=== PATIENT | female | born 1985 | race Caucasian/White ===

== ENCOUNTER 2020-05-10 14:27 | Outpatient (REF) | payer MEDICARE, MEDICAID, SELFPAY ==
[2020-05-10 17:29] LABS: Syphilis Screen Nonreactive (Nonreactive)
[2020-05-11 04:06] LABS: HBsAGNum1 0.26 S/CO (0.00-0.99); HIV AB/AG Nonreactive (Nonreactive); HIV Num 1 0.13 S/CO (0.00-0.99); Hepatitis B Surface Antigen Negative (Negative); ~Hepatitis C Antibody Nonreactive (Nonreactive)
[2020-05-11 09:36] LABS: BV Int Neg Control Negative (Negative); BV Int Pos Control Positive (Positive)
[2020-05-16 11:34] LABS: CT PCR DETECTED (Not Detect.); NG PCR DETECTED (Not Detect.)
== END 2020-05-10 14:28 | disposition home or self-care (01) ==
LOC: HO.LAB 14:27
PROVIDERS: Visit Provider Advanced Practice Midwife
DX: Z01.419 Encounter for gynecological examination (general) (routine) without abnormal findings (principal); Z20.2 Contact with and (suspected) exposure to infections with a predominantly sexual mode of transmission
CPT/HCPCS: 86780; 86803; 87340; 87389; 87480; 87491; 87510; 87591; 87660

== ENCOUNTER 2020-07-08 15:14 | Emergency (ER) | payer MEDICARE, MEDICAID, SELFPAY ==
[2020-07-08 15:38] VITALS: BP 122/60; PULSE 75; RESP 16; TEMP 36.8; O2SAT 97; BMI 23.1
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
[2020-07-08 19:43] VITALS: BP 121/62; PULSE 60; RESP 20; O2SAT 97
[2020-07-08] MEDS: Ibuprofen 600 MG TABLET PO (20:02)
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
== END 2020-07-08 20:10 | disposition home or self-care (01) ==
PROVIDERS: Emergency Provider Internal Medicine
DX: S06.0X0A Concussion without loss of consciousness, initial encounter (principal); S22.32XA Fracture of one rib, left side, initial encounter for closed fracture; S01.81XA Laceration without foreign body of other part of head, initial encounter; Y04.2XXA Assault by strike against or bumped into by another person, initial encounter; Y93.9 Activity, unspecified; Y92.9 Unspecified place or not applicable; Y99.9 Unspecified external cause status; Z95.0 Presence of cardiac pacemaker
CPT/HCPCS: 70450; 71250; 72125; 90471; 90715; 99284

== ENCOUNTER → 2020-07-31 13:22 | Outpatient (BNVA) | payer MEDICARE, MEDICAID, SELFPAY | PROVIDERS: Visit Provider Internal Medicine | DX: I49.5 Sick sinus syndrome (principal); I49.8 Other specified cardiac arrhythmias; Z95.0 Presence of cardiac pacemaker | CPT/HCPCS: 93005; 99212 ==

== ENCOUNTER → 2020-08-09 11:33 | Outpatient (BNVA) | payer MEDICARE, MEDICAID, SELFPAY | PROVIDERS: Visit Provider Advanced Practice Midwife ==

== ENCOUNTER 2020-09-07 12:35 | Emergency (ER) | payer OTHER, SELFPAY ==
--- NOTE | ~2020-09-07 | XR_ITS ---
EXAMINATION: XR SHOULDER, RIGHT CLINICAL INFORMATION: Post reduction COMPARISON: 09/07/2020 TECHNIQUE: There are 2 additional views of the right shoulder with an additional post reduction view of the right shoulder. FINDINGS: On the initial 2 images, there is residual anterior subluxation of the right humeral head in relation to the glenoid. On the final internal rotation image, alignment at the glenohumeral joint appears improved and now anatomic. There is no acute fracture. There is a depression along the superolateral aspect of the humeral head, consistent with a Hill-Sachs deformity. XR/XR shoulder RT min 2V IMPRESSION: Reduction of the right shoulder dislocation. Appropriate alignment on the final image.
--- NOTE | ~2020-09-07 | XR_ITS ---
EXAMINATION: XR SHOULDER, RIGHT CLINICAL INFORMATION: Fall in shower. Shoulder dislocation. COMPARISON: 01/04/2019 TECHNIQUE: Two views of the right shoulder. FINDINGS: There is anterior dislocation of the humeral head in relation to the glenoid. No acute fractures are seen. The acromioclavicular joint is intact. Overlying ribs are intact. The visualized lung is clear. XR/XR shoulder RT min 2V IMPRESSION: Anterior right shoulder dislocation.
--- NOTE | ~2020-09-07 | XR_ITS ---
EXAMINATION: XR SHOULDER, RIGHT CLINICAL INFORMATION: Post reduction COMPARISON: 09/07/2020 TECHNIQUE: There are 2 additional views of the right shoulder with an additional post reduction view of the right shoulder. FINDINGS: On the initial 2 images, there is residual anterior subluxation of the right humeral head in relation to the glenoid. On the final internal rotation image, alignment at the glenohumeral joint appears improved and now anatomic. There is no acute fracture. There is a depression along the superolateral aspect of the humeral head, consistent with a Hill-Sachs deformity. XR/XR shoulder RT 1V IMPRESSION: Reduction of the right shoulder dislocation. Appropriate alignment on the final image.
[2020-09-07 12:51] VITALS: BP 140/62; PULSE 68; RESP 18; TEMP 36.8; O2SAT 94; BMI 22.4
--- NOTE | 2020-09-07 13:54 | ED_ITS ---
HPI - Extremity Problem General Chief complaint: Extremity Injury, Upper Stated complaint: R SHOULDER OUT Time Seen by Provider: 09/07/20 13:47 Source: patient Mode of arrival: ambulatory Limitations: no limitations History of Present Illness HPI Narrative: States having right shoulder dislocation after reaching over and drying herself after shower has had history of dislocation in the past. MD Complaint: extremity pain (Right shoulder) Onset (ago): hour(s) (1 hour prior to arrival) Location: right and upper extremity Quality: aching Radiation: none Relieving factors: immobilization Exacerbating factors: range of motion and palpation Associated symptoms: denies other symptoms Related Data Home Medications Medication Instructions Recorded Confirmed divalproex 500 mg tablet,delayed 500 mg PO DAILY tab 07/31/20 07/31/20 release quetiapine 50 mg tablet 100 mg PO BEDTIME 07/31/20 07/31/20 Previous Rx's Medication Instructions Recorded cyclobenzaprine 5 mg PO TID PRN #14 tab 09/07/20 ibuprofen 800 mg PO Q8H PRN #30 tab 09/07/20 Allergies Allergy/AdvReac Type Severity Reaction Status Date / Time No Known Allergies Allergy Verified 08/09/20 11:34 [No Known Allergies*] Review of Systems Review of Systems: Constitutional: No Weight loss, No Fever, No Chills, No Night Sweats, No Fatigue, No Malaise ENT/Mouth: No Hearing loss, No Ear Pain, No Nasal Congestion, No Sinus Pain, No Hoarseness, No sore throat, No Rhinorrhea, No Swallowing Difficulty Eyes: No Eye Pain, No Swelling, No Redness, No Foreign Body, No Discharge, No Vision Changes Cardiovascular: No Chest Pain, No SOB, No Dyspnea on Exertion, No Orthopnea, No Edema, No Palpitations Respiratory: No Cough, No Sputum, No Wheezing, No Dyspnea Gastrointestinal: No Nausea, No Vomiting, No Diarrhea, No Constipation, No abdominal Pain, No Hematochezia, No Melena Genitourinary: no irregular bleeding, No Dysuria, No Urinary Frequency, No Hematuria, No Urinary Incontinence, No Urgency, No Flank Pain, No Urinary Flow Changes, No Hesitancy Musculoskeletal: No joint pain, No Myalgias, No Joint Swelling, as noted per HPI Skin: No Skin Lesions, No rash Neuro: No Weakness, No Numbness, No Paresthesias, No Loss of Consciousness, No Dizziness, No Headache Psych: No Social Issues Heme/Lymph: No Bruising, No Bleeding,No Lymphadenopathy Endocrine: No Polyuria, No Polydipsia, No Temperature Intolerance Yes all other systems are reviewed and are negative [facility] Past Medical History Medical History Atrial arrhythmia Bradycardia Hx of bipolar disorder Normally functioning cardiac pacemaker present Pacemaker Sick sinus syndrome Speech impediment Surgical History Hx of cardiac pacemaker (~2014) Hx of laparoscopy Family History Family History (Updated 07/31/20 @ 13:52 by DEZ Geiger) Father No problems noted. Mother No problems noted. Social History Social History Alcohol intake: never Smoking Status: Never smoker Advance Directives: No Advance Directives Information Provided: Yes Sexual orientation: Straight/Heterosexual Physical Exam Vital Signs: Vital Signs: Last Vital Signs Temp 98.3 F 09/07/20 12:51 Pulse 50 09/07/20 14:20 Resp 12 09/07/20 14:20 BP 109/63 09/07/20 14:20 Pulse Ox 98 09/07/20 14:20 Body Mass Index 22.4 Reviewedf Const: General: cooperative and healthy appearing; No acute distress or intoxicated appearing Nutritional Appearance: average body habitus Orientation/consciousness: patient oriented x3 HENMT: Head: Yes normal to inspection Ears: hearing grossly normal bilaterally Eyes: General: appearance normal, both eyes and all related structures Visual Ruiz: normal visual ruiz by confrontation Neck: Neck: Yes normal visual inspection, No positive Brudzinski's sign, No positive Kernig's sign and No tender Thyroid: Thyroid normal Chest: Chest palpation & inspection: normal inspection of the chest Resp: Effort & Inspection: normal respiratory effort Auscultation: clear to auscultation bilaterally Cardio: Jugular venous distension: no JVD Rhythm: regular rhythm Heart sounds: S1 normal heart sound present and S2 normal heart sound present GI: Inspection: Yes normal to inspection Percussion: Yes normal to percussion Auscultation: normal bowel sounds : General: Yes no CVA tenderness Back/Spine/Pelvis: Back: no CVA tenderness Skin: General skin exam: no rashes or lesions noted Neuro: General: patient oriented x3 Extrem: Other: Distally cap refill within normal limits, no tenting, pulses within normal limits. Sensation within normal limits. No swelling. General: Yes normal to inspection Right upper extremity: shoulder/upper arm Details: abnormal to inspection Details: obvious dislocation (Anterior) and tenderness Course Course Course Narrative: Interview 34-year-old female with above history presenting with complaint of right shoulder pain feels like her shoulder dislocated has history of it had x-rays done upon arrival showed findings consistent with anterior dislocation subsequently brought to ED room and IV placed she has had this done before and did well with reduction in the past IV line established and given 100 mcqs of fentanyl and shoulder was reduced with ease using the Barnwell method and post reduction x-ray was done to confirm and it showed: Reduction of the right shoulder dislocation. Appropriate alignment on the final image. Patient placed in a shoulder immobilizer and given follow-up with Orthopedics. Will give her ibuprofen for pain, home care, return, follow-up instructions provided. She is stable for discharge. Procedures Orthopedic Joint Reduction Joint #1: Time Out Performed: Yes Side: right Joint Reduction Location: shoulder Analgesia: other (100 mcg of fentanyl) Shoulder Technique Used (if applicable): other ( Barnwell method) Post-reduction neuro exam: intact Post Reduction X-Ray Obtained: Yes Splint Applied: Yes Patient Tolerated Procedure: well MDM - Extremity (Nontraumatic) Imaging Data Right shoulder x-ray: Radiologist's impression: [address] [id number] ReportSigned Patient: Domingo Pa#: [id number]: 1985Acct:[id number]/Sex: 34 / FADM Date: 09/07/20Loc: HO.EDAttending Dr: Ordering Physician: Generic ED Physician Date of Service: 09/07/20 Procedure(s): XR shoulder RT min 2V Accession Number(s): [id number] cc: Generic ED Physician~ EXAMINATION: XR SHOULDER, RIGHT CLINICAL INFORMATION: Fall in shower. Shoulder dislocation. COMPARISON: 01/04/2019 TECHNIQUE: Two views of the right shoulder. FINDINGS: There is anterior dislocation of the humeral head in relation to the glenoid. No acute fractures are seen. The acromioclavicular joint is intact. Overlying ribs are intact. The visualized lung is clear. XR/XR shoulder RT min 2V IMPRESSION: Anterior right shoulder dislocation. Dictated By:Danis Echavarria MDSigned By:<Electronically signed by Danis Echavarria MD in [place]>09/07/20 1324 DD/ 1320TD/TT: Water Resource Manager: EDINSON Right shoulder x-ray post reduction: Radiologist's impression: [address] [id number] ReportSigned Patient: Domingo Pa#: [id number]: 1985Acct:[id number]/Sex: 34 / FADM Date: 09/07/20Loc: [facility].EDAttending Dr: Ordering Physician: Ramos Silvestre NP Date of Service: 09/07/20 Procedure(s): XR shoulder RT min 2V Accession Number(s): [id number] cc: Ramos Silvestre NP~ EXAMINATION: XR SHOULDER, RIGHT CLINICAL INFORMATION: Post reduction COMPARISON: 09/07/2020 TECHNIQUE: There are 2 additional views of the right shoulder with an additional post reduction view of the right shoulder. FINDINGS: On the initial 2 images, there is residual anterior subluxation of the right humeral head in relation to the glenoid. On the final internal rotation image, alignment at the glenohumeral joint appears improved and now anatomic. There is no acute fracture. There is a depression along the superolateral aspect of the humeral head, consistent with a Hill-Sachs deformity. XR/XR shoulder RT min 2V IMPRESSION: Reduction of the right shoulder dislocation. Appropriate alignment on the final image. Dictated By:Danis Echavarria MDSigned By:<Electronically signed by Danis Echavarria MD in [place]>09/07/20 1500 DD/ 1445TD/TT: Water Resource Manager: EDINSON Discharge Plan Discharge Clinical Impression: Dislocation of shoulder Qualifiers: Encounter type: initial encounter Laterality: right Qualified Code(s): S43.004A - Unspecified dislocation of right shoulder joint, initial encounter Patient Disposition: Home, Self-Care Instructions: Closed Reduction (ED) Additional Instructions: Wear splint for comfort Limit activity as reviewed Follow-up with Orthopedics as discussed Return if any concerns Otherwise follow-up as discussed Thank you Prescriptions: New ibuprofen 800 mg tablet 800 mg PO Q8H PRN (Reason: pain) Qty: 30 RF: 0 cyclobenzaprine 5 mg tablet 5 mg PO TID PRN (Reason: muscle spasm) Qty: 14 RF: 0 No Action quetiapine 50 mg tablet 100 mg PO BEDTIME RF: 0 divalproex [Depakote] 500 mg tablet,delayed release (DR/EC) 500 mg PO DAILY RF: 0 Referrals: Norah Henley MD [Physician] - 1 week
[2020-09-07] MEDS: 0.9 % Sodium Chloride 1,000 ML 999 ML IV (14:17)
[2020-09-07] MEDS: ondansetron HCL 4 MG/2 ML VIAL IVPUSH (14:17)
[2020-09-07] MEDS: fentaNYL citrate/PF 100 MCG/2 ML VIAL IVPUSH (14:17)
[2020-09-07 14:20] VITALS: BP 109/63; PULSE 50; RESP 12; O2SAT 98
== END 2020-09-07 16:08 | disposition home or self-care (01) ==
PROVIDERS: Emergency Provider Emergency Medicine Emergency Medical Services
DX: S43.004A Unspecified dislocation of right shoulder joint, initial encounter (principal); X50.1XXA Overexertion from prolonged static or awkward postures, initial encounter; Y93.E1 Activity, personal bathing and showering; Y92.012 Bathroom of single-family (private) house as the place of occurrence of the external cause; Y99.9 Unspecified external cause status
CPT/HCPCS: 23650; 73020; 73030; 96361; 96374; 96375; 99284; J2405; J3010

== ENCOUNTER 2021-06-29 06:20 | Emergency (ER) | payer OTHER, SELFPAY ==
--- NOTE | ~2021-06-29 | XR_ITS ---
EXAMINATION: XR SHOULDER, RIGHT CLINICAL INFORMATION: Pain COMPARISON: 09/07/2020 TECHNIQUE: Two views of the right shoulder. FINDINGS: Limited exam with 2 views of the right shoulder. No dislocation. No displaced fracture appreciated. Acromioclavicular joint is intact. Soft tissues unremarkable. XR/XR shoulder RT min 2V IMPRESSION: Limited exam with 2 views, no clear dislocation or fracture.
[2021-06-29 06:30] VITALS: BP 127/79; PULSE 82; RESP 16; TEMP 36.6; O2SAT 96; BMI 22.3
[2021-06-29 06:52] VITALS: BP 80/54; PULSE 78; RESP 16; TEMP 36.6; O2SAT 100
[2021-06-29 08:18] VITALS: BP 101/54
--- NOTE | 2021-06-29 08:18 | ED_ITS ---
HPI - Extremity Problem General Chief complaint: Extremity Injury, Upper Stated complaint: dislocated/broken bone Time Seen by Provider: 06/29/21 06:59 Source: patient Mode of arrival: ambulatory Limitations: no limitations History of Present Illness HPI Narrative: Patient is a 35-year-old female with a past medical history of sick sinus syndrome, and pacemaker, bipolar disorder. She reports a few hours prior to arrival she was sleeping and turned onto her side when she felt a sudden pop to her right shoulder with stabbing pain and hand numbness. At the time of my exam, she reports that she thinks her shoulder was dislocated but has since popped back into place. Her pain has improved, and she is no longer endorsing hand numbness. She does report a past right shoulder dislocation 1 year ago. She denies any associated fevers, chills, chest pain palpitations, shortness of breath, nausea, vomiting, abdominal pain. MD Complaint: extremity pain Onset (ago): hour(s) Pain Consistency: constant Location: right and upper extremity Severity scale (1-10): 3 Quality: stabbing Radiation: none Relieving factors: nothing Exacerbating factors: range of motion Associated symptoms: denies other symptoms Related Data Home Medications Medication Instructions Recorded Confirmed divalproex 500 mg tablet,delayed 500 mg PO DAILY tab 07/31/20 07/31/20 release (Depakote) quetiapine 50 mg tablet 100 mg PO BEDTIME 07/31/20 07/31/20 Previous Rx's Medication Instructions Recorded cyclobenzaprine 5 mg tablet 5 mg PO TID PRN #14 tab 09/07/20 ibuprofen 800 mg tablet 800 mg PO Q8H PRN #30 tab 09/07/20 Allergies Allergy/AdvReac Type Severity Reaction Status Date / Time No Known Allergies Allergy Verified 08/09/20 11:34 [No Known Allergies*] Review of Systems Review of Systems: Constitutional : No Weight loss, No Fever, No Chills, ENT/Mouth : No Hearing loss, No Ear Pain, No Nasal Congestion, No Sinus Pain, No Hoarseness, No sore throat, No Rhinorrhea, No Swallowing Difficulty Cardiovascular : No Chest Pain, No SOB Respiratory : No Cough, No Dyspnea Gastrointestinal : No Nausea, No Vomiting, No Diarrhea, No abdominal Pain, No Hematochezia, No Melena Genitourinary : No Dysuria, No Urinary Frequency, No Hematuria, No Urinary Incontinence, Musculoskeletal : resolving right shoulder pain. Skin : No Skin Lesions, No rash Neuro : No Weakness, No Numbness, No headache All other systems reviewed and are negative [facility] Past Medical History Attestation statement: The following information was validated with the patient. Source: old records reviewed Medical History Atrial arrhythmia Bradycardia Hx of bipolar disorder Normally functioning cardiac pacemaker present Pacemaker Sick sinus syndrome Speech impediment Surgical History Hx of cardiac pacemaker (~2014) Hx of laparoscopy Family History Family History Father No problems noted. Mother No problems noted. Social History Social History Alcohol intake: never Patient Tobacco Use Status: Never used Tobacco Use of substances other than those prescribed or required for medical reasons: No Advance Directives: No Advance Directives Information Provided: No Sexual orientation: Straight/Heterosexual Physical Exam Vital Signs: Vital Signs: Last Vital Signs Temp 97.9 F 06/29/21 06:52 Pulse 51 06/29/21 08:46 Resp 16 06/29/21 08:46 BP 97/57 L 06/29/21 08:46 Pulse Ox 99 06/29/21 08:46 BMI result Body Mass Index 22.3 Vital signs have been reviewed as normal and appeared to be correct. Blood pressure normal. Heart rate normal.? Respiration rate normal. Temperature normal.? Oxygen saturation normal. Appearance: Alert.?Oriented to person, place and time. No acute distress.?Normal affect. Eyes: Pupils equal, round and reactive to light.? ENT: Pharynx normal.?? Neck: Normal inspection.? Neck supple.?? CVS: Heart sounds normal. Normal heart rate and rhythm.? Pulses normal.?? Respiratory: No respiratory distress.? Lung sounds clear to auscultation bilaterally?? Abdomen: Soft and non-tender. Normoactive bowel sounds. No pulsatile mass.?? Skin: Skin warm and dry.? Normal skin color.? Normal skin turgor.?? MSK: active range of motion to right shoulder intact; full forward flexion, extension, lateral rotation, medial rotation, abduction just beyond greater than 90?, does have some pain beyond that. No obvious deformity. Palpable radial pulse 2+ Extremities: No lower extremity edema.? Neuro: Moves all extremities spontaneously. Sensation intact bilaterally. No focal neuro deficits. Course Course Course Narrative: The patient is a 35-year-old female being evaluated in the emergency department for right shoulder pain, which she presumed to be dislocated. X-ray of the right shoulder reveals no dislocation or fracture. Active range of motion intact. Patient to be discharged home, discussed return precautions, patient agreeable with plan of care, questions answered. MDM - Extremity (Nontraumatic) Medical Records Attestation: I reviewed the patient's medical records. Imaging Data shoulder x-ray: Attestation: I personally reviewed and interpreted this imaging study as follows: Radiologist's impression: IMPRESSION: Limited exam with 2 views, no clear dislocation or fracture. Discharge Plan Discharge Clinical Impression: Acute shoulder pain Patient Disposition: Home, Self-Care Instructions: Shoulder Pain (ED) Additional Instructions: Your were evaluated the emergency department for right shoulder pain, which you thought was dislocated. As we discussed the x-ray obtained of your shoulder indicated that you do not have any dislocation or fracture. While you were here you were able to move your right arm and shoulder through different ranges of motion without difficulty. If you continue to have any mild pain you can use Tylenol or ibuprofen in addition to topical heat and cold therapy. Please return to the emergency department for any new or worsening symptoms or concerns Prescriptions: No Action ibuprofen 800 mg tablet 800 mg PO Q8H PRN (Reason: pain) Qty: 30 RF: 0 cyclobenzaprine 5 mg tablet 5 mg PO TID PRN (Reason: muscle spasm) Qty: 14 RF: 0 quetiapine 50 mg tablet 100 mg PO BEDTIME RF: 0 divalproex [Depakote] 500 mg tablet,delayed release (DR/EC) 500 mg PO DAILY RF: 0 Interventions: ED Discharge Assessment Last Done: 06/29/21 08:46
[2021-06-29 08:46] VITALS: BP 97/57; PULSE 51; RESP 16; O2SAT 99
== END 2021-06-29 09:02 | disposition home or self-care (01) ==
PROVIDERS: Emergency Provider Emergency Medicine Emergency Medical Services
DX: M25.511 Pain in right shoulder (principal); Z95.0 Presence of cardiac pacemaker
CPT/HCPCS: 73030; 99283; 99284

== ENCOUNTER 2022-03-04 09:08 | Emergency (ER) | payer OTHER, SELFPAY ==
[2022-03-04] VITALS (9 sets, daily range): BP systolic 85–130; BP diastolic 53–82; PULSE 50–110; RESP 10–17; O2SAT 97–100; BMI 24.0
--- NOTE | ~2022-03-04 | XR_ITS ---
EXAMINATION: XR SHOULDER, RIGHT CLINICAL INFORMATION: Postreduction evaluation COMPARISON: 06/29/2021 TECHNIQUE: AP external rotation, Grashey, scapular Y, and axillary views of the right shoulder. FINDINGS: There is no dislocation. No fracture or alignment abnormality. XR/XR shoulder RT min 2V IMPRESSION: Unremarkable study. No fracture or dislocation seen at this time.
--- NOTE | 2022-03-04 09:16 | ED_ITS ---
HPI - Extremity Injury (Upper) General Chief Complaint: Extremity Injury, Upper Stated Complaint: RT SHOULDER DISLOCATION Time Seen by Provider: 03/04/22 09:09 Source: patient Mode of arrival: EMS Limitations: no limitations History of Present Illness HPI narrative: dislocation while putting shoulder on hx of chronic dislocations complaint: injury to: right and shoulder Onset (ago): hour(s) (12) Other Extremity Injury: right: arm Other injuries: none Handedness: right Place: home Severity: severe Relieving factors: immobilization Exacerbating factors: movement of extremity Context: other (stretched arm too far chronic issue) Associated symptoms: denies other symptoms Treatments prior to arrival: other (kept it immobilized) Related Data Home Medications Medication Instructions Recorded Confirmed divalproex 500 mg tablet,delayed 500 mg PO DAILY 07/31/20 07/31/20 release (Depakote) quetiapine 50 mg tablet 100 mg PO BEDTIME 07/31/20 07/31/20 Previous Rx's Medication Instructions Recorded cyclobenzaprine 5 mg tablet 5 mg PO TID PRN muscle spasm #14 09/07/20 tabs ibuprofen 800 mg tablet 800 mg PO Q8H PRN pain #30 tabs 09/07/20 cyclobenzaprine 10 mg tablet 10 mg PO TID PRN muscle spasm #14 03/04/22 tabs ibuprofen 600 mg tablet 600 mg PO Q6H PRN pain #30 tabs 03/04/22 Allergies Allergy/AdvReac Type Severity Reaction Status Date / Time No Known Allergies Allergy Verified 08/09/20 11:34 [No Known Allergies*] Review of Systems Review of Systems: Constitutional : No Fever, No Chills ENT/Mouth : No Ear Pain, No Hoarseness, No sore throat Eyes: No Eye Pain, No Swelling, No Redness, No Foreign Body Cardiovascular : No Chest Pain, No SOB Respiratory : No Cough, No Dyspnea Gastrointestinal : No Nausea, No Vomiting, No Diarrhea, No abdominal Pain Genitourinary : No Dysuria, No Hematuria Musculoskeletal : positive joint pain, No Myalgias, No Joint Swelling Skin : No Skin lacerations, No rash Neuro : No Weakness, No Numbness, No Loss of Consciousness, No Dizziness, No Headache Psych : No Anxiety/Panic, No Depression Heme/Lymph: no easy bruising, no Lymphadenopathy Endocrine : No Polyuria, No Polydipsia All other systems reviewed and are negative PMFSH Past Medical History Attestation statement: The following information was validated with the patient. Medical History Atrial arrhythmia Bradycardia Hx of bipolar disorder Normally functioning cardiac pacemaker present Pacemaker Sick sinus syndrome Speech impediment Surgical History Hx of cardiac pacemaker (~2015) Hx of laparoscopy Family History Family History Father No problems noted. Mother No problems noted. Social History Social History Alcohol intake: never Patient Tobacco Use Status: Never used Tobacco Advance Directives: No Advance Directives Information Provided: No Sexual orientation: Straight/Heterosexual Physical Exam Vital Signs: Vital Signs: Last Vital Signs Pulse 53 03/04/22 11:22 Resp 10 L 03/04/22 11:22 BP 101/57 L 03/04/22 11:27 Pulse Ox 99 03/04/22 11:22 O2 Del Method 03/04/22 11:22 Oxygen Flow Rate 0 03/04/22 09:42 BMI result Body Mass Index 24.0 Appearance: Alert. Oriented X3. in pain mild acute distress. Eyes: Pupils equal, round and reactive to light. ENT: Pharynx normal. Neck: Normal inspection. Neck supple. CVS: Normal heart rate and rhythm. Pulses normal. Respiratory: No respiratory distress. Breath sounds normal. Abdomen: Soft and nontender. Skin: Skin warm and dry. Normal skin color. Normal skin turgor. Extremities: No lower extremity edema. R shoulder deltoid sensation intact, R shoulder deformity obvious deformity consistent with dislocation. Distal 2+ radial pulse Neuro: Oriented X 3. No motor deficit. No sensory deficit. Course Course Course Narrative: back to baseline. eating, wants to leave, xrays improved MDM - Extremity Injury (Upper) MDM Narrative Medical decision making narrative: 36 yo female with hx of multiple shoulder dislocations she was supposed to have surgery in the past, reached for a shirt last night and her R shoulder dislocation will need sedation and reduction. Procedures Orthopedic Joint Reduction Joint #1: Time Out Performed: Yes Side: right Joint Reduction Location: shoulder Analgesia: procedural sedation Shoulder Technique Used (if applicable): external rotation Technique used: direct manipulation Post-reduction neuro exam: intact Post-reduction vascular: intact Post Reduction X-Ray Obtained: Yes Post Reduction X-Ray Results: reduced Splint Applied: Yes Patient Tolerated Procedure: well and no complications Orthopedic Splinting/Casting Injury #1: Side: right Upper Extremity Injury Location: shoulder Upper Extremity Immobilizer: sling/shoulder immobilizer Additional Comments: NV intact post sling Procedural Sedation Indication: fracture/dislocation reduction ASA Class: II Mallampati Class: I Time of Last PO Intake: 21:00 Preparation: potline monitor applied, pulse oximeter, capnometry used, supplemental O2 applied, reversal agents at bedside, suction/airway equipment at bedside and IV secured IV Propofol dose (mg): 70 Patient Tolerated Procedure: well and no complications Complications: none Critical Care Time Critical Care Time Critical Care Time: Yes Total Critical Care Time: 35 Attestation: repeat assessments, treatment of shoulder dislocation I attest to this time spent taking care of the patient Discharge Plan Discharge Clinical Impression: Dislocated shoulder Qualifiers: Encounter type: initial encounter Laterality: right Qualified Code(s): S43.004A - Unspecified dislocation of right shoulder joint, initial encounter Patient Disposition: Home, Self-Care Instructions: Shoulder Dislocation (ED), Moderate Sedation (ED) Additional Instructions: return to ED for any worsening symptoms or concerns sling x 1 week - move wrist and elbow start slow movements, no reaching over head or behind you for two weeks follow up with orthopedics Prescriptions: New cyclobenzaprine 10 mg tablet 10 mg PO TID PRN (Reason: muscle spasm) Qty: 14 0RF ibuprofen 600 mg tablet 600 mg PO Q6H PRN (Reason: pain) Qty: 30 0RF No Action ibuprofen 800 mg tablet 800 mg PO Q8H PRN (Reason: pain) Qty: 30 0RF cyclobenzaprine 5 mg tablet 5 mg PO TID PRN (Reason: muscle spasm) Qty: 14 0RF quetiapine 50 mg tablet 100 mg PO BEDTIME divalproex [Depakote] 500 mg tablet,delayed release (DR/EC) 500 mg PO DAILY Referrals: Carlos A Guan MD [Physician] - 1 week Stand Alone Forms: Work/School Release Interventions: ED Discharge Assessment Last Done: 03/04/22 11:40 Discharge Date/Time: 03/04/22 11:57
[2022-03-04] MEDS: ondansetron HCL 4 MG/2 ML VIAL IVPUSH (09:38)
[2022-03-04] MEDS: 0.9 % Sodium Chloride 1,000 ML 999 ML IV (09:38)
[2022-03-04] MEDS: propofoL 200 MG/20 ML VIAL 100 MG IVPUSH (09:42)
--- NOTE | 2022-03-04 09:55 | PC.NURSE ---
procedural sedation started at 937, IVF 1000ml NS hung at this time and Zofran given per AUG 941 50mg Diprivan given per MD 943 another 20mg Diprivan given per . 944 procedure end time, xray at bedside to complete imaging. pt tolerated procedure well. alert and oriented x4 at this time
== END 2022-03-04 11:57 | disposition home or self-care (01) ==
LOC: HO.ED 11:44
PROVIDERS: Emergency Provider Emergency Medicine
DX: M24.411 Recurrent dislocation, right shoulder (principal); M25.511 Pain in right shoulder
CPT/HCPCS: 23655; 73030; 96361; 96374; 96375; 99284; J2405

== ENCOUNTER 2022-07-30 03:42 | Emergency (ER) | payer OTHER, SELFPAY ==
--- NOTE | ~2022-07-30 | XR_ITS ---
EXAMINATION: XR SHOULDER, RIGHT CLINICAL INFORMATION: Pain COMPARISON: 03/04/2022 TECHNIQUE: One view of the right shoulder. FINDINGS: Suboptimal assessment of glenohumeral alignment with only a single view obtained. However, alignment does not appear anatomic and is most suspicious for anterior glenohumeral dislocation. No acute fracture is seen. Acromioclavicular joint is intact. XR/XR shoulder RT 1V IMPRESSION: Appearance suspicious for anterior glenohumeral dislocation, though only a single view was obtained; this could be confirmed with an axillary or scapular Y view.
--- NOTE | ~2022-07-30 | XR_ITS ---
EXAMINATION: XR SHOULDER, RIGHT CLINICAL INFORMATION: Post reduction COMPARISON: Shoulder radiographs from earlier today TECHNIQUE: Two views of the right shoulder. FINDINGS: Suboptimal assessment of the scapular Y view, with technologist's note indicating difficulties with patient positioning. On the AP view of the glenohumeral alignment now appears anatomic. Hill-Sachs deformity is suspected in the humeral head. No acute fracture is seen. Soft tissue calcification noted inferior to the glenohumeral joint. Acromioclavicular joint is intact. XR/XR shoulder RT min 2V IMPRESSION: Glenohumeral alignment now appears anatomic.
[2022-07-30 03:50] VITALS: BP 118/60; PULSE 78; O2SAT 99
[2022-07-30 03:56] VITALS: BP 108/49; PULSE 54; RESP 16; TEMP 36.1; O2SAT 99; BMI 22.3
--- OUTSIDE RECORDS SUMMARY | 2022-07-30 04:28 | XMS_ITS | Continuity of Care Document ---
:1985 Author Organization [facility] Address [address] [place] [phone]- Care Team Providers Name Role Phone Ada CANELA, Jake S Primary Care Physician Encounter [facility] Date(s): 07/30/19 - 09/08/19 [facility] [address] [place] [id number]- [facility] Attending Physician: Xuan Bowles MD Admitting Physician: Xuan Bowles MD Referring Physician: Rachana Balderas DO Allergies, Adverse Reactions, Alerts Substance Reaction Severity Status NKA Active Immunizations Given and Recorded Vaccine Date Status Refusal Reason influenza virus vaccine, inactivated1 07/29/19 Recorded Hepatitis B Vaccine (old term) 05/13/01 Given Hepatitis B Vaccine (old term)2 09/05/00 Given Hepatitis B Vaccine (old term) 02/27/00 Given tetanus-diphtheria toxoids (Td)3 02/05/99 Given Measles/Mumps/Rubella Virus Vaccine4 04/07/96 Given Measles/Mumps/Rubella Virus Vaccine 03/08/89 Given Miscellaneous Vaccine5 03/08/93 Given Miscellaneous Vaccine6 07/08/89 Given Miscellaneous Vaccine7 06/07/88 Given Miscellaneous Vaccine8 03/08/88 Given Diphth/Pertussis,Acel/Tetanus (oldterm)9 03/08/93 Given Diphth/Pertussis,Acel/Tetanus (oldterm)10 07/08/89 Given Diphth/Pertussis,Acel/Tetanus (oldterm)11 08/06/88 Given Diphth/Pertussis,Acel/Tetanus (oldterm)12 06/07/88 Given Diphth/Pertussis,Acel/Tetanus (oldterm)13 03/08/88 Given Haemophilus B Conj Vaccine (oldterm)14 07/08/89 Given 1Result Comment: administered left amw9Bcbuh Note: exact date crrawia1Dsgui Note: exact date zetxjii5Pgoxl Note: exact date ubsqdtm1Wcpro Note: POLIO(oral) exact date amlekpm9Hdrtf Note: POLIO(oral) exact date bmqfzrl8Uoqqp Note: POLIO(oral) exact date lqhlfmc7Uiwlr Note: POLIO(oral) exact date jsxmfqm3Kcima Note: exact date xxoqmey00Xzpwg Note: exact date sgetxeh33Sjuog Note: exact date hhwfvuf73Pbgim Note: exact date boxvdad24Tnedh Note: exact date vhamofo61Dixty Note: exact date unknown Medications Multivitamins with Folic Acid 1 mg oral capsule See Instructions, TAKE ONE DAILY BY MOUTH, # 100 tablet, 2 Refills, Maintenance, 05/12/19 15:04:00 EST, TAKE ONE DAILY BY MOUTH Start Date: 05/12/19 Status: Ordered Problem List Condition Effective Dates Status Health Status Informant Bipolar disorder(Confirmed)1 Active Cardiac pacemaker(Confirmed)2, 3 2014 Active History of depression(Confirmed)4 Active 1[facility] at [facility] Hhsjwk5cbpbhpudeura: Dr. GarciaLbgfrvkzvpq5drh severe bradycardia 4zoloft in the past Social History Social History Type Response Tobacco Use: 4 or less cigarettes(le ss than 1/4 pack)/day in last 30 days. Sex Female
--- OUTSIDE RECORDS SUMMARY | 2022-07-30 04:28 | XMS_ITS | Continuity of Care Document ---
:1985 Author Organization [facility] ic Address [address] [place] [id number]- Care Team Providers Name Role Phone Jake Caballero NP Primary Care Physician Encounter [facility] Date(s): 03/02/21 - 04/01/[address] [id number] Allergies, Adverse Reactions, Alerts Substance Reaction Severity Status NKA Active Immunizations Given and Recorded Vaccine Date Status Refusal Reason tetanus/diphtheria/pertussis, acel(Tdap) 09/13/19 Given influenza virus vaccine, inactivated1 07/29/19 Recorded Hepatitis [...] (oldterm)14 07/08/89 Given 1Result Comment: administered left pfe5Vvzcf Note: exact date uuawpng9Lxkzg Note: exact date rljttoe6Azivq Note: exact date sdtafgc8Lkqgo Note: POLIO(oral) exact date mlxmzqf1Unhen Note: POLIO(oral) exact date dfivsxj8Nvuoz Note: POLIO(oral) exact date dnwbabc4Ktqhu Note: POLIO(oral) exact date wkvwtog4Okwvr Note: exact date elyqzgb48Lgeww Note: exact date zkfogdv85Xaxgi Note: exact date zltaqls22Htqfn Note: exact date ieqvomp65Ibisu Note: exact date wszmuef21Kdhih Note: exact date unknown Medications acetaminophen 325 mg oral tablet 650 mg, By Mouth, Every 4 hours, PRN, Patient should only receive a total of 650mg of Acetaminophen every 4 hours., # 30 tablet, Refills 0, Tot. Refills 0, Maintenance, Pain , Mild, 12/07/19 5:41:00 EDT, Route to Pharmacy Electronically, [facility]/pharmacy... Start Date: 12/07/19 Status: Ordereddocusate sodium 100 mg oral capsule 1 capsule = 100 mg, By Mouth, 2 times a day, # 60 capsule, 0 Refills, Maintenance, 12/07/19 5:41:00 EDT, Capsule, [facility]/pharmacy #[id number], 168, cm, 12/07/19 0:26:00 EDT, Height, 84.3, kg, 12/05/19 21:27:00 EDT, Dry Weight Start Date: 12/07/19 Status: Orderedferrous sulfate 325 mg oral tablet 1 tablet = 325 mg, By Mouth, 2 times a day, # 90 tablet, 2 Refills, Maintenance, 09/16/19 9:16:00 EDT, Tablet, [facility]/pharmacy #[id number], 163, cm, 09/13/19 15:12:00 EDT, Height, 73, kg, 08/22/19 19:22:00 EDT,Dry Weight Start Date: 09/16/19 Status: Orderedibuprofen 600 mg oral tablet 600 mg, 1, tablet, By Mouth, 4 times a day, # 60 tablet, Refills 0, Tot. Refills 0, Maintenance, 12/07/19 5:41:00 EDT, Route to Pharmacy Electronically, [facility]/pharmacy #[id number], 168, cm, 12/07/19 0:26:00 EDT, Height, 84.3, kg, 12/05/19 21:27:00 EDT, Dry We... Start Date: 12/07/19 Status: OrderedPrenatal Plus Low Iron oral tablet 1 tablet, By Mouth, Daily, # 90 tablet, 1 Refills, Maintenance, 02/04/20 10:42:00 EDT, [id number], 90, TAKE 1 TABLET BY MOUTH EVERY DAY, 168, cm, 02/01/20 13:59:00 EDT, Height, 84.3, kg, 12/05/19 21:27:00 EDT, Dry Weight Start Date: 02/04/20 Status: Ordered Problem List Condition Effective Dates Status Health Status Informant Anemia(Confirmed) Active Bipolar disorder(Confirmed)1 Active Cardiac pacemaker(Confirmed)2, 3 2014 Active History of depression(Confirmed)4 Active (Confirmed) Active 1counselor at [facility] Ronmxo2cqhrxpjlbhce: Dr. GarciaXbluiyvwsov3wss severe bradycardia 4zoloft in the past Social History Social History Type Response Smoking Status Never (less than 100 in life time) entered on: 12/05/19 Sex
--- OUTSIDE RECORDS SUMMARY | 2022-07-30 04:28 | XMS_ITS | Continuity of Care Document ---
:1985 Author Organization [facility] ic Address [address] [place] [id number]- Care Team Providers Name Role Phone Ada CANELA, Jake Nair Primary Care Physician Encounter [facility] Date(s): 01/04/21 - 02/03/[address] [id number]- Allergies, Adverse Reactions, Alerts Substance Reaction Severity [...] (oldterm)14 07/08/89 Given 1Result Comment: administered left qxm7Xbggy Note: exact date phxhnee3Nvtjr Note: exact date mortomq9Gzssy Note: exact date mywvggz5Fnkme Note: POLIO(oral) exact date lvtjvhu4Jvoqb Note: POLIO(oral) exact date rksgtyt5Firyw Note: POLIO(oral) exact date xibszby9Mdrwo Note: POLIO(oral) exact date uheyzql7Dogov Note: exact date erqtaqg01Wjasw Note: exact date emjqiog38Sflmo Note: exact date ozjuqsr28Znbgg Note: exact date dfhwpqp21Eajum Note: exact date eykegnx88Otvbd Note: exact date unknown Medications acetaminophen 325 mg oral tablet 650 mg, By Mouth, Every 4 hours, PRN, Patient should only receive a total of 650mg of Acetaminophen every 4 hours., # 30 tablet, Refills 0, Tot. Refills 0, Maintenance, Pain , Mild, 12/07/19 5:41:00 EDT, Route to Pharmacy Electronically, [facility]/pharmacy... Start Date: 12/07/19 Status: Ordereddocusate sodium 100 mg oral capsule 1 capsule = 100 mg, By Mouth, 2 times a day, # 60 capsule, 0 Refills, Maintenance, 12/07/19 5:41:00 EDT, Capsule, [facility]/pharmacy #[id number], 168, cm, 12/07/19 0:26:00 EDT, Height, 84.3, kg, 12/05/19 21:27:00 EDT, Dry Weight Start Date: 12/07/19 Status: Orderedferrous sulfate 325 mg oral tablet 1 tablet = 325 mg, By Mouth, 2 times a day, # 90 tablet, 2 Refills, Maintenance, 09/16/19 9:16:00 EDT, Tablet, [facility]/pharmacy #[id number], 163, cm, 09/13/19 15:12:00 EDT, Height, 73, kg, 08/22/19 19:22:00 EDT,Dry Weight Start Date: 09/16/19 Status: Orderedibuprofen 600 mg oral tablet 600 mg, 1, tablet, By Mouth, 4 times a day, # 60 tablet, Refills 0, Tot. Refills 0, Maintenance, 12/07/19 5:41:00 EDT, Route to Pharmacy Electronically, [facility]/pharmacy #[id number], 168, cm, 12/07/19 0:26:00 EDT, Height, 84.3, kg, 12/05/19 21:27:00 EDT, Dry We... Start Date: 12/07/19 Status: OrderedPrenatal Plus Low Iron oral tablet 1 tablet, By Mouth, Daily, # 90 tablet, 1 Refills, Maintenance, 02/04/20 10:42:00 EDT, [id number], 90, TAKE 1 TABLET BY MOUTH EVERY DAY, 168, cm, 02/01/20 13:59:00 EDT, Height, 84.3, kg, 12/05/19 21:27:00 EDT, Dry Weight Start Date: 02/04/20 Status: Ordered Problem List Condition Effective Dates Status Health Status Informant Anemia(Confirmed) Active Bipolar disorder(Confirmed)1 Active Cardiac pacemaker(Confirmed)2, 3 2014 Active History of depression(Confirmed)4 Active (Confirmed) Active 1counselor at [facility] Jfoltt4dqmavpjmiryk: Dr. GarciaRmtkcfajvcu1jlv severe bradycardia 4zoloft in the past Social History Social History Type Response Smoking Status Never (less than 100 in life time) entered on: 12/05/19 Sex
--- OUTSIDE RECORDS SUMMARY | 2022-07-30 04:28 | XMS_ITS | Continuity of Care Document ---
:1985 Author Organization [facility] ic Address [address] [place] [address]- Care Team Providers Name Role Phone Jake Caballero NP Primary Care Physician [facility] Date[facility]): [facility] - 05/04/[address] [address] Attending Physician: Admtr, Merritt Allergies, Adverse Reactions, Alerts Substance Reaction Severity [...] Given Diphth/Pertussis,Acel/Tetanus (oldterm)12 06/07/88 Given Diphth/Pertussis,Acel/Tetanus (oldterm)13 9/30/88 Given Haemophilus B Conj Vaccine (oldterm)14 07/08/89 Given 1Result Comment: administered left xsx1Ggllm Note: exact date vhsnmep3Nkyju Note: exact date cohepmd2Nnhpr Note: exact date mevscvy4Ugfns Note: POLIO(oral) exact date qynrvsa2Tggxq Note: POLIO(oral) exact date iusicsh9Suxib Note: POLIO(oral) exact date yjsnwag6Otqev Note: POLIO(oral) exact date ocsqxlw5Tyaim Note: exact date mnnmogw35Epvei Note: exact date xygegrs12Ktvxp Note: exact date nwnyhji60Zramr Note: exact date jrbnyro07Ugnyr Note: exact date keblrld99Hincy Note: exact date unknown Medications acetaminophen 325 mg oral tablet 650 mg, By Mouth, Every 4 hours, PRN, Patient should only receive a total of 650mg of Acetaminophen every 4 hours., # 30 tablet, Refills 0, Tot. Refills 0, Maintenance, Pain , Mild, 12/07/19 5:41:00 EDT, Route to Pharmacy Electronically, [facility]/pharmacy... Start Date: 12/07/19 Status: Ordereddocusate sodium 100 mg oral capsule 1 capsule = 100 mg, By Mouth, 2 times a day, # 60 capsule, 0 Refills, Maintenance, 12/07/19 5:41:00 EDT, Capsule, [facility]/pharmacy #[id number], 168, cm, 12/07/19 0:26:00 EDT, Height, 84.3, kg, 12/05/19 21:27:00 EDT, Dry Weight Start Date: 12/07/19 Status: Orderedferrous sulfate 325 mg oral tablet 1 tablet = 325 mg, By Mouth, 2 times a day, # 90 tablet, 2 Refills, Maintenance, 09/16/19 9:16:00 EDT, Tablet, [facility]/pharmacy #[id number], 163, cm, 09/13/19 15:12:00 EDT, Height, 73, kg, 08/22/19 19:22:00 EDT,Dry Weight Start Date: 09/16/19 Status: Orderedibuprofen 600 mg oral tablet 600 mg, 1, tablet, By Mouth, 4 times a day, # 60 tablet, Refills 0, Tot. Refills 0, Maintenance, 12/07/19 5:41:00 EDT, Route to Pharmacy Electronically, [facility]/pharmacy #[id number], 168, cm, 12/07/19 0:26:00 EDT, Height, 84.3, kg, 12/05/19 21:27:00 EDT, Dry We... Start Date: 12/07/19 Status: OrderedPrenatal Plus Low Iron oral tablet 1 tablet, By Mouth, Daily, # 90 tablet, 1 Refills, Maintenance, 02/04/20 10:42:00 EDT, [id number], 90, TAKE 1 TABLET BY MOUTH EVERY DAY, 168, cm, 02/01/20 13:59:00 EDT, Height, 84.3, kg, 12/05/19 21:27:00 EDT, Dry Weight Start Date: 02/04/20 Status: Ordered Problem List Condition Effective Dates Status Health Status Informant Anemia(Confirmed) Active Bipolar disorder(Confirmed)1 Active Cardiac pacemaker(Confirmed)2, 3 2014 Active History of depression(Confirmed)4 Active (Confirmed) Active 1[facility]or at [facility] Egcuie8qkeauztgqdsu: Dr. GarciaTizegzilkds4vmm severe bradycardia 4zoloft in the past Procedures Procedure Date Related Diagnosis Body Site Status Insertion of cardiac pacemaker 2014 Completed Diagnostic laparoscopy1 12/22/12 Comp leted 1hemorragic cyst with hemoperitoneum Vital Signs Most recent to oldest [Reference Range]: 1 Height 163.00 cm (07/07/19 12:53 PM) Social History Social History Type Response Smoking Status Never (less than 100 in life time) entered on: 12/05/19 Sex
--- OUTSIDE RECORDS SUMMARY | 2022-07-30 04:28 | XMS_ITS | Continuity of Care Document ---
:1985 Author Organization [facility] ic Address [address] [place] [address]- Care Team Providers Name Role Phone Jake Caballero NP Primary Care Physician [facility] 12/08/19 - 01/12/[address] [address] [facility] Attending Physician: Not on Staff, Attending MD Allergies, Adverse Reactions, Alerts Substance Reaction Severity [...] (oldterm)14 07/08/89 Given 1Result Comment: administered left eyu6Hujbi Note: exact date ogjpmsn2Qehgc Note: exact date ghqyiwq8Nevlk Note: exact date oyrshfa7Htfjr Note: POLIO(oral) exact date cufmdxl3Ngfya Note: POLIO(oral) exact date wtsvpxz1Jzkyy Note: POLIO(oral) exact date rqueshc4Ymxyy Note: POLIO(oral) exact date laqzxmk4Btcib Note: exact date oiszmel53Fvhbw Note: exact date uoyisoi85Unepm Note: exact date xjtnizw04Dpsbs Note: exact date rslkbix43Vqoyh Note: exact date yeiiikp37Benfa Note: exact date unknown Medications acetaminophen 325 mg oral tablet 650 mg, By Mouth, Every 4 hours, PRN, Patient should only receive a total of 650mg of Acetaminophen every 4 hours., # 30 tablet, Refills 0, Tot. Refills 0, Maintenance, Pain , Mild, 12/07/19 5:41:00 EDT, Route to Pharmacy Electronically, [facility]/pharmacy... Start Date: 12/07/19 Status: Ordereddocusate sodium 100 mg oral capsule 1 capsule = 100 mg, By Mouth, 2 times a day, # 60 capsule, 0 Refills, Maintenance, 12/07/19 5:41:00 EDT, Capsule, [facility]/pharmacy #[id number], 168, cm, 12/07/19 0:26:00 EDT, Height, 84.3, kg, 12/05/19 21:27:00 EDT, Dry Weight Start Date: 12/07/19 Status: Orderedferrous sulfate 325 mg oral tablet 1 tablet = 325 mg, By Mouth, 2 times a day, # 90 tablet, 2 Refills, Maintenance, 09/16/19 9:16:00 EDT, Tablet, [facility]/pharmacy #[id number], 163, cm, 09/13/19 15:12:00 EDT, Height, 73, kg, 08/22/19 19:22:00 EDT,Dry Weight Start Date: 09/16/19 Status: Orderedibuprofen 600 mg oral tablet 600 mg, 1, tablet, By Mouth, 4 times a day, # 60 tablet, Refills 0, Tot. Refills 0, Maintenance, 12/07/19 5:41:00 EDT, Route to Pharmacy Electronically, [facility]/pharmacy #[id number], 168, cm, 12/07/19 0:26:00 EDT, Height, 84.3, kg, 12/05/19 21:27:00 EDT, Dry We... Start Date: 12/07/19 Status: OrderedPrenatal Multivitamins with Folic Acid 1 mg oral capsule 1 capsule, By Mouth, Daily, # 100 capsule, 0 Refills, Maintenance, 09/27/19 14:01:00 EDT, [facility]apsule, [id number], 1 capsule By Mouth Daily, 163, cm, 09/27/19 13:59:00 EDT, Height, 73, kg, 08/21/2018:22:00 EDT, Dry Weight Start Date: 09/27/19 Status: Ordered Problem List Condition Effective Dates Status Health Status Informant Anemia(Confirmed) Active Bipolar disorder(Confirmed)1 Active Cardiac pacemaker(Confirmed)2, 3 2014 Active History of depression(Confirmed)4 Active (Confirmed) Active 1counselor at [facility] Xcdofp5rsgjhwiqxkhe: Dr. GarciaZxnrcszpzxg7zkk severe bradycardia 4zoloft in the past Social History Social History Type Response Smoking Status Never (less than 100 in life time) entered on: 12/05/19 Sex
--- OUTSIDE RECORDS SUMMARY | 2022-07-30 04:28 | XMS_ITS | Continuity of Care Document ---
:1985 Author Organization [facility] ic Address [address] [place] [address]- Care Team Providers Name Role Phone Ada CANELA, Jake Nair Primary Care Physician [facility] 12[facility]07/19 - 02/17/[address] [address]- [facility] Attending Physician: Not on Staff, Attending MD [...] (oldterm)14 07/08/89 Given 1Result Comment: administered left skk6Fftps Note: exact date xzxehfr5Fxwkt Note: exact date fwidoqo0Jzioz Note: exact date ebpwwpn4Keppz Note: POLIO(oral) exact date rbfdgsf8Mzghc Note: POLIO(oral) exact date agygvsx5Ulzhm Note: POLIO(oral) exact date tfkzmei8Knwzb Note: POLIO(oral) exact date caubmwd9Wxtdi Note: exact date octkqtg53Iezuj Note: exact date wqdosyi05Zmhhm Note: exact date ncrpgvm40Flnaw Note: exact date ckddutj09Pexib Note: exact date qvudzox89Lkyxi Note: exact date unknown Medications acetaminophen 325 mg oral tablet 650 mg, By Mouth, Every 4 hours, PRN, Patient should only receive a total of 650mg of Acetaminophen every 4 hours., # 30 tablet, Refills 0, Tot. Refills 0, Maintenance, Pain , Mild, 12/07/19 5:41:00 EDT, Route to Pharmacy Electronically, [facility]/pharmacy... Start Date: 12/07/19 Status: Ordereddocusate sodium 100 mg oral capsule 1 capsule = 100 mg, By Mouth, 2 times a day, # 60 capsule, 0 Refills, Maintenance, 12/07/19 5:41:00 EDT, Capsule, [facility]/pharmacy #[id number], 168, cm, 12/07/19 0:26:00 EDT, Height, 84.3, kg, 12/05/19 21:27:00 EDT, Dry Weight Start Date: 12/07/19 Status: Orderedferrous sulfate 325 mg oral tablet 1 tablet = 325 mg, By Mouth, 2 times a day, # 90 tablet, 2 Refills, Maintenance, 09/16/19 9:16:00 EDT, Tablet, [facility]/pharmacy #[id number], 163, cm, 09/13/19 15:12:00 EDT, Height, 73, kg, 08/22/19 19:22:00 EDT,Dry Weight Start Date: 09/16/19 Status: Orderedibuprofen 600 mg oral tablet 600 mg, 1, tablet, By Mouth, 4 times a day, # 60 tablet, Refills 0, Tot. Refills 0, Maintenance, 12/07/19 5:41:00 EDT, Route to Pharmacy Electronically, [facility]/pharmacy #[id number], 168, cm, 12/07/19 0:26:00 EDT, Height, 84.3, kg, 12/05/19 21:27:00 EDT, Dry We... Start Date: 12/07/19 Status: OrderedPrenatal Plus Low Iron oral tablet 1 tablet, By Mouth, Daily, # 90 tablet, 1 Refills, Maintenance, 02/04/20 10:42:00 EDT, [id number], 90, TAKE 1 TABLET BY MOUTH EVERY DAY, 168, cm, 02/01/20 13:59:00 EDT, Height, 84.3, kg, 12/05/19 21:27:00 EDT, Dry Weight Start Date: 02/04/20 Status: Ordered Problem List Condition Effective Dates Status Health Status Informant Anemia(Confirmed) Active Bipolar disorder(Confirmed)1 Active Cardiac pacemaker(Confirmed)2, 3 2014 Active History of depression(Confirmed)4 Active (Confirmed) Active 1counselor at [facility] Plkaqn0tmkcpxuzldbp: Dr. GarciaOasfiigisdx3tpr severe bradycardia 4zoloft in the past Social History Social History Type Response Smoking Status Never (less than 100 in life time) entered on: 12/05/19 Sex
--- OUTSIDE RECORDS SUMMARY | 2022-07-30 04:28 | XMS_ITS | Continuity of Care Document ---
:1985 Author Organization [facility] ic Address [address] [place] [address]- Care Team Providers Name Role Phone Jake Caballero NP Primary Care Physician [facility] 11/10/20 - 12/10/[address] [address] Allergies, Adverse Reactions, Alerts Substance Reaction Severity [...] (oldterm)14 07/08/89 Given 1Result Comment: administered left ocd1Yrdet Note: exact date qjcloon9Mfjlc Note: exact date lfgdjlu1Xtzzq Note: exact date tekvsbv3Bdhjp Note: POLIO(oral) exact date thbeqdb5Kxnvs Note: POLIO(oral) exact date ejnbwry5Tnbfp Note: POLIO(oral) exact date vglklkl9Xjyea Note: POLIO(oral) exact date cbpeame7Zvnyg Note: exact date cjigrth41Bfmmc Note: exact date qyqunty67Lrygv Note: exact date akbaysy43Iihin Note: exact date hcdwlso39Buynm Note: exact date aldwoox93Ngkfy Note: exact date unknown Medications acetaminophen 325 mg oral tablet 650 mg, By Mouth, Every 4 hours, PRN, Patient should only receive a total of 650mg of Acetaminophen every 4 hours., # 30 tablet, Refills 0, Tot. Refills 0, Maintenance, Pain , Mild, 12/07/19 5:41:00 EDT, Route to Pharmacy Electronically, [facility]/pharmacy... Start Date: 12/07/19 Status: Ordereddocusate sodium 100 mg oral capsule 1 capsule = 100 mg, By Mouth, 2 times a day, # 60 capsule, 0 Refills, Maintenance, 12/07/19 5:41:00 EDT, Capsule, [facility]/pharmacy #[id number], 168, cm, 12/07/19 0:26:00 EDT, Height, 84.3, kg, 12/05/19 21:27:00 EDT, Dry Weight Start Date: 12/07/19 Status: Orderedferrous sulfate 325 mg oral tablet 1 tablet = 325 mg, By Mouth, 2 times a day, # 90 tablet, 2 Refills, Maintenance, 09/16/19 9:16:00 EDT, Tablet, [facility]/pharmacy #[id number], 163, cm, 09/13/19 15:12:00 EDT, Height, 73, kg, 08/22/19 19:22:00 EDT,Dry Weight Start Date: 09/16/19 Status: Orderedibuprofen 600 mg oral tablet 600 mg, 1, tablet, By Mouth, 4 times a day, # 60 tablet, Refills 0, Tot. Refills 0, Maintenance, 12/07/19 5:41:00 EDT, Route to Pharmacy Electronically, [facility]/pharmacy #[id number], 168, cm, 12/07/19 0:26:00 EDT, Height, 84.3, kg, 12/05/19 21:27:00 EDT, Dry We... Start Date: 12/07/19 Status: OrderedPrenatal Plus Low Iron oral tablet 1 tablet, By Mouth, Daily, # 90 tablet, 1 Refills, Maintenance, 02/04/20 10:42:00 EDT, [id number], 90, TAKE 1 TABLET BY MOUTH EVERY DAY, 168, cm, 02/01/20 13:59:00 EDT, Height, 84.3, kg, 12/05/19 21:27:00 EDT, Dry Weight Start Date: 02/04/20 Status: Ordered Problem List Condition Effective Dates Status Health Status Informant Anemia(Confirmed) Active Bipolar disorder(Confirmed)1 Active Cardiac pacemaker(Confirmed)2, 3 2014 Active History of depression(Confirmed)4 Active (Confirmed) Active 1counselor at [facility] Tyssyx9mgsdfspqadri: Dr. GarciaLurwooownpa3uzh severe bradycardia 4zoloft in the past Social History Social History Type Response Smoking Status Never (less than 100 in life time) entered on: 12/05/19 Sex
--- OUTSIDE RECORDS SUMMARY | 2022-07-30 04:28 | XMS_ITS | Continuity of Care Document ---
:1985 Author Organization [facility] ic Address [address] [place] [address]- Care Team Providers Name Role Phone Ada CANELA, Jake Nair Primary Care Physician [facility] 01/25/20 - 02/24/[address] [address]- [facility] Allergies, Adverse Reactions, Alerts Substance Reaction Severity [...] (oldterm)14 07/08/89 Given 1Result Comment: administered left lvb1Bxwsf Note: exact date sasblmz5Ojfbx Note: exact date frvrjos7Qmcuu Note: exact date jliktlo2Ikjkx Note: POLIO(oral) exact date eluapwe5Uogei Note: POLIO(oral) exact date febgwpc7Qkyah Note: POLIO(oral) exact date xzfifra6Cxnmn Note: POLIO(oral) exact date wwmltwc8Krvaq Note: exact date onkygbo34Ymues Note: exact date uurqfgi77Ilthv Note: exact date mteehpb91Omqpb Note: exact date awgkzhs00Dbyzl Note: exact date jhizxxq04Bzzjt Note: exact date unknown Medications acetaminophen 325 mg oral tablet 650 mg, By Mouth, Every 4 hours, PRN, Patient should only receive a total of 650mg of Acetaminophen every 4 hours., # 30 tablet, Refills 0, Tot. Refills 0, Maintenance, Pain , Mild, 12/07/19 5:41:00 EDT, Route to Pharmacy Electronically, [facility]/pharmacy... Start Date: 12/07/19 Status: Ordereddocusate sodium 100 mg oral capsule 1 capsule = 100 mg, By Mouth, 2 times a day, # 60 capsule, 0 Refills, Maintenance, 12/07/19 5:41:00 EDT, Capsule, [facility]/pharmacy #[id number], 168, cm, 12/07/19 0:26:00 EDT, Height, 84.3, kg, 12/05/19 21:27:00 EDT, Dry Weight Start Date: 12/07/19 Status: Orderedferrous sulfate 325 mg oral tablet 1 tablet = 325 mg, By Mouth, 2 times a day, # 90 tablet, 2 Refills, Maintenance, 09/16/19 9:16:00 EDT, Tablet, [facility]/pharmacy #[id number], 163, cm, 09/13/19 15:12:00 EDT, Height, 73, kg, 08/22/19 19:22:00 EDT,Dry Weight Start Date: 09/16/19 Status: Orderedibuprofen 600 mg oral tablet 600 mg, 1, tablet, By Mouth, 4 times a day, # 60 tablet, Refills 0, Tot. Refills 0, Maintenance, 12/07/19 5:41:00 EDT, Route to Pharmacy Electronically, [facility]/pharmacy #[id number], 168, cm, 12/07/19 0:26:00 EDT, Height, 84.3, kg, 12/05/19 21:27:00 EDT, Dry We... Start Date: 12/07/19 Status: OrderedPrenatal Plus Low Iron oral tablet 1 tablet, By Mouth, Daily, # 90 tablet, 1 Refills, Maintenance, 02/04/20 10:42:00 EDT, [facility], 90, TAKE 1 TABLET BY MOUTH EVERY DAY, 168, cm, 02/01/20 13:59:00 EDT, Height, 84.3, kg, 12/05/19 21:27:00 EDT, Dry Weight Start Date: 02/04/20 Status: Ordered Problem List Condition Effective Dates Status Health Status Informant Anemia(Confirmed) Active Bipolar disorder(Confirmed)1 Active Cardiac pacemaker(Confirmed)2, 3 2014 Active History of depression(Confirmed)4 Active (Confirmed) Active 1counselor at [facility] Jqhpdm5vqrrbxilwlsw: Dr. GarciaOylmdmihkip4niy severe bradycardia 4zoloft in the past Social History Social History Type Response Smoking Status Never (less than 100 in life time) entered on: 12/05/19 Sex
--- OUTSIDE RECORDS SUMMARY | 2022-07-30 04:28 | XMS_ITS | Continuity of Care Document ---
:1985 Author Organization [facility] ic Address [address] [place] [id number]- Care Team Providers Name Role Phone Jake Caballero NP Primary Care Physician [facility] 01/10/21 - 02/09/[address] [address] Attending Physician: Admtr, Merritt Allergies, Adverse Reactions, [...] (oldterm)14 07/08/89 Given 1Result Comment: administered left tel2Pocsl Note: exact date idemvcs8Auykr Note: exact date kmtpetf2Twizv Note: exact date hwmdcmo0Tqcio Note: POLIO(oral) exact date newghfn2Huidr Note: POLIO(oral) exact date etahnqs9Jrasc Note: POLIO(oral) exact date aczzvxl2Cvvuf Note: POLIO(oral) exact date tbxcxmh8Agvco Note: exact date nfpaknw99Fbhau Note: exact date uuajred37Uvbfl Note: exact date ticloro81Zpbqm Note: exact date pohsdcf86Tqcqy Note: exact date jfobvtr66Mxcvu Note: exact date unknown Medications acetaminophen 325 mg oral tablet 650 mg, By Mouth, Every 4 hours, PRN, Patient should only receive a total of 650mg of Acetaminophen every 4 hours., # 30 tablet, Refills 0, Tot. Refills 0, Maintenance, Pain , Mild, 12/07/19 5:41:00 EDT, Route to Pharmacy Electronically, [facility]/pharmacy... Start Date: 12/07/19 Status: Ordereddocusate sodium 100 mg oral capsule 1 capsule = 100 mg, By Mouth, 2 times a day, # 60 capsule, 0 Refills, Maintenance, 12/07/19 5:41:00 EDT, Capsule, [facility]/pharmacy #[id number], 168, cm, 12/07/19 0:26:00 EDT, Height, 84.3, kg, 12/05/19 21:27:00 EDT, Dry Weight Start Date: 12/07/19 Status: Orderedferrous sulfate 325 mg oral tablet 1 tablet = 325 mg, By Mouth, 2 times a day, # 90 tablet, 2 Refills, Maintenance, 09/16/19 9:16:00 EDT, Tablet, [facility]/pharmacy #[id number], 163, cm, 09/13/19 15:12:00 EDT, Height, 73, kg, 08/22/19 19:22:00 EDT,Dry Weight Start Date: 09/16/19 Status: Orderedibuprofen 600 mg oral tablet 600 mg, 1, tablet, By Mouth, 4 times a day, # 60 tablet, Refills 0, Tot. Refills 0, Maintenance, 12/07/19 5:41:00 EDT, Route to Pharmacy Electronically, [facility]/pharmacy #[id number], 168, cm, 12/07/19 0:26:00 EDT, Height, 84.3, kg, 12/05/19 21:27:00 EDT, Dry We... Start Date: 12/07/19 Status: OrderedPrenatal Plus Low Iron oral tablet 1 tablet, By Mouth, Daily, # 90 tablet, 1 Refills, Maintenance, 02/04/20 10:42:00 EDT, [id number], 90, TAKE 1 TABLET BY MOUTH EVERY DAY, 168, cm, 02/01/20 13:59:00 EDT, Height, 84.3, kg, 12/05/19 21:27:00 EDT, Dry Weight Start Date: 02/04/20 Status: Ordered Problem List Condition Effective Dates Status Health Status Informant Anemia(Confirmed) Active Bipolar disorder(Confirmed)1 Active Cardiac pacemaker(Confirmed)2, 3 2014 Active History of depression(Confirmed)4 Active (Confirmed) Active 1counselor at [facility] Qxdzmx4nwmvxjeyzuxq: Dr. GarciaMbpanyzmnff6mvy severe bradycardia 4zoloft in the past Procedures [...]
--- OUTSIDE RECORDS SUMMARY | 2022-07-30 04:29 | XMS_ITS | Continuity of Care Document ---
:1985 Author Organization [facility] Address [address] [place] [address]- Care Team Providers Name Role Phone Ada CANELA, Jake S Primary Care Physician [facility] 08[facility] - 09/04/[facility] [address] [place] [address]- [facility] Attending Physician: Merritt [place] Admitting Physician: Merritt [place] Referring Physician: AdmtrMerritt Allergies, Adverse Reactions, Alerts Substance Reaction Severity [...] (oldterm)14 07/08/89 Given 1Result Comment: administered left adn0Wibwc Note: exact date wbggfeq8Zmjen Note: exact date dyqeaqj8Lahzg Note: exact date ssuedze7Dmnfm Note: POLIO(oral) exact date xucgnww7Jfyso Note: POLIO(oral) exact date conqzrm2Vmefl Note: POLIO(oral) exact date ghjydln6Snvrj Note: POLIO(oral) exact date kidxpsx0Ltkgt Note: exact date bfvvuzb02Ctuam Note: exact date eozorkr52Eiexs Note: exact date kfosbxw55Fyhgf Note: exact date hdoimsd26Oeonz Note: exact date bdfokji31Zpnbk Note: exact date unknown Medications Multivitamins with Folic Acid 1 mg oral capsule See Instructions, TAKE ONE DAILY BY MOUTH, # 100 tablet, 2 Refills, Maintenance, 05/12/19 15:04:00 EST, TAKE ONE DAILY BY MOUTH Start Date: 05/12/19 Status: Ordered Problem List Condition Effective Dates Status Health Status Informant Bipolar disorder(Confirmed)1 Active Cardiac pacemaker(Confirmed)2, 3 2014 Active History of depression(Confirmed)4 Active 1counselor at [facility] Clxdsb7lgbrhzdpqpkk: Dr. GarciaLsevklnulzp3pnb severe bradycardia 4zoloft in the past Social History Social History Type Response Tobacco Use: 4 or less cigarettes(le ss than 1/4 pack)/day in last 30 days. Sex Female
--- OUTSIDE RECORDS SUMMARY | 2022-07-30 04:29 | XMS_ITS | Continuity of Care Document ---
:1985 Author Organization [facility] ic Address [address] [place] [address]- Care Team Providers Name Role Phone Ada CANELA, Jake Nair Primary Care Physician [facility] 10/27/19 - 01/08/[address] [address]- [facility] Attending Physician: Not on Staff, Attending MD [...] (oldterm)14 07/08/89 Given 1Result Comment: administered left wjk6Ieooy Note: exact date iajiktx1Tywcs Note: exact date ywcblqx6Dgkcw Note: exact date ponkiup0Uqnlm Note: POLIO(oral) exact date irccncr6Lbyno Note: POLIO(oral) exact date jvdtkdg7Nbgzy Note: POLIO(oral) exact date dajprzj4Qevhu Note: POLIO(oral) exact date jkaycxf0Idxas Note: exact date rzfyztq32Beigs Note: exact date ktzcazo30Uwhed Note: exact date ppqeuck84Welwc Note: exact date oouhhme58Uhypw Note: exact date suslyzj98Zkqcv Note: exact date unknown Medications acetaminophen 325 mg oral tablet 650 mg, By Mouth, Every 4 hours, PRN, Patient should only receive a total of 650mg of Acetaminophen every 4 hours., # 30 tablet, Refills 0, Tot. Refills 0, Maintenance, Pain , Mild, 12/07/19 5:41:00 EDT, Route to Pharmacy Electronically, [facility]/pharmacy... Start Date: 12/07/19 Status: Ordereddocusate sodium 100 mg oral capsule 1 capsule = 100 mg, By Mouth, 2 times a day, # 60 capsule, 0 Refills, Maintenance, 12/07/19 5:41:00 EDT, Capsule, [facility]/pharmacy #[id number], 168, cm, 12/07/19 0:26:00 EDT, Height, 84.3, kg, 12/05/19 21:27:00 EDT, Dry Weight Start Date: 12/07/19 Status: Orderedferrous sulfate 325 mg oral tablet 1 tablet = 325 mg, By Mouth, 2 times a day, # 90 tablet, 2 Refills, Maintenance, 09/16/19 9:16:00 EDT, Tablet, [facility]/pharmacy #[id number], 163, cm, 09/13/19 15:12:00 EDT, Height, 73, kg, 08/22/19 19:22:00 EDT,Dry Weight Start Date: 09/16/19 Status: Orderedibuprofen 600 mg oral tablet 600 mg, 1, tablet, By Mouth, 4 times a day, # 60 tablet, Refills 0, Tot. Refills 0, Maintenance, 12/07/19 5:41:00 EDT, Route to Pharmacy Electronically, [facility]/pharmacy #[id number], 168, cm, 12/07/19 0:26:00 EDT, Height, 84.3, kg, 12/05/19 21:27:00 EDT, Dry We... Start Date: 12/07/19 Status: OrderedPrenatal Multivitamins with Folic Acid 1 mg oral capsule 1 capsule, By Mouth, Daily, # 100 capsule, 0 Refills, Maintenance, 09/27/19 14:01:00 EDT, [facility], 1 capsule By Mouth Daily, 163, cm, 09/27/19 13:59:00 EDT, Height, 73, kg, 08/21/2018:22:00 EDT, Dry Weight Start Date: 09/27/19 Status: Ordered Problem List Condition Effective Dates Status Health Status Informant Anemia(Confirmed) Active Bipolar disorder(Confirmed)1 Active Cardiac pacemaker(Confirmed)2, 3 2014 Active History of depression(Confirmed)4 Active (Confirmed) Active 1counselor at [facility] Wgalcz7ympiuylcbxmu: Dr. GarciaImzlezqbplw9rvl severe bradycardia 4zoloft in the past Social History Social History Type Response Smoking Status Never (less than 100 in life time) entered on: 12/05/19 Sex
--- OUTSIDE RECORDS SUMMARY | 2022-07-30 04:29 | XMS_ITS | Continuity of Care Document ---
:1985 Author Organization [facility] ic Address [address] [place] [address]- Care Team Providers Name Role Phone Jake Caballero NP Primary Care Physician Encounter [facility] Date(s): 03/06/21 - 04/12/[address] [address] Attending Physician: Not on Staff, Attending MD [...] (oldterm)14 07/08/89 Given 1Result Comment: administered left nwe8Yogvi Note: exact date spiwjoy0Qubjb Note: exact date gprdibl1Bdnxg Note: exact date jjlsjqr6Ufmpa Note: POLIO(oral) exact date pupwojt6Qklej Note: POLIO(oral) exact date pcpozdg7Qisgu Note: POLIO(oral) exact date xitnznl4Qkybr Note: POLIO(oral) exact date agrizja4Lfdss Note: exact date vpitsme74Lcnpp Note: exact date mekqgte16Vchic Note: exact date inqjkec86Rplkj Note: exact date icfqxoc45Tsthk Note: exact date cdgxsqa49Fkhxm Note: exact date unknown Medications acetaminophen 325 mg oral tablet 650 mg, By Mouth, Every 4 hours, PRN, Patient should only receive a total of 650mg of Acetaminophen every 4 hours., # 30 tablet, Refills 0, Tot. Refills 0, Maintenance, Pain , Mild, 12/07/19 5:41:00 EDT, Route to Pharmacy Electronically, [facility]/pharmacy... Start Date: 12/07/19 Status: Ordereddocusate sodium 100 mg oral capsule 1 capsule = 100 mg, By Mouth, 2 times a day, # 60 capsule, 0 Refills, Maintenance, 12/07/19 5:41:00 EDT, Capsule, [facility]/pharmacy #[id number], 168, cm, 12/07/19 0:26:00 EDT, Height, 84.3, kg, 12/05/19 21:27:00 EDT, Dry Weight Start Date: 12/07/19 Status: Orderedferrous sulfate 325 mg oral tablet 1 tablet = 325 mg, By Mouth, 2 times a day, # 90 tablet, 2 Refills, Maintenance, 09/16/19 9:16:00 EDT, Tablet, [facility]/pharmacy #[id number], 163, cm, 09/13/19 15:12:00 EDT, Height, 73, kg, 08/22/19 19:22:00 EDT,Dry Weight Start Date: 09/16/19 Status: Orderedibuprofen 600 mg oral tablet 600 mg, 1, tablet, By Mouth, 4 times a day, # 60 tablet, Refills 0, Tot. Refills 0, Maintenance, 12/07/19 5:41:00 EDT, Route to Pharmacy Electronically, [facility]/pharmacy #[id number], 168, cm, 12/07/19 0:26:00 EDT, Height, 84.3, kg, 12/05/19 21:27:00 EDT, Dry We... Start Date: 12/07/19 Status: OrderedPrenatal Plus Low Iron oral tablet 1 tablet, By Mouth, Daily, # 90 tablet, 1 Refills, Maintenance, 02/04/20 10:42:00 EDT, [id number], 90, TAKE 1 TABLET BY MOUTH EVERY DAY, 168, cm, 02/01/20 13:59:00 EDT, Height, 84.3, kg, 12/05/19 21:27:00 EDT, Dry Weight Start Date: 02/04/20 Status: Ordered Problem List Condition Effective Dates Status Health Status Informant Anemia(Confirmed) Active Bipolar disorder(Confirmed)1 Active Cardiac pacemaker(Confirmed)2, 3 2014 Active History of depression(Confirmed)4 Active (Confirmed) Active 1counselor at [facility] Amlasf5ingusgzxxyin: Dr. 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
--- OUTSIDE RECORDS SUMMARY | 2022-07-30 04:29 | XMS_ITS | Continuity of Care Document ---
:1985 Author Organization [facility] Address [address] [place] [id number]- Care Team Providers Name Role Phone Ada CANELA, Jake Nair Primary Care Physician Encounter [facility] Date(s): 08/06/19 - 08/06/[address] [address]- [facility] Discharge Disposition: A-D/C Home Attending Physician: Natalie Balderrama MD Admitting Physician: Natalie Balderrama MD Referring Physician: Natalie Balderrama MD Allergies, Adverse Reactions, Alerts Substance Reaction [...] (oldterm)14 07/08/89 Given 1Result Comment: administered left urz6Nwvoq Note: exact date agxclzl1Xnowu Note: exact date xfpeobr1Yaepo Note: exact date vuqfoja4Cczuy Note: POLIO(oral) exact date kjvoeol8Ajrfv Note: POLIO(oral) exact date pxsybjo1Uhzyv Note: POLIO(oral) exact date blrpiiw0Oqiek Note: POLIO(oral) exact date hlzlfpn7Jewfh Note: exact date cwoosar89Ksuez Note: exact date nzpakch30Daswe Note: exact date jelpock69Wcjxc Note: exact date ghklple92Lthnk Note: exact date mvqsoqa41Rkksb Note: exact date unknown Medications Multivitamins with Folic Acid 1 mg oral capsule See Instructions, TAKE ONE DAILY BY MOUTH, # 100 tablet, 2 Refills, Maintenance, 05/12/19 15:04:00 EST, TAKE ONE DAILY BY MOUTH Start Date: 05/12/19 Status: Ordered Problem List Condition Effective Dates Status Health Status Informant Bipolar disorder(Confirmed)1 Active Cardiac pacemaker(Confirmed)2, 3 2014 Active History of depression(Confirmed)4 [facility] Dr. 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 Sex Female
--- OUTSIDE RECORDS SUMMARY | 2022-07-30 04:29 | XMS_ITS | Continuity of Care Document ---
:1985 Author Organization [facility] ic Address [address] [place] [address]- Care Team Providers Name Role Phone Jake Caballero NP Primary Care Physician Encounter [facility] Date(s): 03/20/21 - 04/20/[address] [address] Attending Physician: Omayra London CNM Admitting Physician: Omayra London CNM Allergies, Adverse Reactions, Alerts Substance Reaction Severity [...] (oldterm)14 07/08/89 Given 1Result Comment: administered left vek4Nuboh Note: exact date vbysydi3Ggmui Note: exact date sqrshuz0Pftvv Note: exact date xackyww2Kbyiv Note: POLIO(oral) exact date fwejmbl6Cxhib Note: POLIO(oral) exact date jtzeuog7Ieaor Note: POLIO(oral) exact date qelbheh3Rtrpa Note: POLIO(oral) exact date danrxcf5Undfl Note: exact date tzufrcx99Bfgsm Note: exact date wjuyhkk70Bmskd Note: exact date evipjrj07Dssup Note: exact date kfbiwtp91Gxbyl Note: exact date affahie95Pzrmx Note: exact date unknown Medications acetaminophen 325 mg oral tablet 650 mg, By Mouth, Every 4 hours, PRN, Patient should only receive a total of 650mg of Acetaminophen every 4 hours., # 30 tablet, Refills 0, Tot. Refills 0, Maintenance, Pain , Mild, 12/07/19 5:41:00 EDT, Route to Pharmacy Electronically, [facility]/pharmacy... Start Date: 12/07/19 Status: Ordereddocusate sodium 100 mg oral capsule 1 capsule = 100 mg, By Mouth, 2 times a day, # 60 capsule, 0 Refills, Maintenance, 12/07/19 5:41:00 EDT, Capsule, [facility]/pharmacy #[id number], 168, cm, 12/07/19 0:26:00 EDT, Height, 84.3, kg, 12/05/19 21:27:00 EDT, Dry Weight Start Date: 12/07/19 Status: Orderedferrous sulfate 325 mg oral tablet 1 tablet = 325 mg, By Mouth, 2 times a day, # 90 tablet, 2 Refills, Maintenance, 09/16/19 9:16:00 EDT, Tablet, [facility]/pharmacy #[id number], 163, cm, 09/13/19 15:12:00 EDT, Height, 73, kg, 08/22/19 19:22:00 EDT,Dry Weight Start Date: 09/16/19 Status: Orderedibuprofen 600 mg oral tablet 600 mg, 1, tablet, By Mouth, 4 times a day, # 60 tablet, Refills 0, Tot. Refills 0, Maintenance, 12/07/19 5:41:00 EDT, Route to Pharmacy Electronically, [facility]/pharmacy #[id number], 168, cm, 12/07/19 0:26:00 EDT, Height, 84.3, kg, 12/05/19 21:27:00 EDT, Dry We... Start Date: 12/07/19 Status: OrderedPrenatal Plus Low Iron oral tablet 1 tablet, By Mouth, Daily, # 90 tablet, 1 Refills, Maintenance, 02/04/20 10:42:00 EDT, [id number], 90, TAKE 1 TABLET BY MOUTH EVERY DAY, 168, cm, 02/01/20 13:59:00 EDT, Height, 84.3, kg, 12/05/19 21:27:00 EDT, Dry Weight Start Date: 02/04/20 Status: Ordered Problem List Condition Effective Dates Status Health Status Informant Anemia(Confirmed) Active Bipolar disorder(Confirmed)1 Active Cardiac pacemaker(Confirmed)2, 3 2014 Active History of depression(Confirmed)4 Active (Confirmed) Active 1counselor at [facility] Oagoje5pfburgydkwrq: Dr. GarciaVkkdodndlon3pad severe bradycardia 4zoloft in the past Social History Social History Type Response Smoking Status Never (less than 100 in life time) entered on: 12/05/19 Sex
--- OUTSIDE RECORDS SUMMARY | 2022-07-30 04:29 | XMS_ITS | Continuity of Care Document ---
:1985 Author Organization [facility] ic Address [address] [place] [address]- Care Team Providers Name Role Phone Jake Caballero NP Primary Care Physician Encounter [facility] Date(s): 01/04/21 - 02/09/[address] [address] Attending Physician: Not on Staff, Attending MD [...] (oldterm)14 07/08/89 Given 1Result Comment: administered left ztf0Hedcl Note: exact date zqvfzdg4Ibakf Note: exact date ltentsm2Slwcc Note: exact date uvlegge2Drfha Note: POLIO(oral) exact date tijnufh2Jeync Note: POLIO(oral) exact date yuslwxv4Udhjm Note: POLIO(oral) exact date hxdgxbo7Oelgh Note: POLIO(oral) exact date kfwfpfb2Oewmc Note: exact date mnetdiq76Srxmq Note: exact date kjfvnsq97Waxng Note: exact date gltlsey93Sqgvt Note: exact date kwwbeeb70Ftxly Note: exact date cylgmne61Brhjd Note: exact date unknown Medications acetaminophen 325 [...] Refills, Maintenance, 02/04/20 10:42:00 EDT, [id number], 90, TAKE 1 TABLET BY MOUTH EVERY DAY, 168, cm, 02/01/20 13:59:00 EDT, Height, 84.3, kg, 12/05/19 21:27:00 EDT, Dry Weight Start Date: 02/04/20 Status: Ordered Problem List Condition Effective Dates Status Health Status Informant Anemia(Confirmed) Active Bipolar disorder(Confirmed)1 Active Cardiac pacemaker(Confirmed)2, 3 2014 Active History of depression(Confirmed)4 Active (Confirmed) Active 1counselor at [facility] Fohtzj7uvgkykuinfzk: Dr. GarciaCubqgwukjkf3emz severe bradycardia 4zoloft in the past Social History Social History Type Response Smoking Status Never (less than 100 in life time) entered on: 12/05/19 Sex
--- OUTSIDE RECORDS SUMMARY | 2022-07-30 04:29 | XMS_ITS | Continuity of Care Document ---
:1985 Author Organization [facility] ic Address [address] [place] [address]- Care Team Providers Name Role Phone Ada CANELA, Jake Nair Primary Care Physician Encounter [facility] Date(s): 01/26/20 - 02/26/[address] [address]- [facility] Attending Physician: Not on Staff, Attending MD [...] (oldterm)14 07/08/89 Given 1Result Comment: administered left vls2Iuxcs Note: exact date mqvrtse5Wyoji Note: exact date edtaiem1Mutdc Note: exact date zaqbnpf1Ttyhw Note: POLIO(oral) exact date ahywejo6Scnws Note: POLIO(oral) exact date ramoqfj4Wjgdx Note: POLIO(oral) exact date apidmii7Gcaeu Note: POLIO(oral) exact date hpjxbud0Lkhdk Note: exact date iyecyrm37Jnyjy Note: exact date ibhurgn11Xbtpx Note: exact date bfafjmz05Inzxv Note: exact date mxvzyep81Fgsbc Note: exact date emromur95Qjujj Note: exact date unknown Medications acetaminophen 325 mg oral tablet 650 mg, By Mouth, Every 4 hours, PRN, Patient should only receive a total of 650mg of Acetaminophen every 4 hours., # 30 tablet, Refills 0, Tot. Refills 0, Maintenance, Pain , Mild, 12/07/19 5:41:00 EDT, Route to Pharmacy Electronically, [facility]/pharmacy... Start Date: 12/07/19 Status: Ordereddocusate sodium 100 mg oral capsule 1 capsule = 100 mg, By Mouth, 2 times a day, # 60 capsule, 0 Refills, Maintenance, 12/07/19 5:41:00 EDT, Capsule, [facility]/pharmacy #[id number], 168, cm, 12/07/19 0:26:00 EDT, Height, 84.3, kg, 12/05/19 21:27:00 EDT, Dry Weight Start Date: 12/07/19 Status: Orderedferrous sulfate 325 mg oral tablet 1 tablet = 325 mg, By Mouth, 2 times a day, # 90 tablet, 2 Refills, Maintenance, 09/16/19 9:16:00 EDT, Tablet, [facility]/pharmacy #[id number], 163, cm, 09/13/19 15:12:00 EDT, Height, 73, kg, 08/22/19 19:22:00 EDT,Dry Weight Start Date: 09/16/19 Status: Orderedibuprofen 600 mg oral tablet 600 mg, 1, tablet, By Mouth, 4 times a day, # 60 tablet, Refills 0, Tot. Refills 0, Maintenance, 12/07/19 5:41:00 EDT, Route to Pharmacy Electronically, [facility]/pharmacy #[id number], 168, cm, 12/07/19 0:26:00 EDT, Height, 84.3, kg, 12/05/19 21:27:00 EDT, Dry We... Start Date: 12/07/19 Status: OrderedPrenatal Plus Low Iron oral tablet 1 tablet, By Mouth, Daily, # 90 tablet, 1 Refills, Maintenance, 02/04/20 10:42:00 EDT, [facility], 90, TAKE 1 TABLET BY MOUTH EVERY DAY, 168, cm, 02/01/20 13:59:00 EDT, Height, 84.3, kg, 12/05/19 21:27:00 EDT, Dry Weight Start Date: 02/04/20 Status: Ordered Problem List Condition Effective Dates Status Health Status Informant Anemia(Confirmed) Active Bipolar disorder(Confirmed)1 Active Cardiac pacemaker(Confirmed)2, 3 2014 Active History of depression(Confirmed)4 Active (Confirmed) Active 1counselor at [facility] Dqwass5cljzgkloxtgo: Dr. GarciaOzvttmpwbwk5rvf severe bradycardia 4zoloft in the past Social History Social History Type Response Smoking Status Never (less than 100 in life time) entered on: 12/05/19 Sex
--- OUTSIDE RECORDS SUMMARY | 2022-07-30 04:29 | XMS_ITS | Continuity of Care Document ---
:1985 Author Organization [facility] ic Address [address] [place] [address]- Care Team Providers Name Role Phone Ada CANELA, Jake Nair Primary Care Physician Encounter [facility] Date(s): 02/10/20 - 03/11/[address] [address] [facility] Attending Physician: Admtr, [place] Allergies, Adverse Reactions, [...] (oldterm)14 07/08/89 Given 1Result Comment: administered left mqt2Munzt Note: exact date tkoojpx5Lrokt Note: exact date dchinkl7Iawla Note: exact date jpydqlg7Rzzmq Note: POLIO(oral) exact date tsvzlbz0Txmus Note: POLIO(oral) exact date ovqdwhc8Bgxws Note: POLIO(oral) exact date qmfevaq2Xgxpz Note: POLIO(oral) exact date gyxqeih4Vpoau Note: exact date blnaqjc43Hggdd Note: exact date kwrfdio73Rdlmy Note: exact date jeokbnb88Pmxsl Note: exact date lpgzgad50Wyzcf Note: exact date pndaqlu54Pqhng Note: exact date unknown Medications acetaminophen 325 mg oral tablet 650 mg, By Mouth, Every 4 hours, PRN, Patient should only receive a total of 650mg of Acetaminophen every 4 hours., # 30 tablet, Refills 0, Tot. Refills 0, Maintenance, Pain , Mild, 12/07/19 5:41:00 EDT, Route to Pharmacy Electronically, [facility]/pharmacy... Start Date: 12/07/19 Status: Ordereddocusate sodium 100 mg oral capsule 1 capsule = 100 mg, By Mouth, 2 times a day, # 60 capsule, 0 Refills, Maintenance, 12/07/19 5:41:00 EDT, Capsule, [facility]/pharmacy #[id number], 168, cm, 12/07/19 0:26:00 EDT, Height, 84.3, kg, 12/05/19 21:27:00 EDT, Dry Weight Start Date: 12/07/19 Status: Orderedferrous sulfate 325 mg oral tablet 1 tablet = 325 mg, By Mouth, 2 times a day, # 90 tablet, 2 Refills, Maintenance, 09/16/19 9:16:00 EDT, Tablet, [facility]/pharmacy #[id number], 163, cm, 09/13/19 15:12:00 EDT, Height, 73, kg, 08/22/19 19:22:00 EDT,Dry Weight Start Date: 09/16/19 Status: Orderedibuprofen 600 mg oral tablet 600 mg, 1, tablet, By Mouth, 4 times a day, # 60 tablet, Refills 0, Tot. Refills 0, Maintenance, 12/07/19 5:41:00 EDT, [id number], 168, cm, 12/07/19 0:26:00 EDT, Height, 84.3, kg, 12/05/19 21:27:00 EDT, Dry We... Start Date: 12/07/19 Status: OrderedPrenatal Plus Low Iron oral tablet 1 tablet, By Mouth, Daily, # 90 tablet, 1 Refills, Maintenance, 02/04/20 10:42:00 EDT, [facility], 90, TAKE 1 TABLET BY MOUTH EVERY DAY, 168, cm, 02/01/20 13:59:00 EDT, Height, 84.3, kg, 12/05/19 21:27:00 EDT, Dry Weight Start Date: 02/04/20 Status: Ordered Problem List Condition Effective Dates Status Health Status Informant Anemia(Confirmed) Active Bipolar disorder(Confirmed)1 Active Cardiac pacemaker(Confirmed)2, 3 2014 Active History of depression(Confirmed)4 Active (Confirmed) Active 1counselor at [facility] Nceaix8aqoofmwcuzgh: Dr. GarciaRuswzffjrdr0uxx severe bradycardia 4zoloft in the past Procedures [...]
--- OUTSIDE RECORDS SUMMARY | 2022-07-30 04:29 | XMS_ITS | Continuity of Care Document ---
:1985 Author Organization [facility] ic Address [address] [place] [address]- Care Team Providers Name Role Phone Jake Caballero NP Primary Care Physician Encounter [facility] Date(s): 09/27/19 - 10/04/[address] [address]- [facility] Attending Physician: Juany Kenyon MD Referring Physician: Jake Caballero NP Allergies, Adverse Reactions, Alerts Substance Reaction Severity [...] (oldterm)14 07/08/89 Given 1Result Comment: administered left fjh8Aiatk Note: exact date cvvxplb9Zoasf Note: exact date mfbnwpe9Mcsbo Note: exact date ountzpa5Knwmr Note: POLIO(oral) exact date fdnftiv4Ypyhf Note: POLIO(oral) exact date aydcocp9Nrdhd Note: POLIO(oral) exact date xztdsrl6Bjzha Note: POLIO(oral) exact date eofdpbo9Uxgbg Note: exact date otihvsk74Uskqw Note: exact date xuxrsjh09Vonfq Note: exact date tnmofzo08Mpznk Note: exact date aypayfm90Pietk Note: exact date faemyvs35Kkxis Note: exact date unknown Medications docusate-senna 50 mg-187 mg oral tablet 1 tablet, By Mouth, Daily at bedtime, # 60 tablet, 0 Refills, Maintenance, 09/16/19 9:16:00 EDT, [facility], [id number], 1 tablet By Mouth Daily at bedtime, 163, cm, 09/13/19 15:12:00 EDT, Height, 73, kg, 08/22/19 19:22:00 EDT, Dry Weight Start Date: 09/16/19 Status: Orderedferrous sulfate 325 mg oral tablet 1 tablet = 325 mg, By Mouth, 2 times a day, # 90 tablet, 2 Refills, Maintenance, 09/16/19 9:16:00 EDT, [facility], [id number], 163, cm, 09/13/19 15:12:00 EDT, Height, 73, kg, 08/22/19 19:22:00 EDT,Dry Weight Start Date: 09/16/19 Status: OrderedPrenatal Multivitamins with Folic Acid 1 mg oral capsule 1 capsule, By Mouth, Daily, # 100 capsule, 0 Refills, Maintenance, 09/27/19 14:01:00 EDT, [facility], [id number], 1 capsule By Mouth Daily, 163, cm, 09/27/19 13:59:00 EDT, Height, 73, kg, 08/21/2018:22:00 EDT, Dry Weight Start Date: 09/27/19 Status: OrderedPrenatal Multivitamins with Folic Acid 1 mg oral capsule See Instructions, TAKE ONE DAILY BY MOUTH, # 100 tablet, 2 Refills, Maintenance, 05/12/19 15:04:00 EST, TAKE ONE DAILY BY MOUTH Start Date: 05/12/19 Status: Ordered Problem List Condition Effective Dates Status Health Status Informant Anemia(Confirmed) Active Bipolar disorder(Confirmed)1 Active Cardiac pacemaker(Confirmed)2, 3 2014 Active History of depression(Confirmed)4 Active 1counselor at [facility] Zmybyn5gtairlkzjrvw: Dr. GarciaJtztbyqsyuo8wbm severe bradycardia 4zoloft in the past Vital Signs Most recent to oldest [Reference Range]: 1 Height 163 cm (09/27/19 1:59 PM) Social History Social History Type Response Tobacco Use: 4 or less cigarettes(le ss than 1/4 pack)/day in last 30 days. Sex Female
--- OUTSIDE RECORDS SUMMARY | 2022-07-30 04:29 | XMS_ITS | Continuity of Care Document ---
:1985 Author Organization [facility] ic Address [address] [place] [address]- Care Team Providers Name Role Phone Jake Caballero NP Primary Care Physician Encounter [facility] Date(s): 11/22/20 - 12/22/[address] [address] Attending Physician: Admtr, [place] Allergies, Adverse [...] (oldterm)14 07/08/89 Given 1Result Comment: administered left nge7Mfuts Note: exact date aohdcfj8Liwaa Note: exact date sdiufik0Yoxpa Note: exact date fhzgiee0Dmylg Note: POLIO(oral) exact date mirfcpp5Hxepf Note: POLIO(oral) exact date zcsdvqi6Ivveu Note: POLIO(oral) exact date rmwbzxo4Dujwr Note: POLIO(oral) exact date vqmuymu3Zfyuq Note: exact date nlpjqdp79Ijnrb Note: exact date vxtnwce53Gqlyz Note: exact date jvknary52Ncres Note: exact date grrzwfk52Ulqnn Note: exact date ubvhbcj31Zqacn Note: exact date unknown Medications acetaminophen 325 mg oral tablet 650 mg, By Mouth, Every 4 hours, PRN, Patient should only receive a total of 650mg of Acetaminophen every 4 hours., # 30 tablet, Refills 0, Tot. Refills 0, Maintenance, Pain , Mild, 12/07/19 5:41:00 EDT, Route to Pharmacy Electronically, [facility]/pharmacy... Start Date: 12/07/19 Status: Ordereddocusate sodium 100 mg oral capsule 1 capsule = 100 mg, By Mouth, 2 times a day, # 60 capsule, 0 Refills, Maintenance, 12/07/19 5:41:00 EDT, Capsule, [facility]/pharmacy #[id number], 168, cm, 12/07/19 0:26:00 EDT, Height, 84.3, kg, 12/05/19 21:27:00 EDT, Dry Weight Start Date: 12/07/19 Status: Orderedferrous sulfate 325 mg oral tablet 1 tablet = 325 mg, By Mouth, 2 times a day, # 90 tablet, 2 Refills, Maintenance, 09/16/19 9:16:00 EDT, Tablet, [facility]/pharmacy #[id number], 163, cm, 09/13/19 15:12:00 EDT, Height, 73, kg, 08/22/19 19:22:00 EDT,Dry Weight Start Date: 09/16/19 Status: Orderedibuprofen 600 mg oral tablet 600 mg, 1, tablet, By Mouth, 4 times a day, # 60 tablet, Refills 0, Tot. Refills 0, Maintenance, 12/07/19 5:41:00 EDT, Route to Pharmacy Electronically, [facility]/pharmacy #[id number], 168, cm, 12/07/19 0:26:00 EDT, Height, 84.3, kg, 12/05/19 21:27:00 EDT, Dry We... Start Date: 12/07/19 Status: OrderedPrenatal Plus Low Iron oral tablet 1 tablet, By Mouth, Daily, # 90 tablet, 1 Refills, Maintenance, 02/04/20 10:42:00 EDT, [facility], 90, TAKE 1 TABLET BY MOUTH EVERY DAY, 168, cm, 02/01/20 13:59:00 EDT, Height, 84.3, kg, 12/05/19 21:27:00 EDT, Dry Weight Start Date: 02/04/20 Status: Ordered Problem List Condition Effective Dates Status Health Status Informant Anemia(Confirmed) Active Bipolar disorder(Confirmed)1 Active Cardiac pacemaker(Confirmed)2, 3 2014 Active History of depression(Confirmed)4 Active (Confirmed) Active 1counselor at [facility] Nntxou0jkguvebbysji: Dr. GarciaUhwokmuwxps7zbl severe bradycardia 4zoloft in the past Procedures [...]
--- OUTSIDE RECORDS SUMMARY | 2022-07-30 04:29 | XMS_ITS | Continuity of Care Document ---
:1985 Author Organization [facility] ic Address [address] [place] [id number]- Care Team Providers Name Role Phone Jake Caballero NP Primary Care Physician [facility] Date[facility]s): 10/27/19 - 12/18/[address] [address]- [facility] Attending Physician: Not on Staff, [...] (oldterm)14 07/08/89 Given 1Result Comment: administered left wul9Weaas Note: exact date uqxfnfg5Nicsh Note: exact date mppryqi3Xjmsl Note: exact date guxcvfb0Fgnkn Note: POLIO(oral) exact date uvkyimy0Zrbov Note: POLIO(oral) exact date hsuqylx1Cqfsf Note: POLIO(oral) exact date pippvfn6Pfbkl Note: POLIO(oral) exact date wdxgszj7Xvliv Note: exact date hpnczuh99Awtcg Note: exact date nisiseb39Qynke Note: exact date rqocnmd08Kbooe Note: exact date wipdakj97Hxdhm Note: exact date rkzbrbn10Fdzxb Note: exact date unknown Medications acetaminophen 325 mg oral tablet 650 mg, By Mouth, Every 4 hours, PRN, Patient should only receive a total of 650mg of Acetaminophen every 4 hours., # 30 tablet, Refills 0, Tot. Refills 0, Maintenance, Pain , Mild, 12/07/19 5:41:00 EDT, Route to Pharmacy Electronically, [facility]/pharmacy... Start Date: 12/07/19 Status: Ordereddocusate sodium 100 mg oral capsule 1 capsule = 100 mg, By Mouth, 2 times a day, # 60 capsule, 0 Refills, Maintenance, 12/07/19 5:41:00 EDT, Capsule, [facility]/pharmacy #[id number], 168, cm, 12/07/19 0:26:00 EDT, Height, 84.3, kg, 12/05/19 21:27:00 EDT, Dry Weight Start Date: 12/07/19 Status: Orderedferrous sulfate 325 mg oral tablet 1 tablet = 325 mg, By Mouth, 2 times a day, # 90 tablet, 2 Refills, Maintenance, 09/16/19 9:16:00 EDT, Tablet, [facility]/pharmacy #[id number], 163, cm, 09/13/19 15:12:00 EDT, Height, 73, kg, 08/22/19 19:22:00 EDT,Dry Weight Start Date: 09/16/19 Status: Orderedibuprofen 600 mg oral tablet 600 mg, 1, tablet, By Mouth, 4 times a day, # 60 tablet, Refills 0, Tot. Refills 0, Maintenance, 12/07/19 5:41:00 EDT, Route to Pharmacy Electronically, [facility]/pharmacy #[id number], 168, cm, 12/07/19 0:26:00 EDT, Height, 84.3, kg, 12/05/19 21:27:00 EDT, Dry We... Start Date: 12/07/19 Status: OrderedPrenatal Multivitamins with Folic Acid 1 mg oral capsule 1 capsule, By Mouth, Daily, # 100 capsule, 0 Refills, Maintenance, 09/27/19 14:01:00 EDT, Capsule, [facility]/pharmacy #[id number], 1 capsule By Mouth Daily, 163, cm, 09/27/19 13:59:00 EDT, Height, 73, kg, 08/21/2018:22:00 EDT, Dry Weight Start Date: 09/27/19 Status: Ordered Problem List Condition Effective Dates Status Health Status Informant Anemia(Confirmed) Active Bipolar disorder(Confirmed)1 Active Cardiac pacemaker(Confirmed)2, 3 2014 Active History of depression(Confirmed)4 Active (Confirmed) Active 1counselor at [facility] Snlysq8chmwgecwlbnw: Dr. 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
--- OUTSIDE RECORDS SUMMARY | 2022-07-30 04:29 | XMS_ITS | Continuity of Care Document ---
:1985 Author Organization [facility] ic Address [address] [place] [phone]- Care Team Providers Name Role Phone Jake Caballero NP Primary Care Physician Encounter [facility] Date(s): 03/15/21 - 05/04/[address] [address] Attending Physician: Not on Staff, Attending MD [...] (oldterm)14 07/08/89 Given 1Result Comment: administered left kfe7Onlco Note: exact date uzplcjm3Swhql Note: exact date dtrnguz5Ttuhz Note: exact date ekbvper9Wrgwr Note: POLIO(oral) exact date horzqpy7Iyupg Note: POLIO(oral) exact date ejjncvr6Umgow Note: POLIO(oral) exact date pnwaqkp4Igghj Note: POLIO(oral) exact date oorbjcz6Amxmq Note: exact date ngcqedu54Yehkg Note: exact date nezzkwv99Wxffw Note: exact date btjmapu83Hzlnj Note: exact date bfhsbjn54Vxqcq Note: exact date bdmirbb44Btzky Note: exact date unknown Medications acetaminophen 325 mg oral tablet 650 mg, By Mouth, Every 4 hours, PRN, Patient should only receive a total of 650mg of Acetaminophen every 4 hours., # 30 tablet, Refills 0, Tot. Refills 0, Maintenance, Pain , Mild, 12/07/19 5:41:00 EDT, Route to Pharmacy Electronically, [facility]/pharmacy... Start Date: 12/07/19 Status: Ordereddocusate sodium 100 mg oral capsule 1 capsule = 100 mg, By Mouth, 2 times a day, # 60 capsule, 0 Refills, Maintenance, 12/07/19 5:41:00 EDT, Capsule, [facility]/pharmacy #[id number], 168, cm, 12/07/19 0:26:00 EDT, Height, 84.3, kg, 12/05/19 21:27:00 EDT, Dry Weight Start Date: 12/07/19 Status: Orderedferrous sulfate 325 mg oral tablet 1 tablet = 325 mg, By Mouth, 2 times a day, # 90 tablet, 2 Refills, Maintenance, 09/16/19 9:16:00 EDT, Tablet, [facility]/pharmacy #[id number], 163, cm, 09/13/19 15:12:00 EDT, Height, 73, kg, 08/22/19 19:22:00 EDT,Dry Weight Start Date: 09/16/19 Status: Orderedibuprofen 600 mg oral tablet 600 mg, 1, tablet, By Mouth, 4 times a day, # 60 tablet, Refills 0, Tot. Refills 0, Maintenance, 12/07/19 5:41:00 EDT, Route to Pharmacy Electronically, [facility]/pharmacy #[id number], 168, cm, 12/07/19 0:26:00 EDT, Height, 84.3, kg, 12/05/19 21:27:00 EDT, Dry We... Start Date: 12/07/19 Status: OrderedPrenatal Plus Low Iron oral tablet 1 tablet, By Mouth, Daily, # 90 tablet, 1 Refills, Maintenance, 02/04/20 10:42:00 EDT, [id number], 90, TAKE 1 TABLET BY MOUTH EVERY DAY, 168, cm, 02/01/20 13:59:00 EDT, Height, 84.3, kg, 12/05/19 21:27:00 EDT, Dry Weight Start Date: 02/04/20 Status: Ordered Problem List Condition Effective Dates Status Health Status Informant Anemia(Confirmed) Active Bipolar disorder(Confirmed)1 Active Cardiac pacemaker(Confirmed)2, 3 2014 Active History of depression(Confirmed)4 Active (Confirmed) Active 1counselor at [facility] Qzyozg9vlvxmzkihfcc: Dr. 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
--- OUTSIDE RECORDS SUMMARY | 2022-07-30 04:29 | XMS_ITS | Continuity of Care Document ---
:1985 Author Organization [facility] ic Address [address] [place] [address]- Care Team Providers Name Role Phone Ada CANELA, Jake Nair Primary Care Physician [facility] 12[facility]07[facility]19 - 01/20/[address] [address]- [facility] Attending Physician: Not on Staff, Attending [...] (oldterm)14 07/08/89 Given 1Result Comment: administered left ven6Synht Note: exact date ywaabmr6Jqcqt Note: exact date llyvwkm1Omznj Note: exact date qewuzsf2Rtcfr Note: POLIO(oral) exact date bejcuzm9Qbuwk Note: POLIO(oral) exact date uxgkatk2Vitcr Note: POLIO(oral) exact date djnmztr5Gcnbf Note: POLIO(oral) exact date qsaudyz8Xldvm Note: exact date wnbdnxa89Veowx Note: exact date imwqsvh15Anrxb Note: exact date ymjoswy34Pvmqk Note: exact date garpugp36Zlebo Note: exact date bkijaqx12Swyon Note: exact date unknown Medications acetaminophen 325 mg oral tablet 650 mg, By Mouth, Every 4 hours, PRN, Patient should only receive a total of 650mg of Acetaminophen every 4 hours., # 30 tablet, Refills 0, Tot. Refills 0, Maintenance, Pain , Mild, 12/07/19 5:41:00 EDT, Route to Pharmacy Electronically, [facility]/pharmacy... Start Date: 12/07/19 Status: Ordereddocusate sodium 100 mg oral capsule 1 capsule = 100 mg, By Mouth, 2 times a day, # 60 capsule, 0 Refills, Maintenance, 12/07/19 5:41:00 EDT, Capsule, [facility]/pharmacy #[id number], 168, cm, 12/07/19 0:26:00 EDT, Height, 84.3, kg, 12/05/19 21:27:00 EDT, Dry Weight Start Date: 12/07/19 Status: Orderedferrous sulfate 325 mg oral tablet 1 tablet = 325 mg, By Mouth, 2 times a day, # 90 tablet, 2 Refills, Maintenance, 09/16/19 9:16:00 EDT, Tablet, [facility]/pharmacy #[id number], 163, cm, 09/13/19 15:12:00 EDT, Height, 73, kg, 08/22/19 19:22:00 EDT,Dry Weight Start Date: 09/16/19 Status: Orderedibuprofen 600 mg oral tablet 600 mg, 1, tablet, By Mouth, 4 times a day, # 60 tablet, Refills 0, Tot. Refills 0, Maintenance, 12/07/19 5:41:00 EDT, Route to Pharmacy Electronically, [facility]/pharmacy #[id number], 168, cm, 12/07/19 0:26:00 [...] depression(Confirmed)4 Active (Confirmed) Active 1counselor at Living Tbtsyg5bfuqvokucwzm: Dr. GarciaRwiktvincpc3cet severe bradycardia 4zoloft in the past Social History Social History Type Response Smoking Status Never (less than 100 in life time) entered on: 12/05/19 Sex
--- OUTSIDE RECORDS SUMMARY | 2022-07-30 04:29 | XMS_ITS | Continuity of Care Document ---
:1985 Author Organization [facility] ic Address [address] [place] [address]- Care Team Providers Name Role Phone Jake Caballero NP Primary Care Physician [facility] Date[facility]s): 03/20/21 - 04/19/[address] [id number] Allergies, Adverse Reactions, Alerts Substance Reaction [...] (oldterm)14 07/08/89 Given 1Result Comment: administered left ktv1Uytwk Note: exact date worjofj2Vxanq Note: exact date rcmaohg2Vvpgy Note: exact date ertsylb3Ycnxw Note: POLIO(oral) exact date sztwiak9Jhlzt Note: POLIO(oral) exact date aqkmyjx4Pebfi Note: POLIO(oral) exact date rproiay4Lotqq Note: POLIO(oral) exact date swpqnbw3Vjvly Note: exact date bpxvese60Ulxdm Note: exact date lupdwlp92Ruglo Note: exact date gslqrgx48Apmfu Note: exact date zepsuil64Qvhqu Note: exact date tjkrvcp35Qthyp Note: exact date unknown Medications acetaminophen 325 mg oral tablet 650 mg, By Mouth, Every 4 hours, PRN, Patient should only receive a total of 650mg of Acetaminophen every 4 hours., # 30 tablet, Refills 0, Tot. Refills 0, Maintenance, Pain , Mild, 12/07/19 5:41:00 EDT, Route to Pharmacy Electronically, [facility]/pharmacy... Start Date: 12/07/19 Status: Ordereddocusate sodium 100 mg oral capsule 1 capsule = 100 mg, By Mouth, 2 times a day, # 60 capsule, 0 Refills, Maintenance, 12/07/19 5:41:00 EDT, Capsule, [facility]/pharmacy #[id number], 168, cm, 12/07/19 0:26:00 EDT, Height, 84.3, kg, 12/05/19 21:27:00 EDT, Dry Weight Start Date: 12/07/19 Status: Orderedferrous sulfate 325 mg oral tablet 1 tablet = 325 mg, By Mouth, 2 times a day, # 90 tablet, 2 Refills, Maintenance, 09/16/19 9:16:00 EDT, Tablet, [facility]/pharmacy #[id number], 163, cm, 09/13/19 15:12:00 EDT, Height, 73, kg, 08/22/19 19:22:00 EDT,Dry Weight Start Date: 09/16/19 Status: Orderedibuprofen 600 mg oral tablet 600 mg, 1, tablet, By Mouth, 4 times a day, # 60 tablet, Refills 0, Tot. Refills 0, Maintenance, 12/07/19 5:41:00 EDT, Route to Pharmacy Electronically, [facility]/pharmacy #[id number], 168, cm, 12/07/19 0:26:00 EDT, Height, 84.3, kg, 12/05/19 21:27:00 EDT, Dry We... Start Date: 12/07/19 Status: OrderedPrenatal Plus Low Iron oral tablet 1 tablet, By Mouth, Daily, # 90 tablet, 1 Refills, Maintenance, 02/04/20 10:42:00 EDT, [id number], 90, TAKE 1 TABLET BY MOUTH EVERY DAY, 168, cm, 02/01/20 13:59:00 EDT, Height, 84.3, kg, 12/05/19 21:27:00 EDT, Dry Weight Start Date: 02/04/20 Status: Ordered Problem List Condition Effective Dates Status Health Status Informant Anemia(Confirmed) Active Bipolar disorder(Confirmed)1 Active Cardiac pacemaker(Confirmed)2, 3 2014 Active History of depression(Confirmed)4 Active (Confirmed) Active 1counselor at [facility] Rjuwez5xfvqdidxilql: Dr. GarciaMesnsckanrg9bhr severe bradycardia 4zoloft in the past Social History Social History Type Response Smoking Status Never (less than 100 in life time) entered on: 12/05/19 Sex
--- OUTSIDE RECORDS SUMMARY | 2022-07-30 04:29 | XMS_ITS | Continuity of Care Document ---
:1985 Author Organization [facility] Address [address] [place] [address]- Care Team Providers Name Role Phone Jake Caballero NP Primary Care Physician [facility]): 09/27/19 - 09/27/[address] [address]- [facility] Discharge Disposition: A-D/C Home Attending Physician: Erika Reveles DO Admitting Physician: Erika Reveles DO Referring Physician: Erika Reveles DO Allergies, Adverse Reactions, Alerts Substance Reaction [...] (oldterm)14 07/08/89 Given 1Result Comment: administered left zqc6Eptdx Note: exact date myzxfgc7Bhleg Note: exact date rffnjgj1Etyvj Note: exact date zvkdidk8Kimub Note: POLIO(oral) exact date ociecti8Huoyj Note: POLIO(oral) exact date mycxuqj0Hxfmx Note: POLIO(oral) exact date ppwvvjg8Paukr Note: POLIO(oral) exact date tnurucy3Dpfcl Note: exact date fezvmls02Kqhah Note: exact date wdzuhyb84Nqhay Note: exact date gghnqxk52Hqmnv Note: exact date jgexpfy60Ffwsu Note: exact date xoobvqe07Avmei Note: exact date unknown Medications docusate-senna 50 [...] History of depression(Confirmed)4 Active 1counselor at [facility] Jmtxti9kmfdirwzhyrj: Dr. GarciaSdyjirjbbco4ghv severe bradycardia 4zoloft in the past Social History Social History Type Response Tobacco Use: 4 or less cigarettes(le ss than 1/4 pack)/day in last 30 days. Sex Female
--- OUTSIDE RECORDS SUMMARY | 2022-07-30 04:29 | XMS_ITS | Continuity of Care Document ---
:1985 Author Organization [facility] ic Address [address] [place] [phone]- Care Team Providers Name Role Phone Jake Caballero NP Primary Care Physician [facility] 11/13/20 - 12/14/[address] [address] Attending Physician: Not on [...] (oldterm)14 07/08/89 Given 1Result Comment: administered left hxb2Khbia Note: exact date rcuczpq8Rdhif Note: exact date voibyqo3Fkber Note: exact date qwttyhk6Gucdu Note: POLIO(oral) exact date dbtkstp1Idxrp Note: POLIO(oral) exact date zfnjsyd4Lxuwg Note: POLIO(oral) exact date nfwpgpv0Oafrv Note: POLIO(oral) exact date ozgyvvl7Jryrj Note: exact date sbjsozj09Xhkxj Note: exact date rpupman43Bygyv Note: exact date wzpylcg69Mkehz Note: exact date guwirgj37Vddec Note: exact date evkirey36Vmzch Note: exact date unknown Medications acetaminophen 325 mg oral tablet 650 mg, By Mouth, Every 4 hours, PRN, Patient should only receive a total of 650mg of Acetaminophen every 4 hours., # 30 tablet, Refills 0, Tot. Refills 0, Maintenance, Pain , Mild, 12/07/19 5:41:00 EDT, Route to Pharmacy Electronically, [facility]/pharmacy... Start Date: 12/07/19 Status: Ordereddocusate sodium 100 mg oral capsule 1 capsule = 100 mg, By Mouth, 2 times a day, # 60 capsule, 0 Refills, Maintenance, 12/07/19 5:41:00 EDT, Capsule, [facility]/pharmacy #[id number], 168, cm, 12/07/19 0:26:00 EDT, Height, 84.3, kg, 12/05/19 21:27:00 EDT, Dry Weight Start Date: 12/07/19 Status: Orderedferrous sulfate 325 mg oral tablet 1 tablet = 325 mg, By Mouth, 2 times a day, # 90 tablet, 2 Refills, Maintenance, 09/16/19 9:16:00 EDT, Tablet, [facility]/pharmacy #[id number], 163, cm, 09/13/19 15:12:00 EDT, Height, 73, kg, 08/22/19 19:22:00 EDT,Dry Weight Start Date: 09/16/19 Status: Orderedibuprofen 600 mg oral tablet 600 mg, 1, tablet, By Mouth, 4 times a day, # 60 tablet, Refills 0, Tot. Refills 0, Maintenance, 12/07/19 5:41:00 EDT, Route to Pharmacy Electronically, [facility]/pharmacy #[id number], 168, cm, 12/07/19 0:26:00 EDT, Height, 84.3, kg, 12/05/19 21:27:00 EDT, Dry We... Start Date: 12/07/19 Status: OrderedPrenatal Plus Low Iron oral tablet 1 tablet, By Mouth, Daily, # 90 tablet, 1 Refills, Maintenance, 02/04/20 10:42:00 EDT, [facility], 90, TAKE 1 TABLET BY MOUTH EVERY DAY, 168, cm, 02/01/20 13:59:00 EDT, Height, 84.3, kg, 12/05/19 21:27:00 EDT, Dry Weight Start Date: 02/04/20 Status: Ordered Problem List Condition Effective Dates Status Health Status Informant Anemia(Confirmed) Active Bipolar disorder(Confirmed)1 Active Cardiac pacemaker(Confirmed)2, 3 2014 Active History of depression(Confirmed)4 Active (Confirmed) Active 1counselor at Living Olqzet2phemslcfeeio: Dr. GarciaMmpvjvsusrb4nua severe bradycardia 4zoloft in the past Social History Social History Type Response Smoking Status Never (less than 100 in life time) entered on: 12/05/19 Sex
--- OUTSIDE RECORDS SUMMARY | 2022-07-30 04:29 | XMS_ITS | Continuity of Care Document ---
:1985 Author Organization [facility] Address [address] [place] [address]- Care Team Providers Name Role Phone Jake Caballero NP Primary Care Physician [facility]): 05/11/19 - 05/21/[address] [address]- [facility] Attending Physician: AdmtrMerritt Allergies, Adverse Reactions, Alerts Substance Reaction Severity Status NKA Active Immunizations Given and Recorded Vaccine Date Status Refusal Reason Hepatitis B Vaccine (old term) 05/13/01 Given Hepatitis B Vaccine (old term)1 09/05/00 Given Hepatitis B Vaccine (old term) 02/27/00 Given tetanus-diphtheria toxoids (Td)2 02/05/99 Given Measles/Mumps/Rubella Virus Vaccine3 04/07/96 Given Measles/Mumps/Rubella Virus Vaccine 03/08/89 Given Miscellaneous Vaccine4 03/08/93 Given Miscellaneous Vaccine5 07/08/89 Given Miscellaneous Vaccine6 06/07/88 Given Miscellaneous Vaccine7 03/08/88 Given Diphth/Pertussis,Acel/Tetanus (oldterm)8 03/08/93 Given Diphth/Pertussis,Acel/Tetanus (oldterm)9 07/08/89 Given Diphth/Pertussis,Acel/Tetanus (oldterm)10 08/06/88 Given Diphth/Pertussis,Acel/Tetanus (oldterm)11 06/07/88 Given Diphth/Pertussis,Acel/Tetanus (oldterm)12 03/08/88 Given Haemophilus B Conj Vaccine (oldterm)13 07/08/89 Given 1Admin Note: exact date frjfhni7Hocur Note: exact date uxzaeen9Uwbmz Note: exact date royebor5Ubtwi Note: POLIO(oral) exact date uyxvngq2Wvlfm Note: POLIO(oral) exact date aftxngv5Fqzbv Note: POLIO(oral) exact date tdddkbl2Nowey Note: POLIO(oral) exact date fcglxxc4Hluhe Note: exact date zyzzwxy2Hgmxj Note: exact date unknown 10Admin Note: exact date pkfucgh43Flzed Note: exact date psoqgfm34Yazzi Note: exact date cemdqrj30Befgq Note: exact date unknown Medications azithromycin 250 mg oral capsule See Instructions, 4, tablet, 0, 0, 01/10/06 14:16:24, TAKE IN ONE DOSE, Print DERIK Number, [facility], [facility], Constant Indicator Start Date: 01/10/06 Status: Orderedbenzoyl peroxide topical 5% cream apply, Topically, 2 times a day, 45, Gm, 2, 2, 12/16/05 11:10:28, Print DERIK Number, [address] [place] [address], [id number], Constant Indicator Start Date: 12/16/05 Status: OrderedCeftriaxone Inj 250, mg, Intramuscular, Once, 0, 0, 01/10/06 14:16:01, Print DERIK Number, [facility]PP[facility], [facility], 42, Constant Indicator Start Date: 01/10/06 Status: OrderedCrutches 1, each, # 1 each, Maintenance, 04/13/10 21:11:31 Start Date: 04/13/10 Status: OrderedDepo-Provera Contraceptive 150, mg, Intramuscular, Once, 1, 0, 0, 01/23/07 14:50:21, Print DERIK Number, 42, Constant Indicator Start Date: 01/23/07 Stop Date: 04/23/07 Status: OrderedDepo-Provera Contraceptive 150 mg/ml intramuscular suspension = 150 mg, Intramuscular, Once, # 1 application, 0 Refills Start Date: 03/23/09 Stop Date: 03/23/09 Status: OrderedDepo-Provera Contraceptive 150 mg/ml intramuscular suspension 150, mg, Intramuscular, Once, 1, 0, 0, 04/14/06 15:33:06, Print DERIK Number, 42, Constant Indicator Start Date: 04/14/06 Status: OrderedDepo-Provera Contraceptive 150 mg/ml intramuscular suspension 150, mg, Intramuscular, Once, 0, 0, 01/07/06 10:19:43, Print DERIK Number, [facility], 42, Constant Indicator Start Date: 01/07/06 Status: OrderedDepo-Provera Contraceptive 150 mg/ml intramuscular suspension 150, mg, Intramuscular, Once, 0, 0, 01/23/06 15:15:09, Print DERIK Number, [facility], 42, Constant Indicator Start Date: 01/23/06 Status: OrderedDepo-Provera Contraceptive 150 mg/ml intramuscular suspension 150, mg, Intramuscular, Once, 1, 0, 0, 07/01/06 8:24:39, Print DERIK Number, 42, Constant Indicator Start Date: 07/01/06 Status: OrderedMacrobid 100, mg, By Mouth, 2 times a day, 14, 0, 0, 0, 02/10/08 9:15:42, 02/10/08 9:16:05, Print DERIK Number,[facility], [id number], Constant Indicator Start Date: 02/10/08 Stop Date: 02/17/08 Status: OrderedMotrin 400 mg oral tablet 400, mg, 1, tablet, By Mouth, Every 6 hours, 1, 0, 0, 12/16/05 11:05:04, Print DERIK Number, [facility], [address] [place] [address], 54, Constant Indicator Start Date: 12/16/05 Status: OrderedMotrin 400 mg oral tablet 800, mg, 2, tablet, By Mouth, Every 6 hours, 100, 4, 4, 12/16/05 11:05:06, Print DERIK Number, [address] [place] [address], 54, Constant Indicator Start Date: 12/16/05 Status: Orderedoxiconazole topical 1% cream See Instructions, 30, Gm, 0, 0, 01/23/07 14:50:50, Topically 2 times a day 14 days, Print DERIK Number, Constant Indicator Start Date: 01/23/07 Status: OrderedPenicillin Tablet 500, mg, By Mouth, Every 6 hours, 28, 0, 0, 03/22/08 20:23:29, None, Print DERIK Number, [facility], [facility] [address] [address], 54, Constant Indicator Start Date: 03/22/08 Stop Date: 03/29/08 Status: OrderedPrenatal Multivitamins with Folic Acid 1 mg oral capsule See Instructions, TAKE ONE DAILY BY MOUTH, # 100 tablet, 2 Refills, Maintenance, 05/12/19 15:04:00 EST, TAKE ONE DAILY BY MOUTH Start Date: 05/12/19 Status: OrderedPrenatal Rx with Folic Acid 1 mg oral tablet See Instructions, 100, 3, 3, 01/26/08 11:11:50, one tab daily by mouth, Print DERIK Number, Constant Indicator Start Date: 01/26/08 Status: OrderedTylenol with Codeine #3 Tablet (300mg/30mg) See Instructions, 24, tablet, 0, 0, 03/22/08 20:23:33, 1 tablet By Mouth Every 4-6 hours, Print DERIK Number, [facility], [facility] [address] [address], Constant Indicator Start Date: 03/22/08 Status: OrderedVicodin 5/500 Tablet 1, tablet, By Mouth, Every 4 hours, Scheduled / PRN, 12, tablet, 0, 0, 03/09/07 20:16:41, as needed for pain, Print DERIK Number, [facility], 51 Start Date: 03/09/07 Status: OrderedVicodin 500 mg-5 mg oral tablet 1 tablet, By Mouth, Every 6 hours, # 12 tablet, 0 Refills, Maintenance Start Date: 04/13/10 Stop Date: 04/16/10 Status: Ordered
--- OUTSIDE RECORDS SUMMARY | 2022-07-30 04:29 | XMS_ITS | Continuity of Care Document ---
:1985 Author Organization [facility] Address [address] [place] [id number]- Care Team Providers Name Role Phone Jake Caballero NP Primary Care Physician [facility] Date[facility]): 12/[facility]/19 - 12/07/[address] [address]- [facility] Discharge Disposition: A-D/C Home Attending Physician: Catalina Giron DO Admitting Physician: Catalina Giron DO Referring Physician: Catalina Giron DO Allergies, Adverse Reactions, Alerts Substance Reaction [...] (oldterm)14 07/08/89 Given 1Result Comment: administered left olo0Prluk Note: exact date rchbjuh1Gybqs Note: exact date gxjzvit2Uhmau Note: exact date hgbjjdt3Esrxh Note: POLIO(oral) exact date uwlgwvw8Kllpp Note: POLIO(oral) exact date zjztcec9Vzzvn Note: POLIO(oral) exact date wizvvwj1Gtrjg Note: POLIO(oral) exact date cmkgzxz8Kmqgq Note: exact date fszjjji47Vxmot Note: exact date qhvzdtg08Lugub Note: exact date wvfsyen92Zrxei Note: exact date waxnuan79Eyuyi Note: exact date nfeweyp57Rxrux Note: exact date unknown Medications acetaminophen 325 mg oral tablet 650 mg, By Mouth, Every 4 hours, PRN, Patient should only receive a total of 650mg of Acetaminophen every 4 hours., # 30 tablet, Refills 0, Tot. Refills 0, Maintenance, Pain , Mild, 12/07/19 5:41:00 EDT, Route to Pharmacy Electronically, [facility]/pharmacy... Start Date: 12/07/19 Status: Ordereddocusate sodium 100 mg oral capsule 1 capsule = 100 mg, By Mouth, 2 times a day, # 60 capsule, 0 Refills, Maintenance, 12/07/19 5:41:00 EDT, Capsule, [facility]/pharmacy #[id number], 168, cm, 12/07/19 0:26:00 EDT, Height, 84.3, kg, 12/05/19 21:27:00 EDT, Dry Weight Start Date: 12/07/19 Status: Orderedferrous sulfate 325 mg oral tablet 1 tablet = 325 mg, By Mouth, 2 times a day, # 90 tablet, 2 Refills, Maintenance, 09/16/19 9:16:00 EDT, Tablet, [facility]/pharmacy #[id number], 163, cm, 09/13/19 15:12:00 EDT, Height, 73, kg, 08/22/19 19:22:00 EDT,Dry Weight Start Date: 09/16/19 Status: Orderedibuprofen 600 mg oral tablet 600 mg, 1, tablet, By Mouth, 4 times a day, # 60 tablet, Refills 0, Tot. Refills 0, Maintenance, 12/07/19 5:41:00 EDT, Route to Pharmacy Electronically, [facility]/pharmacy #[id number], 168, cm, 12/07/19 0:26:00 [...] of depression(Confirmed)4 Active (Confirmed) [facility] Dr. 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 Vital Signs Most recent to oldest 1 2 3 [Reference Range]: Height 168 cm 168 cm 168 cm (12/07/19 8:00 AM) (12/07/19 12:06 AM) (12/06/19 5: 11 PM) Weight 84.3 kg 84.3 kg (12/05/19 8:47 PM) (12/05/19 6:35 PM) Oxygen Saturation [94-100 %] 95 % 97 % 99 % (12/07/19 8:00 AM) (12/07/19 12:06 AM) (12/06/19 5: 11 PM) Pulse Rate [55-90 bpm] 75 bpm 60 bpm 65 bpm (12/07/19 8:00 AM) (12/07/19 12:06 AM) (12/06/19 5: 11 PM) Body Mass Index [18.5-24.99] 29.87 *H* (12/05/19 8:47 PM) Blood Pressure [90-138/55-84 106/69 mm Hg 117/66 mm Hg 131 /58 mm Hg mm Hg] (12/07/19 8:00 AM) (12/07/19 12:06 AM) (12/06/19 5: 11 PM) Respiratory Rate [16-30 18 br/min 18 br/min 20 br/mi n br/min] (12/07/19 8:00 AM) (12/07/19 12:29 AM) (12/07/19 12 :06 AM) Temperature [96.8-100.4 DegF] 97.8 DegF 97.7 DegF 98 .6 DegF (12/07/19 8:00 AM) (12/07/19 12:06 AM) (12/06/19 5: 11 PM) Mode of Delivery (Oxygen) Room air Room air Room a ir (12/07/19 8:00 AM) (12/07/19 12:06 AM) (12/05/19 6: 43 PM) Blood pressure sites Arm, left Arm, left Arm, left (12/07/19 8:00 AM) (12/07/19 12:06 AM) (12/05/19 8: 47 PM) Temperature Route Oral Oral Oral (12/07/19 8:00 AM) (12/07/19 12:06 AM) (12/06/19 5: 11 PM) Dry Weight 84.3 kg 84.3 kg (12/05/19 8:47 PM) (12/05/19 6:35 PM) Weight Obtained Via Standing scale (12/05/19 6:35 PM) Dry Weight Obtained Via Standing scale (12/05/19 6:35 PM) Social History Social History Type Response Smoking Status Never (less than 100 in life time) entered on: 12/05/19 Sex Female
--- OUTSIDE RECORDS SUMMARY | 2022-07-30 04:29 | XMS_ITS | Continuity of Care Document ---
:1985 Author Organization [facility] ic Address [address] [place] [id number]- Care Team Providers Name Role Phone Jake Caballero NP Primary Care Physician [facility] Date[facility]s): 02/01/20 - 03/11/[address] [address]- [facility] Attending Physician: Not on Staff, Attending MD Referring Physician: Jake Caballero NP Allergies, [...] (oldterm)14 07/08/89 Given 1Result Comment: administered left vfi3Xalju Note: exact date ruetmdb4Xnggq Note: exact date nlazjge2Infuw Note: exact date vofnsyf7Qkayg Note: POLIO(oral) exact date anwvoyk8Ydcoq Note: POLIO(oral) exact date tzfzlkd7Dmwoh Note: POLIO(oral) exact date lfkrflb0Mwkks Note: POLIO(oral) exact date bkpctdp9Ogeui Note: exact date otajjjp69Shpux Note: exact date stnztls28Vwgrt Note: exact date rgbvecw26Qevsx Note: exact date kvvslty46Ojpey Note: exact date jwpazdc98Qpnag Note: exact date unknown Medications acetaminophen 325 mg oral tablet 650 mg, By Mouth, Every 4 hours, PRN, Patient should only receive a total of 650mg of Acetaminophen every 4 hours., # 30 tablet, Refills 0, Tot. Refills 0, Maintenance, Pain , Mild, 12/07/19 5:41:00 EDT, Route to Pharmacy Electronically, [facility]/pharmacy... Start Date: 12/07/19 Status: Ordereddocusate sodium 100 mg oral capsule 1 capsule = 100 mg, By Mouth, 2 times a day, # 60 capsule, 0 Refills, Maintenance, 12/07/19 5:41:00 EDT, Capsule, [facility]/pharmacy #[id number], 168, cm, 12/07/19 0:26:00 EDT, Height, 84.3, kg, 12/05/19 21:27:00 EDT, Dry Weight Start Date: 12/07/19 Status: Orderedferrous sulfate 325 mg oral tablet 1 tablet = 325 mg, By Mouth, 2 times a day, # 90 tablet, 2 Refills, Maintenance, 09/16/19 9:16:00 EDT, Tablet, [facility]/pharmacy #[id number], 163, cm, 09/13/19 15:12:00 EDT, Height, 73, kg, 08/22/19 19:22:00 EDT,Dry Weight Start Date: 09/16/19 Status: Orderedibuprofen 600 mg oral tablet 600 mg, 1, tablet, By Mouth, 4 times a day, # 60 tablet, Refills 0, Tot. Refills 0, Maintenance, 12/07/19 5:41:00 EDT, Route to Pharmacy Electronically, [facility]/pharmacy #[id number], 168, cm, 12/07/19 0:26:00 EDT, Height, 84.3, kg, 12/05/19 21:27:00 EDT, Dry We... Start Date: 12/07/19 Status: OrderedPrenatal Plus Low Iron oral tablet 1 tablet, By Mouth, Daily, # 90 tablet, 1 Refills, Maintenance, 02/04/20 10:42:00 EDT, [facility] STORE [id number], 90, TAKE 1 TABLET BY MOUTH EVERY DAY, 168, cm, 02/01/20 13:59:00 EDT, Height, 84.3, kg, 12/05/19 21:27:00 EDT, Dry Weight Start Date: 02/04/20 Status: Ordered Problem List Condition Effective Dates Status Health Status Informant Anemia(Confirmed) Active Bipolar disorder(Confirmed)1 Active Cardiac pacemaker(Confirmed)2, 3 2014 Active History of depression(Confirmed)4 Active (Confirmed) Active 1[facility]: Dr. GarciaBtuyszzehll7hyn severe bradycardia 4zoloft in the past Social History Social History Type Response Smoking Status Never (less than 100 in life time) entered on: 12/05/19 Sex
--- OUTSIDE RECORDS SUMMARY | 2022-07-30 04:29 | XMS_ITS | Continuity of Care Document ---
:1985 Author Organization [facility] ic Address [address] [place] [id number]- Care Team Providers Name Role Phone Ada CANELA, Jake Nair Primary Care Physician [facility] Date[facility]s): 05/23/21 - 06/22/[address] [address] Allergies, Adverse Reactions, Alerts No Known Allergies Immunizations Given and Recorded Vaccine Date Status [...] (oldterm)14 07/08/89 Given 1Result Comment: administered left grt4Qduzd Note: exact date obibuau6Ihngm Note: exact date wtigmsn2Gljhg Note: exact date mdtfaeb2Vpxte Note: POLIO(oral) exact date wwzqxyq7Cwbpb Note: POLIO(oral) exact date lkeeqam2Fscve Note: POLIO(oral) exact date nizcquk3Zxvlj Note: POLIO(oral) exact date ctbbnxv5Dbecs Note: exact date zvapfzb21Iaocy Note: exact date qtmvuwb54Oqnkl Note: exact date feqvhbp75Nnaqm Note: exact date aiyjzge02Rzutc Note: exact date gletpsx43Mcces Note: exact date unknown Medications acetaminophen 325 mg oral tablet 650 mg, By Mouth, Every 4 hours, PRN, Patient should only receive a total of 650mg of Acetaminophen every 4 hours., # 30 tablet, Refills 0, Tot. Refills 0, Maintenance, Pain , Mild, 12/07/19 5:41:00 EDT, Route to Pharmacy Electronically, [facility]/pharmacy... Start Date: 12/07/19 Status: Ordereddocusate sodium 100 mg oral capsule 1 capsule = 100 mg, By Mouth, 2 times a day, # 60 capsule, 0 Refills, Maintenance, 12/07/19 5:41:00 EDT, Capsule, [facility]/pharmacy #[id number], 168, cm, 12/07/19 0:26:00 EDT, Height, 84.3, kg, 12/05/19 21:27:00 EDT, Dry Weight Start Date: 12/07/19 Status: Orderedferrous sulfate 325 mg oral tablet 1 tablet = 325 mg, By Mouth, 2 times a day, # 90 tablet, 2 Refills, Maintenance, 09/16/19 9:16:00 EDT, Tablet, [facility]/pharmacy #[id number], 163, cm, 09/13/19 15:12:00 EDT, Height, 73, kg, 08/22/19 19:22:00 EDT,Dry Weight Start Date: 09/16/19 Status: Orderedibuprofen 600 mg oral tablet 600 mg, 1, tablet, By Mouth, 4 times a day, # 60 tablet, Refills 0, Tot. Refills 0, Maintenance, 12/07/19 5:41:00 EDT, Route to Pharmacy Electronically, [facility]/pharmacy #[id number], 168, cm, 12/07/19 0:26:00 EDT, Height, 84.3, kg, 12/05/19 21:27:00 EDT, Dry We... Start Date: 12/07/19 Status: OrderedPrenatal Plus Low Iron oral tablet 1 tablet, By Mouth, Daily, # 90 tablet, 1 Refills, Maintenance, 02/04/20 10:42:00 EDT, [id number], 90, TAKE 1 TABLET BY MOUTH EVERY DAY, 168, cm, 02/01/20 13:59:00 EDT, Height, 84.3, kg, 12/05/19 21:27:00 EDT, Dry Weight Start Date: 02/04/20 Status: Ordered Problem List Condition Effective Dates Status Health Status Informant Anemia(Confirmed) Active Bipolar disorder(Confirmed)1 Active Cardiac pacemaker(Confirmed)2, 3 2014 Active History of depression(Confirmed)4 Active (Confirmed) Active 1counselor at [facility] Jxoxxu4teqzaxgsgfyk: Dr. GarciaDgkavekwtmj9nad severe bradycardia 4zoloft in the past Social History Social History Type Response Smoking Status Never (less than 100 in life time) entered on: 12/05/19 Sex
--- OUTSIDE RECORDS SUMMARY | 2022-07-30 04:29 | XMS_ITS | Continuity of Care Document ---
:1985 Author Organization [facility] ic Address [address] [place] [address]- Care Team Providers Name Role Phone Jake Caballero NP Primary Care Physician [facility] Date[facility]s): 10/27/19 - 11/03/[address] [address]- [facility] Attending Physician: Krystal Stone MD Allergies, Adverse Reactions, Alerts Substance Reaction [...] (oldterm)14 07/08/89 Given 1Result Comment: administered left ezc9Eetkd Note: exact date qrudgbe8Wznfl Note: exact date synpihp8Etwqj Note: exact date qhoukof9Zxadm Note: POLIO(oral) exact date zshxnbb9Mdobt Note: POLIO(oral) exact date yhbjgmm4Jpkzn Note: POLIO(oral) exact date pgnwnyh5Cjraq Note: POLIO(oral) exact date jebnslg6Hsoab Note: exact date wyxabcc91Ihvvh Note: exact date btzfpmd26Dvnyz Note: exact date ppmjvil18Vfxgb Note: exact date sbmxyue42Kwmjp Note: exact date aavukuk14Vtrdw Note: exact date unknown Medications docusate-senna 50 [...] BY MOUTH Start Date: 05/12/19 Status: OrderedPrenatal Multivitamins with Folic Acid 1 mg oral tablet 1 tablet, By Mouth, Daily, # 30 tablet, 0 Refills, Maintenance, 10/13/19 16:34:00 EDT, Tablet, [id number], 1 tablet By Mouth Daily, 163, cm, 10/13/19 16:05:00 EDT, Height, 73, kg, 08/22/19 19:22:00 EDT, Dry Weight Start Date: 10/13/19 Status: Ordered Problem List Condition Effective Dates Status Health Status Informant Anemia(Confirmed) Active Bipolar disorder(Confirmed)1 Active Cardiac pacemaker(Confirmed)2, 3 2014 Active History of depression(Confirmed)4 Active (Confirmed) Active 1counselor at [facility] Zczune1yqhailmvsgdb: Dr. GarciaKykessuzxcv3zec severe bradycardia 4zoloft in the past Vital Signs Most recent to oldest [Reference Range]: 1 Height 163 cm (10/27/19 3:53 PM) Social History Social History Type Response Tobacco Use: 4 or less cigarettes(le ss than 1/4 pack)/day in last 30 days. Sex Female
[2022-07-30] MEDS: ondansetron HCL 4 MG/2 ML VIAL IVPUSH (05:01)
[2022-07-30] MEDS: Morphine Sulfate 4 MG/ML CARTRIDGE IVPUSH (05:02)
--- NOTE | 2022-07-30 05:41 | ED_ITS ---
HPI - Extremity Problem General Chief complaint: Extremity Problem Stated complaint: shoulder dislocation Time Seen by Provider: 07/30/22 04:43 Source: patient Mode of arrival: ambulatory Limitations: no limitations History of Present Illness HPI Narrative: Patient's history of recurrent shoulder dislocation patient multiple times plan for surgery, was coloring at a table popped of the right shoulder just prior to arrival. No fall no other injury Related Data Home Medications Medication Instructions Recorded Confirmed divalproex 500 mg tablet,delayed 500 mg PO DAILY 07/31/20 07/31/20 release (Depakote) quetiapine 50 mg tablet 100 mg PO BEDTIME 07/31/20 07/31/20 Previous Rx's Medication Instructions Recorded cyclobenzaprine 5 mg tablet 5 mg PO TID PRN muscle spasm #14 09/07/20 tabs ibuprofen 800 mg tablet 800 mg PO Q8H PRN pain #30 tabs 09/07/20 cyclobenzaprine 10 mg tablet 10 mg PO TID PRN muscle spasm #14 03/04/22 tabs ibuprofen 600 mg tablet 600 mg PO Q6H PRN pain #30 tabs 03/04/22 Allergies Allergy/AdvReac Type Severity Reaction Status Date / Time No Known Allergies Allergy Verified 08/09/20 11:34 [No Known Allergies*] Review of Systems Review of Systems: Yes all other systems are reviewed and are negative PMFSH Past Medical History Medical History Atrial arrhythmia Bradycardia Hx of bipolar disorder Normally functioning cardiac pacemaker present Pacemaker Sick sinus syndrome Speech impediment Surgical History Hx of cardiac pacemaker (~2014) Hx of laparoscopy Family History Family History Father No problems noted. Mother No problems noted. Social History Social History Alcohol intake: never Patient Tobacco Use Status: Never used Tobacco Advance Directives: No Advance Directives Information Provided: Yes Sexual orientation: Straight/Heterosexual Physical Exam Vital Signs: Vital Signs: Last Vital Signs Temp 97.7 F 07/30/22 06:27 Pulse 50 07/30/22 06:27 Resp 11 L 07/30/22 06:27 BP 117/55 L 07/30/22 06:27 Pulse Ox 100 07/30/22 06:27 O2 Del Method 07/30/22 05:50 Oxygen Flow Rate 0 07/30/22 06:27 BMI result Body Mass Index 22.3 Appearance: Alert. Oriented X3. In moderate distress. Eyes: PERRLA, ENT: Pharynx normal. Oral Mucosa moist Neck: Normal inspection. Neck supple. CVS: Normal heart rate and rhythm. Pulses normal. Respiratory: No respiratory distress. Equal air entry bilateral, no wheezing/rales/rhonchi Abdomen: Soft and nontender. Bowel sounds are present, Skin: Skin warm and dry. Normal skin color. Normal skin turgor. Extremities: No lower extremity edema. No calf tenderness right shoulder in adduction with obvious deformity suggestive of anterior shoulder dislocation with squared shoulder control neurovascular intact Neuro: Oriented X 3. No motor deficit. No sensory deficit. Medications Administered Discontinued Medications Generic Name Dose Route Start Last Admin Trade Name Freq PRN Reason Stop Dose Admin Morphine Sulfate 4 mg 07/30/22 04:48 07/30/22 05:02 Morphine Sulfate 4 Mg/Ml Cartridge IVPUSH 07/30/22 04:49 4 mg ONCE ONE Administration Protocol Ondansetron HCl 4 mg 07/30/22 04:48 07/30/22 05:01 Ondansetron Hcl 4 Mg/2 Ml Vial IVPUSH 07/30/22 04:49 4 mg ONCE ONE Administration Propofol 100 mg 07/30/22 05:41 07/30/22 06:21 Propofol 200 Mg/20 Ml Vial IVPUSH 07/30/22 05:42 50 mg ONCE ONE Administration Procedures Orthopedic Joint Reduction Joint #1: Time Out Performed: Yes Side: right Joint Reduction Location: shoulder Analgesia: procedural sedation Shoulder Technique Used (if applicable): external rotation Post-reduction neuro exam: intact Post-reduction vascular: intact Post Reduction X-Ray Obtained: Yes Post Reduction X-Ray Results: reduced Splint Applied: Yes Patient Tolerated Procedure: well Orthopedic Splinting/Casting Injury #1: Side: right Upper Extremity Injury Location: shoulder Upper Extremity Immobilizer: sling/shoulder immobilizer Procedural Sedation Indication: fracture/dislocation reduction ASA Class: I Mallampati Class: I Preparation: monitor and storage bin tender applied, pulse oximeter, capnometry used, suction/airway equipment at bedside and IV secured IV Propofol dose (mg): 50 Patient Tolerated Procedure: well and no complications Complications: none Discharge Plan Discharge Clinical Impression: Anterior shoulder dislocation Patient Disposition: Home, Self-Care Instructions: Shoulder Dislocation (ED) Additional Instructions: Wear the sling for support Avoid raising her right arm above shoulder for 2 weeks at least Follow-up with orthopedics Prescriptions: No Action ibuprofen 800 mg tablet 800 mg PO Q8H PRN (Reason: pain) Qty: 30 0RF cyclobenzaprine 5 mg tablet 5 mg PO TID PRN (Reason: muscle spasm) Qty: 14 0RF cyclobenzaprine 10 mg tablet 10 mg PO TID PRN (Reason: muscle spasm) Qty: 14 0RF ibuprofen 600 mg tablet 600 mg PO Q6H PRN (Reason: pain) Qty: 30 0RF quetiapine 50 mg tablet 100 mg PO BEDTIME divalproex [Depakote] 500 mg tablet,delayed release (DR/EC) 500 mg PO DAILY Referrals: Carlos A Guan MD [Physician] - 2 weeks
[2022-07-30 05:50] VITALS: BP 114/63; PULSE 50; RESP 13; TEMP 36.5; O2SAT 96
[2022-07-30 06:21] VITALS: BP 105/59; PULSE 50; RESP 13; O2SAT 97
[2022-07-30] MEDS: propofoL 200 MG/20 ML VIAL 100 MG IVPUSH (06:21)
[2022-07-30 06:27] VITALS: BP 117/55; PULSE 50; RESP 11; TEMP 36.5; O2SAT 100
--- NOTE | 2022-07-30 06:36 | PC.NURSE ---
Right shoulder put back in place. Pt sedated with Propofol 50mg. Pt tolerated well. Pt aox3. Breaths are even and unlabored. Sinus mary on monitor hr 50. Sling applied to right arm. Pt reports pain, 8/10.
--- NOTE | 2022-07-30 07:22 | PC.NURSE ---
Pt aox3. Able to ambulate to the restroom with no assistance. IV line removed. Pt tolerated well. Discharge instructions reviewed with pt. Pt verbalizes understanding.
== END 2022-07-30 07:23 | disposition home or self-care (01) ==
PROVIDERS: Emergency Provider Internal Medicine
DX: M24.411 Recurrent dislocation, right shoulder (principal); Z95.0 Presence of cardiac pacemaker
CPT/HCPCS: 23655; 73020; 73030; 96374; 96375; 99284; J2270; J2405

== ENCOUNTER 2022-09-06 17:18 | Emergency (ER) | payer OTHER, SELFPAY ==
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
[2022-09-06 17:23] VITALS: BP 115/68; BP 127/72; PULSE 108; PULSE 56; RESP 16; TEMP 36.1; O2SAT 100; O2SAT 99; BMI 24.7
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
[2022-09-06 19:43] VITALS: BP 118/75; PULSE 55; RESP 16; O2SAT 100
--- NOTE | 2022-09-06 20:41 | PC.NURSE ---
pt eloped from ED, pt stated to this RN I am not waiting any longer for this Cat scan, I'll just check back in tomorrow if it gets worse . This RN attempted to educate patient on danger of leaving prior to receiving results however pt proceeded to leave. [place] aware at this time
== END 2022-09-06 20:46 | disposition left against medical advice (07) ==
PROVIDERS: Emergency Provider Emergency Medicine
DX: S09.90XA Unspecified injury of head, initial encounter (principal); S00.12XA Contusion of left eyelid and periocular area, initial encounter; Y00.XXXA Assault by blunt object, initial encounter; Y93.9 Activity, unspecified; Y92.9 Unspecified place or not applicable; Y99.9 Unspecified external cause status
CPT/HCPCS: 70450; 70486; 99283; 99284

== ENCOUNTER 2022-10-31 13:34 | Emergency (ER) | payer OTHER, SELFPAY ==
--- NOTE | 2022-10-31 13:38 | ECG_ITS ---
Test Reason : overdose Blood Pressure : / mmHG Vent. Rate : 058 BPM Atrial Rate : 058 BPM P-R Int : 132 ms QRS Dur : 084 ms QT Int : 422 ms P-R-T Axes : -06 080 057 degrees QTc Int : 414 ms Sinus bradycardia Otherwise normal ECG When compared with ECG of 12-AUG-2019 00:03, Sinus rhythm has replaced Electronic atrial pacemaker Referred By: Rebecca Drew Electronically Signed By:ABDIAZIZ ORTIZ
[2022-10-31 13:45] VITALS: BP 117/80; BP 142/88; PULSE 102; PULSE 78; RESP 18; TEMP 36.8; O2SAT 98; O2SAT 99; BMI 24.3
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
[2022-10-31 14:25] LABS: MANUAL DIFF FLAG NO
[2022-10-31 14:31] LABS: Basophils Percent Auto 0.5 % (0-2); Eosinophils Absolute Auto 0.2 X10*3/uL (0.0-0.4); Eosinophils Percent Auto 2.1 % (0-4); Hematocrit 36.3 % (37.0-47.0); Hemoglobin 11.9 g/dl (12.0-16.0); Imm Gran Abs Auto 0.01 X10*3/uL (0.00-0.03); Imm Gran Pct Auto 0.1 % (0.0-0.4); Lymphocytes Absolute Auto 1.6 X10*3/uL (1.2-4.9); Lymphocytes Percent Auto 18.9 % (20-40); Mean Corpuscular HGB Conc 32.8 g/dl (31.0-35.0); Mean Corpuscular Volume 88.5 fL (80.0-98.0); Mean Platelet Volume 9.7 fL (9.4-12.3); Monocytes Absolute Auto 0.4 X10*3/uL (0.1-1.2); Monocytes Percent Auto 5.1 % (2-11); Neutrophils Percent Auto 73.3 % (45-73); Platelet Count 366 X10*3/uL (160-400); White Blood Count 8.2 X10*3/uL (4.8-10.8)
[2022-10-31 14:42] LABS: Ethanol < 10 mg/dL
[2022-10-31 14:47] LABS: Acetaminophen LAB < 17 mcg/mL (<30); Alanine Aminotransferase 12 U/L (0-31); Albumin Level 4.6 g/dL (3.5-5.0); Alkaline Phosphatase 64 U/L (39-117); Anion Gap 13 (12-20); Aspartate Amino Transferase 17 U/L (5-31); Bilirubin Direct 0.1 mg/dL (0.0-0.5); Bilirubin Total 0.4 mg/dL (0.0-1.0); Blood Urea Nitrogen 12 mg/dL (9-16); Calcium 9.8 mg/dL (8.4-10.2); Carbon Dioxide 21 mmol/L (22-29); Chloride 111 mmol/L (96-108); Creatinine Clr Calc Pharmacy 73.5; Estimated Glomerular Filt Rate > 60; Glucose Random 99 mg/dL (60-115); Magnesium 1.8 mg/dL (1.6-2.6); Potassium 4.2 mmol/L (3.3-5.1); Salicylate < 5.0 mg/dL (15-30); Sodium 141 mmol/L (135-145)
[2022-10-31 15:32] LABS: Appearance Urine Turbid; Color Urine Yellow; Glucose Urine UA Negative (Negative); Leukocyte Esterase Urine Small (1+) (Negative); Nitrite Urine Positive (Negative); PH 5.5 (5.0-9.0); Specific Gravity - Urine >= 1.030 (1.005-1.025); UMIC TRIGGER UACC YES; Urine Blood Large (3+) (Negative); Urine Ketones Trace mg/dL (Negative); Urine Protein 30 (1+) mg/dL (Neg-Trace)
[2022-10-31 15:40] LABS: Amphetamine Screen Urine Not Detected (Not Detect); Barbiturates, Urine Not Detected (Not Detect); Benzodiazepines Screen Urine Not Detected (Not Detect); Cannabinoid Screen Urine POSITIVE (Not Detect); Cocaine Screen Urine POSITIVE (Not Detect); Fentanyl, urine Not Detected (Not Detect); Opiate Screen Urine Not Detected (Not Detect); Phencyclidine Screen Urine Not Detected (Not Detect)
[2022-10-31 16:00] VITALS: BP 116/76; PULSE 64; RESP 16; TEMP 36.6; O2SAT 98
--- NOTE | 2022-10-31 16:15 | MHC.EDTECH ---
this pct assumed care of pt at 1500 ,vitals sign taken ,pt waiting for discharge paper work .
[2022-10-31 16:36] LABS: Bacteria Urine 4+ (None Seen); Hyaline Casts Urine 0-2 /LPF (0-2); UACC Culture Trigger YES
== END 2022-10-31 16:21 | disposition home or self-care (01) ==
PROVIDERS: Physician Assistant; Emergency Provider Emergency Medicine Emergency Medical Services
DX: R53.81 Other malaise (principal); T43.591A Poisoning by other antipsychotics and neuroleptics, accidental (unintentional), initial encounter; R00.1 Bradycardia, unspecified; Y92.009 Unspecified place in unspecified non-institutional (private) residence as the place of occurrence of the external cause; Z63.8 Other specified problems related to primary support group; Z79.899 Other long term (current) drug therapy
CPT/HCPCS: 36415; 80048; 80076; 80143; 80179; 80307; 81001; 83735; 85025; 87086; 87088; 87186; 93005; 99284

== ENCOUNTER → 2023-02-13 23:59 | Outpatient (BNV) | payer OTHER, SELFPAY ==
--- NOTE | 2023-02-13 16:09 | MHC.OFFVIS ---
Intake Intake Visit Reasons: Remote Device Check- Biotronik Allergies No Known Allergies [No Known Allergies*] Allergy (Verified 08/09/20 11:34) PFSH Medical History Atrial arrhythmia Bradycardia Hx of bipolar disorder Normally functioning cardiac pacemaker present Pacemaker Sick sinus syndrome Speech impediment Surgical History Hx of cardiac pacemaker (~2014) Hx of laparoscopy Family History Father No problems noted. Mother No problems noted. Social History Alcohol intake: never Patient Tobacco Use Status: Never used Tobacco Sexual orientation: Straight/Heterosexual Office Procedures Cardiac Device Check Cardiac Device Check Details: Date of service- 02/13/2023 ; Battery life 45%; normal lead parameters; AP 20%; INSECTICIDE EXPERT 2%; no significant arrhythmias. Overall normal device function. [id number] Cardiac Device Interrogation, pacemaker Procedure code (CPT) selection complete Assessment & Plan Assessment & Plan (1) Sick sinus syndrome: Code(s): I49.5 - Sick sinus syndrome (2) Atrial arrhythmia: Code(s): I49.8 - Other specified cardiac arrhythmias Coding Level of Care Code Procedure Only Diagnoses Sick sinus syndrome I49.5 Atrial arrhythmia I49.8 CPT Codes Cardiac Device Check - Cardiac Device 12: [id number] Cardiac Device Interrogation, pacemaker ([id number])
== END ==
PROVIDERS: Visit Provider Internal Medicine
DX: I49.5 Sick sinus syndrome (principal); I49.8 Other specified cardiac arrhythmias; Z95.0 Presence of cardiac pacemaker
CPT/HCPCS: 93294

== ENCOUNTER 2023-04-23 10:58 | Outpatient (AMB) | payer OTHER, SELFPAY ==
[2023-04-23 11:03] VITALS: BMI 24.2
--- NOTE | 2023-04-23 11:03 | A.OFFVIS_ITS ---
Intake Vital Signs 04/23/23 11:03 Height 5 ft 4 in Weight 141 lb BMI 24.2 Intake Visit Reasons: Right shoulder hx dislocation multiple times Intake Note: Delia lea 37 year old right hand dominant female presents today with mother for an evaluation of right shoulder. Patient reports shoulder has been popping out for years. States was suppose to have surgery but was unable to due to rides. Her shoulder dislocates daily and she will have to put back in place. States numbness and tingling in whole arm. Finds no relief with ibuprofen. Allergies No Known Allergies [No Known Allergies*] Allergy (Verified 04/23/23 11:07) Medication List - Last Reconciled 04/23/23 by More Wright PA-C cyclobenzaprine 5 mg PO TID PRN cyclobenzaprine 10 mg PO TID PRN divalproex (Depakote) 500 mg PO DAILY ibuprofen 800 mg PO Q8H PRN ibuprofen 600 mg PO Q6H PRN quetiapine 100 mg PO BEDTIME HPI Right shoulder hx dislocation multiple times HPI Details 37-year-old right hand dominant female carlos bates presents to the office today with her mother for evaluation of right shoulder. She has a history of shoulder dislocation multiple times and had her last dislocation being yesterday. She states she has dislocations in her shoulder daily with laying down or with movement and she has to put it back into place. She also c/o numbness and tingling in her whole hand. She finds no relief with ibuprofen. [facility] Medical History Atrial arrhythmia Bradycardia Hx of bipolar disorder Normally functioning cardiac pacemaker present Pacemaker Sick sinus syndrome Speech impediment Surgical History Hx of laparoscopy Hx of cardiac pacemaker (~2014) Family History Father No problems noted. Mother No problems noted. Social History (Updated 04/23/23 @ 11:08 by DEZ Davis) Alcohol intake: never Patient Tobacco Use Status: Never used Tobacco Current occupational status: unemployed Current occupation: right hand dominant Sexual orientation: Straight/Heterosexual Review of Systems Const All systems reviewed & are unremarkable except as noted in HPI and below Physical Exam Vital Signs: BMI result Body Mass Index 24.2 Extrem Other: Right shoulder normal to inspection. Tenderness over the bicipital groove and along the deltoid region of the shoulder. Forward flexion to 175, external rotation to 90, internal rotation to S1. 5/5 RTC strength. Positive Sulcus sign and positive apprehension test. NVI. Assessment & Plan Assessment & Plan (1) Recurrent dislocation, right shoulder: Code(s): M24.411 - Recurrent dislocation, right shoulder Plan An MRI arthrogram of the right shoulder has been ordered as she is not had a recent MRI in few years and she has had several dislocations of her right shoulder. I also encouraged her to obtain clearance by her first officer and flight instructor to determine if she is a surgical candidate to undergo anesthesia since she does have a pacemaker. She is content with this plan and will follow-up once these results are back. Orders: Orders MR shoulder RT w con Today M24.411 - Recurrent dislocation, right shoulder Patient Instructions: Scribed for More Wright PA-C, by Kolby Sr medical grade shoemaker, on 04/23/2023 at 11:00 AM TOM. More Banuelos PA-C, have personally reviewed and agree with the information entered by the scribe. Coding Level of Care Code Est Pt Level 3 (48657) Diagnoses Recurrent dislocation, right shoulder M24.411
== END 2023-04-23 11:37 | disposition home or self-care (01) ==
PROVIDERS: Visit Provider Physician Assistant
DX: M24.411 Recurrent dislocation, right shoulder (principal)
CPT/HCPCS: 99214

== ENCOUNTER → 2023-04-23 10:58 | Outpatient (BNVA) | payer OTHER, SELFPAY | PROVIDERS: Visit Provider Physician Assistant | DX: M24.411 Recurrent dislocation, right shoulder (principal) | CPT/HCPCS: 99212 ==

== ENCOUNTER → 2023-05-11 23:59 | Outpatient (BNV) | payer OTHER, SELFPAY ==
--- NOTE | 2023-05-13 19:31 | A.OFFVIS_ITS ---
Intake Intake Visit Reasons: Remote Device Check- Biotronik Allergies No Known Allergies [No Known Allergies*] Allergy (Verified 04/23/23 11:07) [facility] Medical History Atrial arrhythmia Bradycardia Hx of bipolar disorder Normally functioning cardiac pacemaker present Pacemaker Sick sinus syndrome Speech impediment Surgical History Hx of laparoscopy Hx of cardiac pacemaker (~2014) Family History Father No problems noted. Mother No problems noted. Social History (Updated 04/23/23 @ 11:08 by DEZ Davis) Alcohol intake: never Patient Tobacco Use Status: Never used Tobacco Current occupational status: unemployed Current occupation: right hand dominant Sexual orientation: Straight/Heterosexual Office Procedures Cardiac Device Check Cardiac Device Check Details: Date of service- 05/11/2023 ; Battery life 40%; normal lead parameters; AP 20%; FABRICATION DEPARTMENT SUPERVISOR 2%; no significant arrhythmias. Overall normal device function. [id number] Cardiac Device Interrogation, pacemaker Procedure code (CPT) selection complete Assessment & Plan Assessment & Plan (1) Sick sinus syndrome: Code(s): I49.5 - Sick sinus syndrome Plan x Coding Level of Care Code Procedure Only Diagnoses Sick sinus syndrome I49.5 CPT Codes Cardiac Device Check - Cardiac Device 12: [id number] Cardiac Device Interrogation, pacemaker ([id number])
== END ==
PROVIDERS: Visit Provider Internal Medicine
DX: I49.5 Sick sinus syndrome (principal); Z95.0 Presence of cardiac pacemaker
CPT/HCPCS: 93294

== ENCOUNTER 2023-07-31 13:39 | Outpatient (REF) | payer OTHER, SELFPAY ==
--- NOTE | ~2023-07-31 | FL_ITS ---
Right shoulder arthrogram Indications: Right shoulder pain. Intra-articular gadolinium injection is needed prior to MRI. Procedure: Risks and benefits and possible complications were discussed with the patient and the consent form was signed. The patient was placed supine on the fluoroscopy table. The right shoulder was prepped and draped in normal sterile fashion. 1% buffered lidocaine was used for anesthesia. A 22-gauge spinal needle was used to access the shoulder joint. Intra-articular position of the needle within the shoulder joint was verified using 3 cc of Omnipaque 300. A total of 10 mL of gadolinium/saline (1:200) contrast mixture was then injected into the shoulder joint. The needle was then removed and a Band-Aid was applied to the injection site. The patient tolerated the procedure well and was sent for to MRI. There were no immediate complications. FL/FL arthrogram shoulder RT Impression: Fluoroscopic right shoulder arthrogram The procedure was performed by kinga Guzman PA-C, and directly supervised by Dr. Silvestre.
== END 2023-07-31 13:40 | disposition home or self-care (01) ==
LOC: HO.XRAY 13:39
PROVIDERS: Visit Provider Physician Assistant
DX: M24.411 Recurrent dislocation, right shoulder (principal)
CPT/HCPCS: 23350; 73040

== ENCOUNTER → 2023-07-31 13:41 | Outpatient (BNV) | payer OTHER, SELFPAY | PROVIDERS: Visit Provider Physician Assistant Surgical | DX: M25.511 Pain in right shoulder (principal) | CPT/HCPCS: 23350; 73040 ==

== ENCOUNTER → 2023-08-10 23:59 | Outpatient (BNV) | payer OTHER, SELFPAY ==
--- NOTE | 2023-08-11 18:30 | MHC.OFFVIS ---
Intake Intake Visit Reasons: Remote Device Check- Biotronik Allergies No Known Allergies [No Known Allergies*] Allergy (Verified 04/23/23 11:07) [facility] Medical History Atrial arrhythmia Bradycardia Hx of bipolar disorder Normally functioning cardiac pacemaker present Pacemaker Sick sinus syndrome Speech impediment Surgical History Hx of laparoscopy Hx of cardiac pacemaker (~2014) Family History Father No problems noted. Mother No problems noted. Social History (Updated 04/23/23 @ 11:08 by DEZ Davis) Alcohol intake: never Patient Tobacco Use Status: Never used Tobacco Current occupational status: unemployed Current occupation: right hand dominant Sexual orientation: Straight/Heterosexual Office Procedures Cardiac Device Check Cardiac Device Check Details: Date of service- 08/10/2023 ; Battery life 40%; normal lead parameters; AP 19%; BLOWING ENGINEER 2%; no significant arrhythmias. Overall normal device function. [id number] Cardiac Device Interrogation, pacemaker Procedure code (CPT) selection complete Assessment & Plan Assessment & Plan (1) Sick sinus syndrome: Code(s): I49.5 - Sick sinus syndrome (2) Atrial arrhythmia: Code(s): I49.8 - Other specified cardiac arrhythmias Plan x Coding Level of Care Code Procedure Only Diagnoses Sick sinus syndrome I49.5 Atrial arrhythmia I49.8 CPT Codes Cardiac Device Check - Cardiac Device 12: [id number] Cardiac Device Interrogation, pacemaker ([id number])
== END ==
PROVIDERS: Visit Provider Internal Medicine
DX: I49.5 Sick sinus syndrome (principal); Z95.0 Presence of cardiac pacemaker
CPT/HCPCS: 93294

== ENCOUNTER 2023-11-05 00:59 | Emergency (ER) | payer OTHER, SELFPAY ==
--- NOTE | 2023-11-05 | ECG_ITS ---
Test Reason : CHEST PAIN Blood Pressure : / mmHG Vent. Rate : 070 BPM Atrial Rate : 070 BPM P-R Int : 148 ms QRS Dur : 080 ms QT Int : 410 ms P-R-T Axes : 059 066 039 degrees QTc Int : 442 ms Normal sinus rhythm Normal ECG When compared with ECG of 31-OCT-2022 14:24, No significant change was found Referred By: Generic ED Physician Electronically Signed By:ABDIAZIZ ORTIZ
--- NOTE | ~2023-11-05 | XR_ITS ---
EXAMINATION: XR CHEST CLINICAL INFORMATION: Substernal chest pain COMPARISON: 07/08/2020 TECHNIQUE: 2 views of the chest were obtained. FINDINGS: Left-sided pacemaker lead tips overlie the right atrium and right ventricle. Lung volumes are symmetric. No focal consolidation is seen. No evidence of pneumothorax, pleural effusion, or pulmonary edema. The cardiomediastinal contour is unremarkable. No acute osseous findings are seen. XR/XR chest 2V IMPRESSION: No acute cardiopulmonary findings.
[2023-11-05 01:09] VITALS: BP 108/70; BP 128/86; PULSE 79; PULSE 80; RESP 18; TEMP 36.9; O2SAT 96; O2SAT 98; BMI 23.3
[2023-11-05 01:28] LABS: MANUAL DIFF FLAG NO
--- NOTE | 2023-11-05 01:28 | MHC.EDTECH ---
PATIENT EKG TAKEN AND WAS READ BY PROVIDER ,BLOOD DRAWN AND SENT TO LAB .
[2023-11-05 01:29] LABS: Basophils Percent Auto 0.5 % (0-2); Eosinophils Absolute Auto 0.2 X10*3/uL (0.0-0.4); Eosinophils Percent Auto 2.7 % (0-4); Hematocrit 36.1 % (37.0-47.0); Hemoglobin 12.1 g/dl (12.0-16.0); Imm Gran Abs Auto 0.01 X10*3/uL (0.00-0.03); Imm Gran Pct Auto 0.2 % (0.0-0.4); Lymphocytes Absolute Auto 1.9 X10*3/uL (1.2-4.9); Lymphocytes Percent Auto 29.5 % (20-40); Mean Corpuscular HGB Conc 33.5 g/dl (31.0-35.0); Mean Corpuscular Hemoglobin 30.3 pg (27.0-33.0); Mean Corpuscular Volume 90.5 fL (80.0-98.0); Monocytes Absolute Auto 0.3 X10*3/uL (0.1-1.2); Monocytes Percent Auto 4.4 % (2-11); Neutrophils Percent Auto 62.7 % (45-73); Platelet Count 271 X10*3/uL (160-400); Red Blood Count 3.99 X10*6/uL (4.20-5.50); Red Cell Distribution Width 14.4 % (11.0-16.0); White Blood Count 6.4 X10*3/uL (4.8-10.8)
[2023-11-05 01:49] LABS: Alanine Aminotransferase 16 U/L (0-31); Albumin Level 4.4 g/dL (3.5-5.0); Alkaline Phosphatase 67 U/L (39-117); Anion Gap 14 (12-20); Aspartate Amino Transferase 20 U/L (5-31); Bilirubin Total 0.2 mg/dL (0.0-1.0); Blood Urea Nitrogen 9 mg/dL (9-16); Calcium 9.1 mg/dL (8.4-10.2); Carbon Dioxide 21 mmol/L (22-29); Chloride 110 mmol/L (96-108); Creatinine Clr Calc Pharmacy 77.9; Estimated Glomerular Filt Rate > 60; Glucose Random 88 mg/dL (60-115); Potassium 4.3 mmol/L (3.3-5.1); Sodium 141 mmol/L (135-145); Total Protein 7.5 g/dL (6.5-8.0)
[2023-11-05 01:54] LABS: Troponin-I High Sensitivity < 2.7 ng/L (<3.5-17.0)
== END 2023-11-05 03:04 | disposition left against medical advice (07) ==
PROVIDERS: Emergency Provider Emergency Medicine
DX: R07.9 Chest pain, unspecified (principal); R55 Syncope and collapse; M25.511 Pain in right shoulder; M24.411 Recurrent dislocation, right shoulder; F12.90 Cannabis use, unspecified, uncomplicated; Z95.0 Presence of cardiac pacemaker; Z53.21 Procedure and treatment not carried out due to patient leaving prior to being seen by health care provider
CPT/HCPCS: 36415; 71046; 80053; 84484; 85025; 93005; 99283

== ENCOUNTER → 2023-11-05 01:08 | Outpatient (BNV) | payer OTHER, SELFPAY | PROVIDERS: Emergency Provider Emergency Medicine; Visit Provider Internal Medicine | DX: R07.9 Chest pain, unspecified (principal) | CPT/HCPCS: 93010 ==

== ENCOUNTER → 2023-11-13 23:59 | Outpatient (BNV) | payer OTHER, SELFPAY ==
--- NOTE | 2023-11-16 11:16 | A.OFFVIS_ITS ---
Intake Visit Reasons: Remote Device Check- Biotronik Allergies No Known Allergies [No Known Allergies*] Allergy (Verified 11/05/23 01:15) [facility] Medical History Atrial arrhythmia Bradycardia Hx of bipolar disorder Normally functioning cardiac pacemaker present Pacemaker Sick sinus syndrome Speech impediment Surgical History Hx of laparoscopy Hx of cardiac pacemaker (~2014) Family History Father No problems noted. Mother No problems noted. 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 Overall normal device function. [id number] Cardiac Device Interrogation, pacemaker Procedure code (CPT) selection complete Assessment & Plan Assessment & Plan (1) Sick sinus syndrome: Code(s): I49.5 - Sick sinus syndrome Category: Medical (2) Atrial arrhythmia: Code(s): I49.8 - Other specified cardiac arrhythmias Category: Medical Plan x Coding Level of Care Code Procedure Only Diagnoses Sick sinus syndrome I49.5 Atrial arrhythmia I49.8 CPT Codes Cardiac Device Check - Cardiac Device 12: [id number] Cardiac Device Interrogation, pacemaker ([id number])
== END ==
PROVIDERS: Visit Provider Internal Medicine
DX: I49.5 Sick sinus syndrome (principal); I49.8 Other specified cardiac arrhythmias; Z95.0 Presence of cardiac pacemaker
CPT/HCPCS: 93294

== ENCOUNTER 2024-02-01 20:02 | Emergency (ER) | payer OTHER, SELFPAY ==
--- NOTE | 2024-02-01 | ECG_ITS ---
Test Reason : CHEST PAIN Blood Pressure : / mmHG Vent. Rate : 076 BPM Atrial Rate : 076 BPM P-R Int : 146 ms QRS Dur : 084 ms QT Int : 404 ms P-R-T Axes : 060 067 051 degrees QTc Int : 454 ms Normal sinus rhythm Normal ECG When compared with ECG of 05-NOV-2023 01:08, No significant change was found Referred By: Generic ED Physician Electronically Signed By:YOSHI STEARNS
--- NOTE | ~2024-02-01 | XR_ITS ---
EXAMINATION: XR PORTABLE CHEST CLINICAL INFORMATION: Left chest pain. COMPARISON: 11/05/2023 TECHNIQUE: AP portable upright view of the chest FINDINGS: Left pectoral pacemaker is noted with leads overlying the region of the right ventricle. Lungs are clear. No consolidation, pneumothorax, or pleural effusion. Cardiac and mediastinal contours are normal. Pulmonary vasculature is unremarkable. There is a 2 cm osseous fragment at the right humeral neck, most consistent with a loose body. Subtle cortical irregularity at the humeral head proximally. Mild right glenohumeral degenerative arthritis, potentially posttraumatic. XR/XR chest 1V IMPRESSION: 1. No acute cardiopulmonary findings. 2. A 2 cm osseous fragment at the right humeral neck, most consistent with a loose body. Electronically signed by: Juan Chawla MD 02/01/2024 11:04 PM EDT
[2024-02-01 20:08] VITALS: BP 114/76; PULSE 70; O2SAT 98
[2024-02-01 20:11] VITALS: BP 122/44; PULSE 64; RESP 16; TEMP 37; O2SAT 98; BMI 27.8
[2024-02-01 21:10] LABS: MANUAL DIFF FLAG NO
[2024-02-01 21:14] LABS: Basophils Percent Auto 0.2 % (0-2); Eosinophils Absolute Auto 0.1 X10*3/uL (0.0-0.4); Eosinophils Percent Auto 0.6 % (0-4); Imm Gran Abs Auto 0.03 X10*3/uL (0.00-0.03); Imm Gran Pct Auto 0.3 % (0.0-0.4); Lymphocytes Absolute Auto 1.2 X10*3/uL (1.2-4.9); Lymphocytes Percent Auto 11.2 % (20-40); Mean Corpuscular HGB Conc 34.4 g/dl (31.0-35.0); Mean Corpuscular Hemoglobin 31.1 pg (27.0-33.0); Mean Corpuscular Volume 90.4 fL (80.0-98.0); Mean Platelet Volume 9.7 fL (9.4-12.3); Monocytes Absolute Auto 0.9 X10*3/uL (0.1-1.2); Monocytes Percent Auto 8.3 % (2-11); Neutrophils Absolute Auto 8.2 x10*3/uL (2.0-8.3); Neutrophils Percent Auto 79.4 % (45-73); Platelet Count 233 X10*3/uL (160-400); Red Blood Count 3.54 X10*6/uL (4.20-5.50); Red Cell Distribution Width 14.7 % (11.0-16.0); White Blood Count 10.4 X10*3/uL (4.8-10.8)
[2024-02-01 21:31] LABS: Alanine Aminotransferase 13 U/L (0-31); Albumin Level 3.9 g/dL (3.5-5.0); Alkaline Phosphatase 62 U/L (39-117); Anion Gap 11 (12-20); Aspartate Amino Transferase 13 U/L (5-31); Bilirubin Total 0.5 mg/dL (0.0-1.0); Blood Urea Nitrogen 6 mg/dL (9-16); Calcium 8.5 mg/dL (8.4-10.2); Carbon Dioxide 21 mmol/L (22-29); Chloride 109 mmol/L (96-108); Creatinine Clr Calc Pharmacy 103.1; Estimated Glomerular Filt Rate > 60; Glucose Random 99 mg/dL (60-115); Lipase 17 U/L (8-78); Potassium 3.5 mmol/L (3.3-5.1); Sodium 137 mmol/L (135-145)
[2024-02-01 22:00] VITALS: BP 105/69; PULSE 65; RESP 18; TEMP 37.2; O2SAT 98
[2024-02-01 22:13] LABS: Troponin-I High Sensitivity < 2.7 ng/L (<3.5-17.0)
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
[2024-02-01 23:22] VITALS: BP 112/67; PULSE 79; RESP 16; TEMP 37.2; O2SAT 98
== END 2024-02-01 23:23 | disposition home or self-care (01) ==
PROVIDERS: Emergency Provider Emergency Medicine
DX: R07.89 Other chest pain (principal); Z79.899 Other long term (current) drug therapy
CPT/HCPCS: 36415; 71045; 80053; 83690; 84484; 85025; 93005; 99284; 99285

== ENCOUNTER → 2024-02-06 23:59 | Outpatient (BNV) | payer OTHER, SELFPAY ==
--- NOTE | 2024-02-15 13:35 | A.OFFVIS_ITS ---
Intake Visit Reasons: Remote device check- Biotronik Allergies No Known Allergies [No Known Allergies*] Allergy (Verified 02/01/24 20:14) [facility] Medical History Atrial arrhythmia Sick sinus syndrome Normally functioning cardiac pacemaker present Pacemaker Speech impediment Bradycardia Hx of bipolar disorder Surgical History Hx of laparoscopy Hx of cardiac pacemaker (~2014) Family History Father No problems noted. Mother No problems noted. 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 Overall normal device function. [id number] Cardiac Device Interrogation, pacemaker Procedure code (CPT) selection complete Assessment & Plan Assessment & Plan (1) Sick sinus syndrome: Code(s): I49.5 - Sick sinus syndrome Category: Medical (2) Atrial arrhythmia: Code(s): I49.8 - Other specified cardiac arrhythmias Category: Medical Plan x Coding Level of Care Code Procedure Only Diagnoses Sick sinus syndrome I49.5 Atrial arrhythmia I49.8 CPT Codes Cardiac Device Check - Cardiac Device 12: [id number] Cardiac Device Interrogation, pacemaker ([id number])
== END ==
PROVIDERS: Visit Provider Internal Medicine
DX: I49.5 Sick sinus syndrome (principal); I49.8 Other specified cardiac arrhythmias; Z95.0 Presence of cardiac pacemaker
CPT/HCPCS: 93294

== ENCOUNTER 2024-04-07 21:05 | Emergency (ER) | payer OTHER, SELFPAY ==
--- NOTE | ~2024-04-07 | XR_ITS ---
EXAMINATION: XR CHEST CLINICAL INFORMATION: Cough. COMPARISON: Chest x-ray February 01, 2024 TECHNIQUE: 2 views of the chest were obtained. FINDINGS: Pacemaker leads in right atrium and right ventricle. Heart size is normal. No pulmonary vascular congestion. Lungs normally aerated. No pleural effusion. Pectus excavatum XR/XR chest 2V IMPRESSION: No acute abnormality of chest. Electronically signed by: Polo Rivas MD 04/07/2024 11:43 PM EDT
[2024-04-07 21:11] VITALS: BP 108/72; BP 112/60; PULSE 102; PULSE 118; RESP 16; TEMP 38.4; O2SAT 97; BMI 25.8
[2024-04-07] MEDS: Acetaminophen 325 MG TABLET 650 MG PO (21:30)
[2024-04-07 21:54] LABS: MANUAL DIFF FLAG NO
[2024-04-07 21:58] LABS: Basophils Percent Auto 0.2 % (0-2); Eosinophils Percent Auto 0.1 % (0-4); Hematocrit 35.4 % (37.0-47.0); Hemoglobin 12.4 g/dl (12.0-16.0); Imm Gran Abs Auto 0.16 X10*3/uL (0.00-0.03); Imm Gran Pct Auto 0.9 % (0.0-0.4); Lymphocytes Absolute Auto 0.9 X10*3/uL (1.2-4.9); Lymphocytes Percent Auto 5.1 % (20-40); Mean Corpuscular Hemoglobin 30.5 pg (27.0-33.0); Mean Platelet Volume 10.2 fL (9.4-12.3); Monocytes Absolute Auto 1.3 X10*3/uL (0.1-1.2); Monocytes Percent Auto 7.5 % (2-11); Neutrophils Absolute Auto 14.9 x10*3/uL (2.0-8.3); Neutrophils Percent Auto 86.2 % (45-73); Platelet Count 215 X10*3/uL (160-400); Red Blood Count 4.07 X10*6/uL (4.20-5.50); Red Cell Distribution Width 13.9 % (11.0-16.0); White Blood Count 17.3 X10*3/uL (4.8-10.8)
[2024-04-07 22:05] LABS: Lactic Acid 1.1 mmol/L (0.5-2.0)
[2024-04-07 22:11] LABS: INTERNATIONAL NORM RATIO 1.2 (0.9-1.1); Prothrombin Time 13.9 SEC (10.9-12.4)
[2024-04-07 22:13] LABS: Partial Thromboplastin Time 24.4 SEC (26.0-36.8)
[2024-04-07 22:15] VITALS: BP 111/59; PULSE 86; RESP 18; TEMP 38; O2SAT 100
[2024-04-07 22:15] LABS: Alanine Aminotransferase 10 U/L (0-31); Albumin Level 4.1 g/dL (3.5-5.0); Alkaline Phosphatase 60 U/L (39-117); Anion Gap 12 (12-20); Aspartate Amino Transferase 15 U/L (5-31); Bilirubin Direct 0.2 mg/dL (0.0-0.5); Bilirubin Total 0.5 mg/dL (0.0-1.0); Blood Urea Nitrogen 7 mg/dL (9-16); Calcium 8.6 mg/dL (8.4-10.2); Carbon Dioxide 20 mmol/L (22-29); Chloride 105 mmol/L (96-108); Creatinine Clr Calc Pharmacy 89.1; Estimated Glomerular Filt Rate > 60; Glucose Random 125 mg/dL (60-115); Potassium 3.2 mmol/L (3.3-5.1); Sodium 134 mmol/L (135-145); Total Protein 7.4 g/dL (6.5-8.0)
[2024-04-07] MEDS: 0.9 % Sodium Chloride 1,000 ML 999 ML IV (22:25)
--- NOTE | 2024-04-07 22:36 | ED.GENADULT ---
HPI - General Adult General Chief complaint: Fever Stated complaint: N/V/D,cough,sob Time Seen by Provider: 04/07/24 22:32 Source: patient and EMS Mode of arrival: EMS Limitations: no limitations History of Present Illness HPI narrative: Patient is a 38-year-old female with past medical history of sick sinus syndrome with pacemaker, bipolar disorder who presents emergency department via EMS for evaluation. Reports symptom onset yesterday including general malaise, intermittent headache, nausea and vomiting with inability tolerate oral intake without any diarrhea or constipation, a productive cough with white phlegm resulting in diffuse pain across the lower ribs/upper abdomen. Denies any lower abdominal pain. Last menstrual period 04/03/2024, normal menses without concern for . Denies associated neck pain or neck stiffness. Denies any known sick contacts. Denies any recreational drug or alcohol usage. Related Data Home Medications ?Medication ?Instructions ?Recorded ?Confirmed divalproex 500 mg tablet,delayed 500 mg PO DAILY 07/31/20 07/31/20 release (Depakote) quetiapine 50 mg tablet 100 mg PO BEDTIME 07/31/20 04/23/23 Previous Rx's ?Medication ?Instructions ?Recorded cyclobenzaprine 5 mg tablet 5 mg PO TID PRN muscle spasm #14 09/07/20 tabs ibuprofen 800 mg tablet 800 mg PO Q8H PRN pain #30 tabs 09/07/20 cyclobenzaprine 10 mg tablet 10 mg PO TID PRN muscle spasm #14 03/04/22 tabs ibuprofen 600 mg tablet 600 mg PO Q6H PRN pain #30 tabs 03/04/22 ibuprofen 600 mg tablet 600 mg PO Q8H PRN fever or pain 02/01/24 #14 tabs cefuroxime axetil 250 mg tablet 250 mg PO BID #12 tabs 04/08/24 ondansetron 4 mg disintegrating 4 mg PO Q8H PRN nausea and 04/08/24 tablet vomiting #10 tabs Allergies Allergy/AdvReac Type Severity Reaction Status Date / Time No Known Allergies Allergy Verified 04/07/24 21:12 [No Known Allergies*] Review of Systems Review of Systems: Yes all other systems are reviewed and are negative PMFSH Past Medical History Attestation statement: The following information was validated with the patient. Source: old records reviewed Medical History Atrial arrhythmia Sick sinus syndrome Normally functioning cardiac pacemaker present Pacemaker Speech impediment Bradycardia Hx of bipolar disorder Surgical History Hx of laparoscopy Hx of cardiac pacemaker (~2014) Family History Family History Father No problems noted. Mother No problems noted. Social History Social History (Updated 04/23/23 @ 11:08 by Mallorie Adamson Garth) Alcohol intake: never Patient Tobacco Use Status: Never used Tobacco Advance Directives: No Advance Directives Information Provided: No Do you have a plan to hurt others: No Plan Patient : No Current occupational status: unemployed Current occupation: right hand dominant Sexual orientation: Straight/Heterosexual Physical Exam ED Vital Signs: Vital Signs - 24 hr 04/07/24 21:11 04/07/24 22:15 04/07/24 23:28 Temperature 101.2 F H 100.4 F 98.5 F Pulse Rate 102 H 86 85 Respiratory Rate 16 18 18 Blood Pressure 108/72 111/59 L 111/61 Pulse Oximetry 97 100 98 Oxygen Delivery Method Room Air Room Air Room Air 04/08/24 00:39 Temperature 98.5 F Pulse Rate 75 Respiratory Rate 16 Blood Pressure 104/57 L Pulse Oximetry 97 Oxygen Delivery Method Room Air BMI result Body Mass Index 25.8 Appearance: Alert.?Oriented to person, place and time. No acute distress.?Normal affect. Eyes: Pupils equal, round and reactive to light.? ENT: Pharynx normal. TM normal bilaterally?? Neck: Normal inspection.? Neck supple.??No cervical adenopathy CVS: Heart sounds normal. Normal heart rate and rhythm.? Pulses normal.?? Respiratory: No respiratory distress.? Lung sounds clear to auscultation except for diminished in the right lower lobe Abdomen: Soft with mild diffuse upper abdominal tenderness upon palpation. Negative Montalvo sign. No rigidity. No guarding. No CVAT.. Normoactive bowel sounds. Skin: Skin warm and dry.? Normal skin color.? Extremities: No lower extremity edema.? No calf ttp? Neuro: Moves all extremities spontaneously. Sensation intact bilaterally. No focal neuro deficits. Ambulates with normal steady gait. Course Reevaluation(s) Reevaluation #1: Workup revealing a urinary tract infection, provided with Rocephin in the emergency department, Viktoria, was able to tolerate p.o. trial without vomiting. No CVA tenderness to suggest acute pyelonephritis. No evidence of severe sepsis or end-organ dysfunction lactic acidosis At this time feel that she is stable for discharge home with course of oral antibiotics and outpatient follow-up with primary care provider and strict return precautions. All questions answered. Medications Administered Discontinued Medications Generic Name Dose Route Start Last Admin Trade Name Freq PRN Reason Stop Dose Admin Acetaminophen 650 mg 04/07/24 21:19 04/07/24 21:30 Acetaminophen 325 Mg Tablet PO 04/07/24 21:20 650 mg ONCE ONE Administration Ceftriaxone Sodium 1 gm 04/07/24 22:44 04/07/24 23:23 Ceftriaxone Sodium 1 Gm Vial IVPUSH 04/07/24 22:45 1 gm ONCE ONE Administration Sodium Chloride 1,000 mls @ 999 mls/hr 04/07/24 23:00 04/08/24 00:37 Ns IV 04/08/24 00:00 Infused .Q1H1M SELENA Infusion Ketorolac Tromethamine 15 mg 04/08/24 00:41 04/08/24 00:53 Ketorolac Tromethamine 15 Mg/Ml Vial IVPUSH 04/08/24 00:42 15 mg ONCE ONE Administration Ondansetron HCl 4 mg 04/07/24 22:44 04/07/24 23:23 Ondansetron Hcl 4 Mg/2 Ml Vial IVPUSH 04/07/24 22:45 4 mg ONCE ONE Administration Potassium Chloride 40 meq 04/07/24 22:44 04/07/24 23:23 Potassium Chloride Er 20 Meq Tab.Er.Prt PO 04/07/24 22:45 40 meq ONCE ONE Administration Medical Decision Making Medical Decision Making MDM Narrative: Patient is a 38-year-old female with past medical history of sick sinus syndrome with pacemaker, bipolar disorder who presents emergency department via EMS for evaluation of viral type symptoms as per HPI. She arrived mildly tachycardic and febrile, fever has improved with acetaminophen. Sepsis alert was called, blood cultures and lactic acid to be obtained, patient will receive 1 L normal saline IV fluid pending further evaluation, if hypotensive or evidence of severe sepsis will consider full sepsis fluid bolus order, covering with Rocephin. Obtaining CXR to evaluate for pneumonia, urinalysis to evaluate for infection. Although she does have diffuse upper abdominal tenderness as well as nausea and vomiting with poor p.o. intake, she is a negative Montalvo sign, will obtain LFTs and lipase for further evaluation and possibly cholecystitis, pancreatitis, gastroenteritis. Differential Diagnosis Differential Diagnoses: The differential diagnosis associated with the presentation includes (See narrative above) Admission/Observation Consideration of admission/observation: Escalation of care including admission/observation considered Lab Data MDM Lab Attestation statement: I reviewed the patient's lab results. CBC reveals leukocytosis 17.3 with left shift, no anemia, no thrombocytopenia. She is mildly hypokalemic at 3.2 which I suspect is secondary to volume loss with vomiting, replacing with potassium chloride 40 mEq p.o. No JOSE E. LFTs within normal range, lipase normal. No lactic acidosis. Viral serologies negative. Urinalysis is concerning for urinary tract infection 04/07/24 21:37 04/07/24 21:37 Labs: Lab Results 04/07/24 04/07/24 04/08/24 Range/Units 21:37 23:22 00:58 WBC 17.3 H (4.8-10.8) X10*3/uL RBC 4.07 L (4.20-5.50) X10*6/uL Hgb 12.4 (12.0-16.0) g/dl Hct 35.4 L (37.0-47.0) % MCV 87.0 (80.0-98.0) fL MCH 30.5 (27.0-33.0) pg MCHC 35.0 (31.0-35.0) g/dl RDW 13.9 (11.0-16.0) % Plt Count 215 (160-400) X10*3/uL MPV 10.2 (9.4-12.3) fL Immature Gran % (Auto) 0.9 H (0.0-0.4) % Neut % (Auto) 86.2 H (45-73) % Lymph % (Auto) 5.1 L (20-40) % [place] % (Auto) 7.5 (2-11) % Eos % (Auto) 0.1 (0-4) % Baso % (Auto) 0.2 (0-2) % Lymph # (Auto) 0.9 L (1.2-4.9) X10*3/uL [place] # (Auto) 1.3 H (0.1-1.2) X10*3/uL Eos # (Auto) 0.0 (0.0-0.4) X10*3/uL Baso # (Auto) 0.0 (0.0-0.2) X10*3/uL Abs Immat Gran (auto) 0.16 H (0.00-0.03) X10*3/uL Absolute Neuts (auto) 14.9 H (2.0-8.3) x10*3/uL Absolute Nucleated RBC 0.000 (0.0-0.012) X10*3/uL Nucleated RBC % (auto) 0.0 (0.0-0.2) /100WBC PT 13.9 H (10.9-12.4) SEC INR 1.2 H (0.9-1.1) APTT 24.4 L (26.0-36.8) SEC Sodium 134 L (135-145) mmol/L Potassium 3.2 L (3.3-5.1) mmol/L Chloride 105 (96-108) mmol/L Carbon Dioxide 20 L (22-29) mmol/L Anion Gap 12 (12-20) BUN 7 L (9-16) mg/dL Creatinine 0.89 (0.5-1.4) mg/dL Estim Creat Clear Calc 89.1 Estimated GFR > 60 Random Glucose 125 H (60-115) mg/dL Lactic Acid 1.1 (0.5-2.0) mmol/L Calcium 8.6 (8.4-10.2) mg/dL Total Bilirubin 0.5 (0.0-1.0) mg/dL Direct Bilirubin 0.2 (0.0-0.5) mg/dL AST 15 (5-31) U/L ALT 10 (0-31) U/L Alkaline Phosphatase 60 (39-117) U/L Total Protein 7.4 (6.5-8.0) g/dL Albumin 4.1 (3.5-5.0) g/dL Lipase 9 (8-78) U/L Urine Color Yellow Urine Appearance Clear Urine pH 6.5 (5.0-9.0) Ur Specific [place] 1.010 (1.005-1.025) Urine Protein 100 (2+) H (Neg-Trace) mg/dL Urine Glucose (UA) Negative (Negative) mg/dL Urine Ketones 15 (Negative) mg/dL Urine Blood Small (1+) H (Negative) Urine Nitrite Negative (Negative) Ur Leukocyte Esterase Large (3+) H (Negative) Urine RBC 0-2 (0-2) /HPF Urine WBC 21-50 H (0-5) /HPF Ur Squamous Epith Cells 6-10 (0-2) /HPF Urine Bacteria 2+ (None Seen) Hyaline Casts 0-2 (0-2) /LPF Urine Test NEGATIVE (NEGATIVE) Influenza Type A (PCR) NEGATIVE (Negative) Influenza Type B (PCR) NEGATIVE (Negative) RSV RNA Qual (PCR) NEGATIVE (Negative) SARS-CoV-2 RNA (RT-PCR) NEGATIVE (Negative) Independent Interpretation I performed an independent interpretation of an: Plain X-Ray (No pneumonia) Radiology Impression Discussion of test interpretation with radiology: I have reviewed the radiologist's reading. Radiologist Impression: XR/XR chest 2V IMPRESSION: No acute abnormality of chest. Independent Historian Clinical information obtained from an independent historian. History obtained from or confirmed by: EMS External Record Review External record reviewed: Outpatient record Discharge Plan Discharge Clinical Impression: Urinary tract infection, Acute hypokalemia Patient Disposition: Home, Self-Care Instructions: Urinary Tract Infection in Women (DC), Potassium Content of Foods List (ED) Additional Instructions: Complete the entire course of antibiotics as prescribed for treatment of urinary tract infection. Do not skip any doses or stopped taking early even if you begin to feel better. Your potassium was slightly low in the emergency department today which is likely due to your vomiting. Please follow-up instructions regarding foods that are high in potassium. A prescription for Zofran was sent to your pharmacy to use as needed for nausea/vomiting. You can take ibuprofen 200 mg, 3 tablets (600mg) every 6-8 hours as needed for pain, in addition to Tylenol 500 mg, 2 tablets (1,000mg) every 4-6 hours as needed for pain, but not to exceed 3 doses daily (3,000mg).? Prescriptions: New ondansetron 4 mg tablet,disintegrating 4 mg PO Q8H PRN (Reason: nausea and vomiting) Qty: 10 0RF cefuroxime axetil 250 mg tablet 250 mg PO BID Qty: 12 0RF No Action ibuprofen 800 mg tablet 800 mg PO Q8H PRN (Reason: pain) Qty: 30 0RF cyclobenzaprine 5 mg tablet 5 mg PO TID PRN (Reason: muscle spasm) Qty: 14 0RF cyclobenzaprine 10 mg tablet 10 mg PO TID PRN (Reason: muscle spasm) Qty: 14 0RF ibuprofen 600 mg tablet 600 mg PO Q6H PRN (Reason: pain) Qty: 30 0RF ibuprofen 600 mg tablet 600 mg PO Q8H PRN (Reason: fever or pain) Qty: 14 0RF quetiapine 50 mg tablet 100 mg PO BEDTIME divalproex [Depakote] 500 mg tablet,delayed release (DR/EC) 500 mg PO DAILY Referrals: Physician,None [Primary Care Provider] - Print Language: Nicaraguan
[2024-04-07 23:05] LABS: Lipase 9 U/L (8-78)
--- NOTE | 2024-04-07 23:19 | PC.NURSE ---
hand off to chasidy santana.
[2024-04-07] MEDS: cefTRIAXone sodium 1 GM VIAL IVPUSH (23:23)
[2024-04-07] MEDS: Potassium Chloride ER 20 MEQ TAB.ER.PRT 40 MEQ PO (23:23)
[2024-04-07] MEDS: ondansetron HCL 4 MG/2 ML VIAL IVPUSH (23:23)
[2024-04-07 23:28] VITALS: BP 111/61; PULSE 85; RESP 18; TEMP 36.9; O2SAT 98
[2024-04-07 23:34] LABS: Appearance Urine Clear; Color Urine Yellow; Glucose Urine UA Negative (Negative); Leukocyte Esterase Urine Large (3+) (Negative); Nitrite Urine Negative (Negative); PH 6.5 (5.0-9.0); UMIC TRIGGER UACC YES; Urine Blood Small (1+) (Negative); Urine Ketones 15 mg/dL (Negative); Urine Protein 100 (2+) mg/dL (Neg-Trace)
[2024-04-07 23:36] LABS: UPreg QC Valid YES; Urine Pregnancy NEGATIVE (NEGATIVE)
[2024-04-07 23:42] LABS: Bacteria Urine 2+ (None Seen); Hyaline Casts Urine 0-2 /LPF (0-2); RBC Urine 0-2 /HPF (0-2); UACC Culture Trigger YES; WBC Urine 21-50 /HPF (0-5)
[2024-04-08 00:39] VITALS: BP 104/57; PULSE 75; RESP 16; TEMP 36.9; O2SAT 97
--- NOTE | 2024-04-08 00:42 | PC.NURSE ---
Took report from off-going RN @ 2300 hours. Pt is a 38 y/o female who presents for evaluation of flu-like symptoms, general malaise, headache, and N/V/D since last night and cough with white sputum. Reports fever at home. Went introduce myself, pt is easily arousable with verbal stimuli. Is calm and cooperative, appropriate with staff. Pt asked to use the bathroom. Reports feeling steady enough to use bathroom independently without assistance. Upon changing positions in bed to the seated position, pt reports having some chest pain and a headache. Pt assisted to the bathroom and provider made aware of complaints. Toradol ordered for headache. Will continue to monitor for changes.
[2024-04-08] MEDS: Ketorolac Tromethamine 15 MG/ML VIAL IVPUSH (00:53)
[2024-04-08 01:37] LABS: Influenza A PCR NEGATIVE (Negative); Influenza B PCR NEGATIVE (Negative); Resp Syncy Virus RNA Qual PCR NEGATIVE (Negative); SARS COV2 PCR INHOUSE NEGATIVE (Negative)
[2024-04-08 02:12] VITALS: BP 107/63; PULSE 75; RESP 18; TEMP 37.4; O2SAT 97
--- NOTE | 2024-04-08 03:13 | PC.NURSE ---
This RN only Reviewed discharge instructions with pt. pt verbalized understanding, no sign of distress, Notified RN Johana. pt ambulated with a steady gait.
[2024-04-08 03:17] VITALS: BP 114/59; PULSE 96; RESP 16; TEMP 36.5; O2SAT 98
== END 2024-04-08 03:19 | disposition home or self-care (01) ==
PROVIDERS: Nurse Practitioner Family; Emergency Provider Emergency Medicine
DX: N39.0 Urinary tract infection, site not specified (principal); E87.6 Hypokalemia; R05.9 Cough, unspecified; R51.9 Headache, unspecified; R11.2 Nausea with vomiting, unspecified; R53.81 Other malaise; I49.5 Sick sinus syndrome; F31.9 Bipolar disorder, unspecified; Z95.0 Presence of cardiac pacemaker; Z79.899 Other long term (current) drug therapy; Z03.818 Encounter for observation for suspected exposure to other biological agents ruled out
CPT/HCPCS: 0241U; 36415; 71046; 80048; 80076; 81001; 81025; 83605; 83690; 85025; 85610; 85730; 87040; 87086; 87088; 87186; 96361; 96374; 96375; 99284; 99285; J0696; J1885; J2405

== ENCOUNTER 2025-01-31 12:42 | Outpatient (AMB) | payer OTHER, SELFPAY ==
--- NOTE | 2025-01-31 12:57 | A.OFFVIS_ITS ---
Vital Signs 01/31/25 12:58 Height 5 ft 6 in Weight 164 lb BMI 26.5 BP 106/60 Blood Pressure Location Lt brachial Position Sitting Pulse 52 Pulse Source Monitor Intake Visit Reasons: overdue biotronic and fu Allergies No Known Allergies (No Known Allergies*) Allergy (Verified 04/07/24 21:12) Medication List - Last Reconciled 01/31/25 by Francisco Olivares MD No Known Home Meds HPI Comments Details: Delia returns for follow-up regarding her pacemaker. She is currently incarcerated and comes here with a low enforcement supervision. Overall, it seems she is mostly doing well. Sometimes, when she is doing activities like going up stairs, she feels short of breath. Transient chest pains at times. Otherwise, getting along okay. [facility] Medical History Atrial arrhythmia Sick sinus syndrome Normally functioning cardiac pacemaker present Pacemaker Speech impediment Bradycardia Hx of bipolar disorder Surgical History Hx of laparoscopy Hx of cardiac pacemaker (~2014) Family History Father No problems noted. Mother No problems noted. Social History (Updated 04/23/23 @ 11:08 by Mallorie Adamson Garth) Alcohol intake: never Patient Tobacco Use Status: Never used Tobacco Current occupational status: unemployed Current occupation: right hand dominant Sexual orientation: Straight/Heterosexual Review of Systems Const Denies weakness ENT Denies dizziness Card Reports chest pain, Denies chest pain with activity, Denies syncope, Denies rapid heart rate, Denies pedal edema, Denies edema, Denies leg edema, Denies lightheadedness, Denies palpitations, Denies dyspnea, Denies dyspnea on exertion and Denies orthopnea Resp Denies cough, Denies dyspnea and Denies dyspnea on exertion GI Denies hematochezia and Denies change in stool character Musc Denies abnormal gait, Denies muscle cramps, Denies muscle weakness, Denies numbness, Denies radiating pain into limb and Denies tingling Neuro Denies abnormal gait, Denies dizziness, Denies syncope, Denies numbness, Denies tingling and Denies weakness Endo Denies palpitations Physical Exam Vital Signs: Last Vital Signs Pulse 52 01/31/25 12:58 BP 106/60 01/31/25 12:58 BMI result Body Mass Index 26.5 Const General: comfortable and no acute distress Orientation/consciousness: patient oriented x3 HEENT Other: Unremarkable Head: Yes normal to inspection Neck Neck: Yes normal visual inspection Chest Chest palpation & inspection: normal inspection of the chest Resp Auscultation: clear to auscultation bilaterally Cardio Palpation: normal PMI Heart sounds: S1 normal heart sound present, S2 normal heart sound present, no gallops, no murmurs and no rubs GI Palpation (GI): Soft to palpation Back/Spine/Pelvis Other: unremarkable Skin General skin exam: no rashes or lesions noted Neuro General: patient oriented x3 Extrem General: Yes normal to inspection Psych Mental Status: mental status grossly normal Office Procedures Cardiac Device Check Cardiac Device Check Details: Pacemaker interrogated today. Dual-chamber device, programmed [id number]. Battery status 3 years. Normal lead parameters. Pacing in the A/V-19/2%. Probably sinus tachycardia episodes but otherwise nothing significant. Overall, normal device function. 32613-BA Cardiac Device Check, pacemaker dual lead Procedure code (CPT) selection complete EKG Details: EKG with atrial paced rhythm at 52/Min. [id number], Complete Assessment & Plan Assessment & Plan (1) Sick sinus syndrome: Code(s): I49.5 - Sick sinus syndrome Category: Medical (2) Atrial arrhythmia: Code(s): I49.8 - Other specified cardiac arrhythmias Category: Medical (3) Normally functioning cardiac pacemaker present: Code(s): Z95.0 - Presence of cardiac pacemaker Category: Medical Plan Overall, normal pacemaker function and she is incarcerated for otherwise doing okay. With regard to shortness of breath, we will check an echocardiogram to look for any cardiomyopathy. If this is unremarkable, then no need for any further workup. Follow up in 6 months for device check. Once she is released from custodial (around march per patient), I strongly advised her to get a remote pacemaker set up so we can resume transmissions. Orders: Orders CA echo transthoracic complete Today R06.02 - Shortness of breath Coding Level of Care Code Est Pt Level 3 (68440) Diagnoses Sick sinus syndrome I49.5 Atrial arrhythmia I49.8 Normally functioning cardiac pacemaker present Z95.0 CPT Codes Cardiac Device Check - Cardiac Device 2: 55308-[id number] Cardiac Device Check, pacemaker dual lead ([id number]) EKG - CPT: 57069-[id number], Complete ([id number])
[2025-01-31 12:58] VITALS: BP 106/60; PULSE 52; BMI 26.5
--- OUTSIDE RECORDS SUMMARY | 2025-01-31 13:50 | XMS_ITS | Clinical Summary ---
[facility] Organization [facility] Address [address] [place] [address] Care Team Providers Care [employer] Name Role Phone Unavailable Primary Care Provider Unavailabl e Social History Tobacco Use Types Packs/Day Years Used Date Smoking Tobacco: Never Assessed Comments Unknown Sex and Gender Information Value Date Recorded Sex Assigned at Not on file Legal Sex Female 11:32 PM EST Gender Identity Not on file Sexual Orientation Not on file Plan of Treatment Health Maintenance Due Date Last Done Comments DTaP,Tdap,and Td Vaccines (1 - Tdap) 12/17/2006 Hepatitis B Vaccines (1 of 3 - 19+ 3-dose series) 12/17/2006 Cervical Cancer Screening: P ap Smear 12/17/2008 COVID-19 Vaccine ( - 2023-2 5 season) 2024 Depression Screening 06/09/2024 Influenza Vaccine (#1) 2025 HIB Vaccines Aged Out No longer eligi ble based on patient's age to complete this topic HPV Vaccines Aged Out No longer eligi ble based on patient's age to complete this topic Hepatitis A Vaccines Aged Out No long er eligible based on patient's age to complete this topic IPV Vaccines Aged Out No longer eligi ble based on patient's age to complete this topic MMR Vaccines Aged Out No longer eligi ble based on patient's age to complete this topic Meningococcal ACWY Vaccine Aged Out N o longer eligible based on patient's age to complete this topic Meningococcal B Vaccine Aged Out No l onger eligible based on patient's age to complete this topic Pneumococcal Vaccine: Pediat rics (0 to 5 Years) and At-Risk Patients (6 to 49 Years) Aged Out No longer eligible b ased on patient's age to complete this topic RSV Immunization Patients Un annamarie 20 months Aged Out No longer eligible b ased on patient's age to complete this topic Varicella Vaccines Aged Out No longer eligible based on patient's age to complete this topic
--- OUTSIDE RECORDS SUMMARY | 2025-01-31 13:50 | XMS_ITS | Encounter Summary ---
Author Organization [employer] Address [address] [facility] [address] [place] [address] Care Team Providers Care Food Storeroom Clerk Name Role Phone Brianda Mccain [facility] Primary Care Provider [phone] Hoa Dong [facility] Primary Care Provider Lelsey Tiffany Arias Primary Care Provider [phone] Reason for Visit * Reason Onset Date Comments Triage 09/09/2022 Encounter Details Date Type Department Care Team ([facility] st Contact Info) Description 09/09/2022 Telephone [facility] [address] [place] [address] RipplemeadBrianda [facility] [address] [place] [address] Triage Social History Tobacco Use Types Packs/Day Years Used Date Smoking Tobacco: Never Smokeless Tobacco: Never Comments:Vaping a couple earlene es a day. Alcohol Use Standard Drinks/Week Comments Yes 3 (1 standard drink = 0.6 oz pur e alcohol) Depression Answer Date Recorded Patient Health Questionnaire-9 Score 0 08/29/2022 Depression Answer Date Recorded Patient Health Questionnaire-2 Score 0 08/29/2022 Comments Unknown Sex and Gender Information Value Date Recorded Sex Assigned at Female 04/08/2022 10:21 AM EDT Legal Sex Female 10:21 AM EDT Gender Identity Female 08/26/2022 1:37 PM EDT Sexual Orientation Straight 08/26/2022 1: 37 PM EDT COVID-19 Exposure Response Date Recorded In the last 10 days, have yo u been in contact with someone who was confirmed or suspected to have Coronavirus/COVID-19? No / Unsure 08/29/2022 9:21 AM EDT documented as of this encounter Miscellaneous Notes * Telephone Encounter - Esme Jose RN - 09/09/2022 11:59 AM EDT Call to [employer] with [facility]. Reports pt having a head injury on Friday09/06/22. Pt was seen at [facility] and left without being seen. Pt has been called multiple times with no answer.No wellness check requested by them at this time. Call attempted to pt at number on file that was confirmed with Hoda as [phone]. No answer, Left SMS notification with call back number. Call to [place] [employer] [phone] requested wellness check for pt. Requested a call back if contact is made. Sent to PCP and team as FYI. Protocol Used: No Contact or Duplicate Contact Call (Adult) Protocol-Based Disposition: No Contact Call Positive Triage Question: * Message left on unidentified voice mail. Phone number verified. * All higher-acuity triage questions were negative * Telephone Encounter - Edith Bell - 09/09/2022 11:52 AM EDT Symptom: Head Injury Outcome: Schedule an urgent appointment (within 1 hour) or talk to a nurse or provider soon Reason: Getting worse The caller accepted this outcome Please contact pt at [phone] documented in this encounter Plan of Treatment Not on file documented as of this encounter Visit Diagnoses Not on filedocumented in this encounter Additional Health Concerns Assessment Noted Time PHQ-9 Depression Total Score: 0 08/30/19 9:34 AM EDT documented as of this encounter Care Teams Food Storeroom Clerk Relationship Specialty Start Date End Date Brianda Mccain FNP [address] [place] [address] PCP - General Family Medicine 11/29/21 02/19/23 Hoa Dong FNP [address] [place] [address] PCP - General Family Medicine 02/20/23 03/17/23 Tiffany Rocha ANP [address] [place] [address] PCP - General Family Medicine 03/18/23 07/29/23 documented as of this encounter
== END 2025-01-31 13:24 | disposition home or self-care (01) ==
PROVIDERS: Visit Provider Internal Medicine
DX: I49.5 Sick sinus syndrome (principal); I49.8 Other specified cardiac arrhythmias; Z95.0 Presence of cardiac pacemaker
CPT/HCPCS: 93010; 93280; 99213

== ENCOUNTER → 2025-01-31 12:42 | Outpatient (BNVA) | payer OTHER, SELFPAY | PROVIDERS: Visit Provider Internal Medicine | DX: I49.5 Sick sinus syndrome (principal); I49.8 Other specified cardiac arrhythmias; Z95.0 Presence of cardiac pacemaker | CPT/HCPCS: 93005; 93280; 99212 ==